=== PATIENT | female | born 1960 | race Caucasian/White ===

== ENCOUNTER → 2020-08-05 15:20 | Outpatient (BNVA) | payer OTHER, SELFPAY | PROVIDERS: PCP Physician Assistant Medical; Visit Provider Anesthesiology | DX: M79.18 Myalgia, other site (principal); M54.2 Cervicalgia; M47.812 Spondylosis without myelopathy or radiculopathy, cervical region | CPT/HCPCS: 20552; 99212; J3300 ==

== ENCOUNTER → 2020-09-09 16:03 | Outpatient (BNVA) | payer OTHER, SELFPAY | PROVIDERS: PCP Physician Assistant Medical; Visit Provider Anesthesiology | DX: Z76.89 Persons encountering health services in other specified circumstances (principal) ==

== ENCOUNTER 2020-09-29 05:24 | Outpatient (REF) | payer OTHER, SELFPAY ==
--- NOTE | 2020-09-29 13:51 | FL_ITS ---
EXAMINATION: XR FLUOROSCOPY WITH IMAGES CLINICAL INFORMATION: Left-sided neck pain. Spondylosis with myelopathy cortical atrophy. COMPARISON: None. TECHNIQUE: Fluoroscopy performed by Fara Gonzales NP. Fluoroscopy time: 0.6 minutes DAP: 1.90 Gycm2 Images: 6 FINDINGS: There are needle positioned lateral to right C3 through C7 facet joints for therapeutic MBB. The soft tissues are unremarkable. FL/FL guidance in treatment room IMPRESSION: Fluoroscopy was provided to referring position for right neck MBB.
== END 2020-09-29 05:25 | disposition home or self-care (01) ==
LOC: HO.RADIR 05:24
PROVIDERS: Visit Provider Anesthesiology
DX: M47.812 Spondylosis without myelopathy or radiculopathy, cervical region (principal); M54.2 Cervicalgia
CPT/HCPCS: 64490; 64491; 64492; J3300; Q9967

== ENCOUNTER → 2020-11-02 11:18 | Outpatient (BNVA) | payer OTHER, SELFPAY | PROVIDERS: PCP Internal Medicine; Visit Provider Anesthesiology ==

== ENCOUNTER 2021-01-26 06:11 | Outpatient (REF) | payer OTHER, SELFPAY ==
--- NOTE | ~2021-01-26 | FL_ITS ---
EXAMINATION: XR FLUOROSCOPY WITH IMAGES CLINICAL INFORMATION: M54.2 - Cervicalgia COMPARISON: Fluoroscopic spot views cervical spine 09/29/2020 TECHNIQUE: Fluoroscopy performed by Fara Gonzales NP. Fluoroscopy time: 0.6 minutes DAP: 3.04 Gycm2 Images: 5 FINDINGS: There are 5 spinal needles overlying lateral masses left side cervical spine approximately levels C3, C4, C5, C6, and C7. There is contrast noted in the nerve sheaths. No visible vascular communication. FL/FL guidance in treatment room IMPRESSION: Fluoroscopy for pain management procedures.
== END 2021-01-26 06:12 | disposition home or self-care (01) ==
LOC: HO.RADIR 06:11
PROVIDERS: Visit Provider Anesthesiology
DX: M47.812 Spondylosis without myelopathy or radiculopathy, cervical region (principal); M54.2 Cervicalgia; M79.18 Myalgia, other site
CPT/HCPCS: 64490; 64491; 64492; J1100; J3300; Q9967

== ENCOUNTER → 2021-03-01 08:18 | Outpatient (BNVA) | payer OTHER, SELFPAY | PROVIDERS: PCP Internal Medicine; Visit Provider Anesthesiology ==

== ENCOUNTER → 2021-04-26 10:04 | Outpatient (BNVA) | payer OTHER, SELFPAY | PROVIDERS: PCP Internal Medicine; Visit Provider Anesthesiology ==

== ENCOUNTER 2021-06-11 09:44 | Day surgery (SDC) | payer OTHER, SELFPAY ==
[2021-06-08 10:13] VITALS: BMI 26.9
--- NOTE | 2021-06-10 14:11 | HO.ANESPROP2 ---
HPI - Anesthesia Eval Consult details Narrative: 60yo F for Left Therapeutic C3-C7 Medial Branch Blocks PMFSH Active Problems Active Problems: All Active Problems (Updated 06/08/21 @ 10:06 by Roopa Spaulding RN) Myofascial pain syndrome (Acute) Spondylosis of cervical region without myelopathy or radiculopathy (Acute) Cervicalgia (Acute) Past Medical History Medical History Anxiety and depression Asthma Back pain Cervicalgia Hx of heartburn Hx of renal calculi Myofascial pain syndrome Shoulder pain, left Spondylosis of cervical region without myelopathy or radiculopathy Surgical History Surgical History Hx laparoscopic cholecystectomy Hx of colonoscopy Social History Social History (Updated 06/08/21 @ 10:08 by Roopa Spaulding RN) Patient Tobacco Use Status: Former Tobacco user Quit Date: 2001 Meds Allergies Allergy/AdvReac Type Severity Reaction Status Date / Time No Known Allergies Allergy Verified 06/11/21 11:04 Home Medications Medication Instructions Recorded Confirmed Last Taken Type atorvastatin 20 mg tablet 20 mg PO BEDTIME 08/05/20 06/08/21 Unknown History cholecalciferol (vitamin D3) 50 50 mcg PO DAILY 08/05/20 06/08/21 Unknown History mcg (2,000 unit) capsule methocarbamol 500 mg tablet 500 mg PO BID PRN 08/05/20 06/08/21 Unknown History clonidine HCl 0.1 mg tablet 0.1 mg PO BID 03/01/21 06/08/21 Unknown History albuterol sulfate 90 mcg/actuation 2 puff INHALATION QID PRN 06/08/21 06/08/21 Unknown History aerosol inhaler (ProAir HFA) bupropion HCl 150 mg 24 hr tablet, 150 mg PO QAM 06/08/21 06/08/21 06/11/21 08:20 History extended release fluticasone propionate 50 1 spray INTRANASAL DAILY 06/08/21 06/08/21 Unknown History mcg/actuation nasal spray,suspension sertraline 100 mg tablet (Zoloft) 100 mg PO BID 06/08/21 06/08/21 06/11/21 08:20 History trazodone 100 mg tablet 2 tab PO BEDTIME 06/08/21 06/08/21 Unknown History Exam Exam Date and Time: June 10, 2021 1412 Height,Weight and Vital Signs: Height 5 ft 7 in Weight 78.018 kg Assessment and Plan Assessment Anesthesia Assessment: Chart Reviewed
--- NOTE | ~2021-06-11 | FL_ITS ---
EXAMINATION: XR FLUOROSCOPY WITH IMAGES CLINICAL INFORMATION: Cervical pain. COMPARISON: None. TECHNIQUE: Fluoroscopy performed by Dr. Tanner Jones. Fluoroscopy time: 0.9 minutes DAP: 3.58 mGycm2 Images: 5 FINDINGS: There are 5 images of the AP cervical spine revealing needle positioned adjacent to left C6, C5, C4, C3 and C2 pedicles with contrast opacifying the C6 soft tissues. Visualized bones and the disc levels are maintained normal. FL/FL guidance in OR IMPRESSION: Fluoroscopy was provided to referring doctor for pain management.
[2021-06-11 11:15] VITALS: BP 149/73; PULSE 57; RESP 18; TEMP 36.8; O2SAT 98
[2021-06-11] MEDS: Lactated Ringers 1,000 ML 100 ML IVCONT (11:26)
--- NOTE | 2021-06-11 11:45 | MHC.SHP ---
Pre-Procedural Eval Section A Date of Service: 06/11/21 Section B Chief Complaint: spondylosis cervical Details of Present Illness: Spondylosis cervical without myelopathy or radiculopathy mostly on the left side. Relevant Family History (Specify if Yes): No Relevant Social History: None Present Medications: see Short Stay Collaborative assessment Medical History: No relevant PMH History of Previous Operations: No relevant previous surgery Allergies: Allergies Allergy/AdvReac Type Severity Reaction Status Date / Time No Known Allergies Allergy Verified 06/11/21 11:04 Review of Systems Sugical H&P ROS: Negative: Constitution, Cardiovascular, Respiratory, Neurological, Psychiatric, Hem-Onc, Allergic/Immunologic, Gastrointestinal, Genitourinary, Musculoskeletal, Integumentary, Endocrine and Eyes/Ears/Nose/Throat Exam Surgical H&P Exam: Normal: HEENT, Normal: Heart, Normal: Lungs, Normal: Extremities, Normal: Abdomen, Normal: Skin and Normal: Neurological Plan Diagnosis/Plan: Unchanged I have reviewed the history and physical and performed a pertinent physical examination on my patient. No changes have occurred unless specified.
--- NOTE | 2021-06-11 11:46 | P.BOP_ITS ---
Brief Operative Note Date of Service: 06/11/21 Pre-op diagnosis: Spondylosis cervical without myelopathy or radiculopathy Procedure: Left-sided C3-C4-C5-C6 and C7 medial branch blocks. Implants: None Surgeon: Tanner Jones MD Anesthesia: MAC Was an Lay Out Drafter used for this Procedure?: No Estimated blood loss (mL): 3 Pathology: none sent Condition: stable Disposition: PACU
--- NOTE | 2021-06-11 11:47 | W.PM.OPN ---
Operative Note Operative Note Date of Service: 06/11/21 Narrative: Informed consent was explained to the patient. All questions were explained and? answered.? The patient was taken inside the operating room where she was positioned prone on the operating table.? Citizen Of [place] Society of Anesthes[employer] monitors were applied.? Patient was minimally to moderately sedated. ? Time-out was performed delineating correct site, side, the nature of the procedure, patient's allergy, preoperative antibiotic if needed.? All operating room staff was participating in OR time-out procedure. ? ? The the back of the neck and upper back and shoulders were prepped with ChloraPrep and draped with sterile towels.? Sterilely draped C-arm was brought over the operating field and sq picture of C3 through C7 vertebrae were delineated on the screen.? Point of interest were delineated as left lateral masses of the vertebra as above. The waistline of each lateral mass of those vertebrae was chosen as the site of the injection. The projection of the point of interest to the skin were injected with the small amount of local anesthetic lidocaine 2% 1-1.5 cc.? After that 22 gauge 3-1/2 inch spinal needle was driven sequentially to the points of interest in tunnel vision fashion. After needles gently contacted the bone at the point of interests the needle was injected with small amount of the contrast.? The injection of the contrast did not demonstrate any intravascular or intrathecal spread of the contrast.? After that injection of the? bupivacaine 0.5%-1cc was performed at each needle location.? ? Upon completion of the injections? needle was? removed and sterile Band-Aids were applied.? The? patient was awaken and taken outside of the operating room to recovery room where she recovered uneventfully.
[2021-06-11 14:00] VITALS: BP 151/68; PULSE 61; RESP 16; TEMP 36.1; O2SAT 98
[2021-06-11 14:15] VITALS: BP 141/63; PULSE 57; RESP 18; TEMP 36.1; O2SAT 97
== END 2021-06-11 14:46 | disposition home or self-care (01) ==
PROVIDERS: Visit Provider Anesthesiology
PROC: (CPT 64490; principal; 2021-06-11 11:40)
DX: M47.812 Spondylosis without myelopathy or radiculopathy, cervical region (principal); M54.2 Cervicalgia; M79.18 Myalgia, other site
CPT/HCPCS: 64490; 64491; 64492; J2250; J3010; Q9967

== ENCOUNTER → 2021-07-19 11:43 | Outpatient (BNVA) | payer OTHER, SELFPAY | PROVIDERS: Visit Provider Anesthesiology ==

== ENCOUNTER 2021-08-24 05:49 | Outpatient (REF) | payer OTHER, SELFPAY ==
--- NOTE | ~2021-08-24 | FL_ITS ---
EXAMINATION: XR FLUOROSCOPY WITH IMAGES CLINICAL INFORMATION: M54.2 - Cervicalgia COMPARISON: Fluoroscopic spot views 06/11/2021 TECHNIQUE: Fluoroscopy performed by Dr. Tanner Jones. Fluoroscopy time: 0.8 minutes DAP: 2.64 Gycm2 Images: 5 FINDINGS: There are spinal needles overlying the left lateral masses approximately levels of C3-C7. There is contrast in the paraspinal soft tissues and nerve sheaths. No visible vascular communication. FL/FL guidance in treatment room IMPRESSION: Fluoroscopy for pain management procedures.
== END 2021-08-24 05:50 | disposition home or self-care (01) ==
LOC: HO.RADIR 05:49
PROVIDERS: Visit Provider Anesthesiology
DX: M54.2 Cervicalgia (principal); M47.812 Spondylosis without myelopathy or radiculopathy, cervical region; M79.18 Myalgia, other site
CPT/HCPCS: 64490; 64491; 64492; J3300; Q9967

== ENCOUNTER → 2021-10-11 11:41 | Outpatient (BNVA) | payer OTHER, SELFPAY | PROVIDERS: Visit Provider Anesthesiology | DX: M54.2 Cervicalgia (principal); M47.812 Spondylosis without myelopathy or radiculopathy, cervical region; M79.18 Myalgia, other site | CPT/HCPCS: 99212 ==

== ENCOUNTER → 2021-11-01 11:07 | Outpatient (BNVA) | payer OTHER, SELFPAY | PROVIDERS: Visit Provider Anesthesiology | DX: M54.2 Cervicalgia (principal); M47.812 Spondylosis without myelopathy or radiculopathy, cervical region; M79.18 Myalgia, other site | CPT/HCPCS: 99212 ==

== ENCOUNTER → 2021-11-22 11:10 | Outpatient (BNVA) | payer OTHER, SELFPAY | PROVIDERS: Visit Provider Anesthesiology | DX: M54.2 Cervicalgia (principal); M47.812 Spondylosis without myelopathy or radiculopathy, cervical region; M79.18 Myalgia, other site | CPT/HCPCS: 99212 ==

== ENCOUNTER 2022-04-12 06:14 | Outpatient (REF) | payer OTHER, SELFPAY ==
--- NOTE | ~2022-04-12 | FL_ITS ---
EXAMINATION: XR FLUOROSCOPY WITH IMAGES CLINICAL INFORMATION: M47.812 - Spondylosis without myelopathy or radiculopathy, cervical region COMPARISON: None. TECHNIQUE: Fluoroscopy performed by Dr. Tanner Jones. Fluoroscopy time: 0.9 minutes. Cumulative Dose: 3.47 mGy. DAP: 0.947 Gy-cm2. Images: 6. FINDINGS: There are spinal needles overlying the left lateral masses cervical spine approximately levels of C3 through C7. There is contrast in the paraspinal soft tissues and some nerve sheaths. No visible vascular communication. FL/FL guidance in treatment room IMPRESSION: Fluoroscopy for pain management procedure.
== END 2022-04-12 06:15 | disposition home or self-care (01) ==
LOC: HO.RADIR 06:14
PROVIDERS: Visit Provider Anesthesiology
DX: M47.812 Spondylosis without myelopathy or radiculopathy, cervical region (principal); M54.2 Cervicalgia
CPT/HCPCS: 64490; 64491; 64492; J1100; J3300; J3301

== ENCOUNTER → 2022-06-20 14:57 | Outpatient (BNVA) | payer OTHER, SELFPAY | PROVIDERS: Visit Provider Anesthesiology | DX: M54.2 Cervicalgia (principal); M47.812 Spondylosis without myelopathy or radiculopathy, cervical region; M79.18 Myalgia, other site; M46.1 Sacroiliitis, not elsewhere classified; M53.3 Sacrococcygeal disorders, not elsewhere classified | CPT/HCPCS: 20552; 99212; J2795; J3300; J3301 ==

== ENCOUNTER 2022-07-12 06:12 | Outpatient (REF) | payer OTHER, SELFPAY ==
--- NOTE | ~2022-07-12 | FL_ITS ---
EXAMINATION: XR FLUOROSCOPY WITH IMAGES CLINICAL INFORMATION: M53.3 - Sacrococcygeal disorders, not elsewhere classified COMPARISON: None. TECHNIQUE: Fluoroscopy performed by Dr. Tanner Jones. Fluoroscopy time: 0.1 minutes. Cumulative Dose: 2.34 mGy. DAP: 0.638 Gy-cm2. Images: 2. FINDINGS: Spinal needle overlies the mid left SI joint. There is contrast in the periarticular soft tissues with probable early intra-articular contrast. No vasculature communication appreciated. FL/FL guidance in treatment room IMPRESSION: Fluoroscopy for pain management procedure.
== END 2022-07-12 06:13 | disposition home or self-care (01) ==
LOC: CF 06:12
PROVIDERS: Visit Provider Anesthesiology
DX: M46.1 Sacroiliitis, not elsewhere classified (principal); M53.3 Sacrococcygeal disorders, not elsewhere classified; M47.812 Spondylosis without myelopathy or radiculopathy, cervical region; M79.18 Myalgia, other site; M54.2 Cervicalgia
CPT/HCPCS: 27096; J2795; J3300; J3301

== ENCOUNTER → 2022-08-29 08:17 | Outpatient (BNVA) | payer OTHER, SELFPAY | PROVIDERS: Visit Provider Anesthesiology | DX: M47.812 Spondylosis without myelopathy or radiculopathy, cervical region (principal); M54.2 Cervicalgia; M79.18 Myalgia, other site; M46.1 Sacroiliitis, not elsewhere classified; M53.3 Sacrococcygeal disorders, not elsewhere classified | CPT/HCPCS: 99212 ==

== ENCOUNTER → 2022-10-05 15:46 | Outpatient (BNVA) | payer OTHER, SELFPAY | PROVIDERS: Visit Provider Anesthesiology | DX: M54.2 Cervicalgia (principal); M47.812 Spondylosis without myelopathy or radiculopathy, cervical region; M79.18 Myalgia, other site; M46.1 Sacroiliitis, not elsewhere classified; M53.3 Sacrococcygeal disorders, not elsewhere classified | CPT/HCPCS: 20552; J2795; J3301 ==

== ENCOUNTER → 2022-12-05 08:50 | Outpatient (BNVA) | payer OTHER, SELFPAY | PROVIDERS: Visit Provider Anesthesiology | DX: M54.2 Cervicalgia (principal); M47.812 Spondylosis without myelopathy or radiculopathy, cervical region; M79.18 Myalgia, other site; M46.1 Sacroiliitis, not elsewhere classified; M53.3 Sacrococcygeal disorders, not elsewhere classified | CPT/HCPCS: 99212 ==

== ENCOUNTER → 2023-04-26 13:32 | Outpatient (BNVA) | payer OTHER, SELFPAY | PROVIDERS: Visit Provider Physician Assistant Medical | DX: S90.31XD Contusion of right foot, subsequent encounter (principal); W22.8XXA Striking against or struck by other objects, initial encounter | CPT/HCPCS: 99203 ==

== ENCOUNTER 2023-05-17 11:42 | Outpatient (AMB) | payer OTHER, SELFPAY ==
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
[2023-05-17 11:50] VITALS: BP 126/68; PULSE 71; RESP 17; O2SAT 97; BMI 27.7
== END 2023-05-17 12:04 | disposition home or self-care (01) ==
PROVIDERS: Visit Provider Anesthesiology
DX: M54.2 Cervicalgia (principal); M47.812 Spondylosis without myelopathy or radiculopathy, cervical region; M79.18 Myalgia, other site; M46.1 Sacroiliitis, not elsewhere classified; M53.3 Sacrococcygeal disorders, not elsewhere classified
CPT/HCPCS: 99214

== ENCOUNTER → 2023-05-17 11:42 | Outpatient (BNVA) | payer OTHER, SELFPAY | PROVIDERS: Visit Provider Anesthesiology | DX: M47.812 Spondylosis without myelopathy or radiculopathy, cervical region (principal); M54.2 Cervicalgia; M79.18 Myalgia, other site; M46.1 Sacroiliitis, not elsewhere classified; M53.3 Sacrococcygeal disorders, not elsewhere classified | CPT/HCPCS: 99212 ==

== ENCOUNTER 2023-06-06 06:03 | Outpatient (REF) | payer OTHER, SELFPAY ==
--- NOTE | ~2023-06-06 | FL_ITS ---
EXAMINATION: XR FLUOROSCOPY WITH IMAGES CLINICAL INFORMATION: Spondylosis without myelopathy or radiculopathy, cervical region. COMPARISON: None available. TECHNIQUE: Fluoroscopy Supervised By: Dr. Tanner Jones. Fluoroscopy Time: 0.5 minutes. Cumulative Dose: 3.34 mGy. DAP: 0.891 Gycm2. Images: 5. FINDINGS: Images demonstrate needle placement and contrast injection adjacent to the posterior lateral left C3-C6 vertebrae. FL/FL guidance in treatment room IMPRESSION: Fluoroscopic guidance for pain management procedure.
== END 2023-06-06 06:04 | disposition home or self-care (01) ==
LOC: CF 06:03
PROVIDERS: Visit Provider Anesthesiology
DX: M47.812 Spondylosis without myelopathy or radiculopathy, cervical region (principal); M54.2 Cervicalgia
CPT/HCPCS: 64490; 64491; 64492; J3301

== ENCOUNTER 2023-06-06 09:22 | Outpatient (AMB) | payer OTHER, SELFPAY ==
--- NOTE | 2023-06-06 09:51 | MHC.OFFVIS ---
Intake Vital Signs 06/06/23 10:42 06/06/23 10:43 Height 5 ft 7 in 5 ft 7 in Weight 177 lb 177 lb BMI 27.7 27.7 BP 114/70 120/80 Blood Pressure Location Lt brachial Lt brachial Position Sitting Sitting Respiration 16 16 Pulse 62 64 Pulse Source Pulse Oximeter Pulse Oximeter Pulse Oximetry (%) 96 97 Oxygen Delivery Method Room Air Room Air Comment pre-op post-op Intake Visit Reasons: L C3-C4-C5-C6 THERAPEUTIC MBB/LOCAL *ATIVAN Allergies No Known Allergies Allergy (Verified 06/06/23 10:44) PFSH Medical History (Updated 06/20/22 @ 15:47 by Tanner Jones MD) Hx of heartburn Hx of renal calculi Anxiety and depression Asthma Shoulder pain, left Back pain Myofascial pain syndrome Spondylosis of cervical region without myelopathy or radiculopathy Cervicalgia Surgical History Hx of colonoscopy Hx laparoscopic cholecystectomy Social History (Updated 06/08/21 @ 10:08 by Roopa Spaulding RN) Patient Tobacco Use Status: Former Tobacco user Quit Date: 2001 Physical Exam Vital Signs: Last Vital Signs Pulse 64 06/06/23 10:43 Resp 16 06/06/23 10:43 BP 120/80 06/06/23 10:43 Pulse Ox 97 06/06/23 10:43 Oxygen Delivery Method Room Air 06/06/23 10:43 BMI result Body Mass Index 27.7 Assessment & Plan Assessment & Plan (1) Spondylosis of cervical region without myelopathy or radiculopathy: Code(s): M47.812 - Spondylosis without myelopathy or radiculopathy, cervical region (2) Cervicalgia: Code(s): M54.2 - Cervicalgia Plan Therapeutic Cervical MBBs Informed consent was explained to the patient. All questions were explained and? answered.? The patient was taken inside the operating room where the patient was positioned prone on the operating table.. Time-out was performed delineating correct site, side, the nature of the procedure, patient's allergy, preoperative antibiotic if needed.? All operating room staff was participating in OR time-out procedure. The posterior neck was prepped with ChloraPrep and draped with sterile towels.? Sterilely draped C-arm was brought over the operating field and square picture of C3, C4,C5, C6? vertebrae? were delineated on the screen.? Point of interest were delineated as left lateral? masses of the above mentioned vertebrae. The waste line of the lateral masses on the left was chosen as the final needle target.The projection of the point of interest to the skin were injected with the small amount of local anesthetic lidocaine 2% 1-1.5 cc.? After that 22 gauge QP spinal needles were driven to the point of interest in tunnel vision fashion. After needles gently contacted the bone at the point of interests the lateral view was obtained for each needle and needle? was adjusted to be in the centroid of the lateral mass paralelloid projection. the needles was injected with small amount of bupivacaine 0.5%-1cc mixad with kenalog. Total dose of kenalog was 40 mg..? Upon completion of the injections? needles were removed and sterile dressings were applied patient was awaken and taken outside of the operating room to recovery room where she recovered uneventfully.? Orders: Orders FL guidance in treatment room Today M47.812 - Spondylosis without myelopathy or radiculopathy, cervical region Coding Level of Care Code Procedure Only Diagnoses Spondylosis of cervical region without myelopathy or radiculopathy M47.812 Cervicalgia M54.2
[2023-06-06 10:42] VITALS: BP 114/70; PULSE 62; RESP 16; O2SAT 96; BMI 27.7
[2023-06-06 10:43] VITALS: BP 120/80; PULSE 64; RESP 16; O2SAT 97; BMI 27.7
== END 2023-06-06 09:53 | disposition home or self-care (01) ==
LOC: HO.PMCPRC 09:22
PROVIDERS: Visit Provider Anesthesiology
DX: M47.812 Spondylosis without myelopathy or radiculopathy, cervical region (principal); M54.2 Cervicalgia
CPT/HCPCS: 64490; 64491; 64492

== ENCOUNTER 2023-07-10 10:25 | Outpatient (AMB) | payer OTHER, SELFPAY ==
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
[2023-07-10 10:54] VITALS: BP 146/65; PULSE 95; RESP 14; O2SAT 96; BMI 27.2
== END 2023-07-10 10:54 | disposition home or self-care (01) ==
PROVIDERS: Visit Provider Anesthesiology
DX: M54.2 Cervicalgia (principal); M47.812 Spondylosis without myelopathy or radiculopathy, cervical region; M79.18 Myalgia, other site; M46.1 Sacroiliitis, not elsewhere classified; M53.3 Sacrococcygeal disorders, not elsewhere classified
CPT/HCPCS: 20552; 99214

== ENCOUNTER → 2023-07-10 10:25 | Outpatient (BNVA) | payer OTHER, SELFPAY | PROVIDERS: Visit Provider Anesthesiology | DX: M54.2 Cervicalgia (principal); M47.812 Spondylosis without myelopathy or radiculopathy, cervical region; M79.18 Myalgia, other site; M46.1 Sacroiliitis, not elsewhere classified; M53.3 Sacrococcygeal disorders, not elsewhere classified | CPT/HCPCS: 20552; 99212 ==

== ENCOUNTER 2024-01-23 06:09 | Outpatient (REF) | payer BC, SELFPAY ==
--- NOTE | ~2024-01-23 | FL_ITS ---
EXAMINATION: XR FLUOROSCOPY WITH IMAGES CLINICAL INFORMATION: Left cervical pain injections. COMPARISON: Fluoroscopy dated 11/06/2022. TECHNIQUE: Fluoroscopy Supervised By: Dr. Tanner Jones. Fluoroscopy Time: 0.4 mm. Cumulative Dose: 1.40 mGy. DAP: 0.0244 Gycm2. Images: 4. FINDINGS: The submitted images show an injection needles with injected contrast in the vicinity of several upper and mid left cervical neural foramina. FL/FL guidance in treatment room IMPRESSION: Intraoperative fluoroscopic guidance is provided during left cervical spine pain management procedure. Please see the patient's Operative Report for full procedural details.
== END 2024-01-23 06:10 | disposition home or self-care (01) ==
LOC: CF 06:09
PROVIDERS: Visit Provider Anesthesiology
DX: M47.812 Spondylosis without myelopathy or radiculopathy, cervical region (principal); M54.2 Cervicalgia
CPT/HCPCS: 64490; 64492; J2795; J3301; Q9967

== ENCOUNTER 2024-01-23 07:14 | Outpatient (AMB) | payer BC, SELFPAY ==
[2024-01-23 07:21] VITALS: BP 112/68; PULSE 78; RESP 18; O2SAT 97; BMI 27.2
--- NOTE | 2024-01-23 07:21 | MHC.OFFVIS ---
Vital Signs 01/23/24 07:21 01/23/24 08:14 Height 5 ft 7 in Weight 174 lb BMI 27.2 BP 112/68 118/74 Blood Pressure Location Lt brachial Lt brachial Position Sitting Sitting Respiration 18 18 Pulse 78 80 Pulse Source Pulse Oximeter Pulse Oximeter Pulse Oximetry (%) 97 98 Oxygen Delivery Method Room Air Room Air Comment Pre-Op Post-Op Intake Visit Reasons: LEFT THERAPEUTIC C3,C4,C5,C6 MBB Allergies No Known Allergies Allergy (Verified 07/10/23 10:55) PFSH Medical History (Updated 06/20/22 @ 15:47 by Tanner Jones MD) Hx of heartburn Hx of renal calculi Anxiety and depression Asthma Shoulder pain, left Back pain Myofascial pain syndrome Spondylosis of cervical region without myelopathy or radiculopathy Cervicalgia Surgical History Hx of colonoscopy Hx laparoscopic cholecystectomy Social History (Updated 06/08/21 @ 10:08 by Roopa Spaulding RN) Patient Tobacco Use Status: Former Tobacco user Quit Date: 2001 Physical Exam Vital Signs: Last Vital Signs Pulse 80 01/23/24 08:14 Resp 18 01/23/24 08:14 BP 118/74 01/23/24 08:14 Pulse Ox 98 01/23/24 08:14 Oxygen Delivery Method Room Air 01/23/24 08:14 BMI result Body Mass Index 27.2 Assessment & Plan Assessment & Plan (1) Spondylosis of cervical region without myelopathy or radiculopathy: Code(s): M47.812 - Spondylosis without myelopathy or radiculopathy, cervical region Category: Medical (2) Cervicalgia: Code(s): M54.2 - Cervicalgia Category: Medical Plan Therapeutic Cervical MBBs Informed consent was explained to the patient. All questions were explained and? answered.? The patient was taken inside the operating room where the patient was positioned prone on the operating table.. Time-out was performed delineating correct site, side, the nature of the procedure, patient's allergy, preoperative antibiotic if needed.? All operating room staff was participating in OR time-out procedure. The posterior neck was prepped with ChloraPrep and draped with sterile towels.? Sterilely draped C-arm was brought over the operating field and square picture of C3, C4,C5, C6? vertebrae? were delineated on the screen.? Point of interest were delineated as left lateral? masses of the above mentioned vertebrae. The waste line of the lateral masses on the left was chosen as the final needle target.The projection of the point of interest to the skin were injected with the small amount of local anesthetic lidocaine 2% 1-1.5 cc.? After that 22 gauge QP spinal needles were driven to the point of interest in tunnel vision fashion. After needles gently contacted the bone at the point of interests the lateral view was obtained for each needle and needle? was adjusted to be in the centroid of the lateral mass paralelloid projection. the needles was injected with small amount of bupivacaine 0.5%-1cc mixad with kenalog. Total dose of kenalog was 40 mg..? Upon completion of the injections? needles were removed and sterile dressings were applied patient was awaken and taken outside of the operating room to recovery room where she recovered uneventfully.? Orders: Orders FL guidance in treatment room Today M47.812 - Spondylosis without myelopathy or radiculopathy, cervical region Coding Level of Care Code Procedure Only Diagnoses Spondylosis of cervical region without myelopathy or radiculopathy M47.812 Cervicalgia M54.2
[2024-01-23 08:14] VITALS: BP 118/74; PULSE 80; RESP 18; O2SAT 98
== END 2024-01-23 08:08 | disposition home or self-care (01) ==
LOC: HO.PMCPRC 07:14
PROVIDERS: Visit Provider Anesthesiology
DX: M47.812 Spondylosis without myelopathy or radiculopathy, cervical region (principal); M54.2 Cervicalgia
CPT/HCPCS: 64490; 64492

== ENCOUNTER 2025-08-06 07:33 | Outpatient (AMB) | payer MEDICARE, SELFPAY ==
--- NOTE | 2025-08-06 07:30 | A.PHYSOV_ITS ---
Vital Signs 08/06/25 07:34 Height 5 ft 6 in Weight 168 lb BMI 27.1 Intake Visit Reasons: R hip INJ & F/U after 05/31/25 INJ Intake Note: 64 year old female in office today for follow up after Left Sacroiliac Injection 05/31/25 and Right hip injection on 05/29/25. 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 She has been receiving left sacroiliac joint injections with excellent benefit, with the most recent injection on May 31, 2025. The priyanka ent experienced a fall on July 19, 2025, which aggravated her back pain. The patient also reports neck pain and cervicogenic headaches. She has responded well to trigger point injections in the left trapezius muscle and left greater occipital nerve blocks, with the most recent treatments on May 29, 2025. A cervical spine MRI from February 20, 2024, showed mild degenerative changes most prominent at the C5-C6 level. The patient reports knee pain following a fall, with tenderness on the medial joint line. She had a meniscus tear surgery on the same knee in 2004. X-rays taken at urgent care did not reveal any new issues, but the knee remains painful and swollen. Patient has been using tramadol as needed for pain. She has been rationale with her medication use. Her prescription monitoring report has been reviewed. Pain Description - Onset: Chronic lower back pain and left hip pain, aggravated by a fall on July 19, 2025 - Quality: Burning sensation in the hip, aching in the back - Location: Left side of the lower back and left hip - Exacerbating factors: Fall, weight-bearing activities - Relieving factors: Sacroiliac joint injections, trigger point injections Results - Imaging: Cervical spine MRI on February 20, 2024, showed mild degenerative changes at C5-C6 - X-rays: Knee x-rays at urgent care showed no new issues [facility] Medical History (Updated 08/06/25 @ 08:10 by Christian Castellanos DO) Hx of heartburn Hx of renal calculi Anxiety and depression Asthma Shoulder pain, left Back pain Myofascial pain syndrome Spondylosis of cervical region without myelopathy or radiculopathy Cervicalgia Surgical History History of shoulder surgery History of knee surgery Hx of colonoscopy Hx laparoscopic cholecystectomy Social History Patient Tobacco Use Status: Former Tobacco user Review of Systems Narrative Review of Systems - Musculoskeletal: Reports chronic lower back pain, left hip pain, and knee pain - Neurological: Reports cervicogenic headaches and neck pain Denies change in bowel bladder habits, denies fever or chills, denies uncontrolled depression or suicidal ideation Physical Exam Exam Exam: Physical Exam - Musculoskeletal: Tenderness on the medial joint line of the knee Gait was antalgic on the left side. No effusion or crepitance with the examination of the left knee. Dural tension signs were negative. Left SI tenderness with palpation. Provocative maneuvers positive for left SI joint pain including SI compression test, [place] test and LAWRENCE sign. Neurological examination follow up her lower extremities was nonfocal. Left cervical paraspinal tenderness with palpation. Left trapezius tenderness with palpation with defined tender points. Left shoulder range of motion was normal. Cervical range of motion was restricted and side bending to the left. Spurling maneuver was negative. Lhermitte's sign was negative. Patient demonstrated no upper motor neuron signs. Vital Signs: BMI result Body Mass Index 27.1 Office Procedures AMB Hip Injection AMB Hip Injection Procedure Details: Patient was placed in a lateral recumbent position with the right side up. Point of maximum tenderness over greater trochanter was located and marked. Skin was cleansed with alcohol. 1.5 in 22 gauge hypodermic needle was introduced percutaneously and advanced toward the greater trochanter. Once in place total volume of 5 cc containing 40 mg of triamcinolone and 2% lidocaine was injected after negative aspiration for blood and without resistance. Patient tolerated procedure very well without complications. Hip (Bursa) Injection - : Right All charges added?: Procedure code (CPT) selection complete AMB Trigger Point Inject - Phy Therapeutic Injection Details: With patient sitting position 6 tender points were palpated and marked in left cervical paraspinal muscles and left upper trapezius muscle. Six trigger point injections were delivered in a fan-like fashion utilizing total of 2 cc of diluted 2% lidocaine with total volume of 6 cc. Trigger point injections were delivered in a fan-like fashion. Patient tolerated procedure well without complications. [id number]-[id number] Point Injection 1 or 2 sites All charges added?: Procedure code (CPT) selection complete Office Meds Kenalog 40 mg/mL suspension for injection Performing Provider: Christian Castellanos DO Performing [facility] Administered by: Christian Castellanos DO on 08/06/25 08:11 Dose Route Admin Location Dispensed Lot Number Expiration Date [facility] Manager [employer] 40 mg intrabursal 1 mL [id number] [employer] Total Dispensed Waste 1 mL 0 % lidocaine (PF) 20 mg/mL (2 %) injection solution Performing Provider: Christian Castellanos DO Performing [facility] Administered by: Christian Castellanos DO on 08/06/25 08:11 Dose Route Admin Location Dispensed Lot Number Expiration Date [facility] Manager [employer] 40 mg intrabursal 2 mL [id number] Total Dispensed Waste 2 mL 0 % lidocaine (PF) 20 mg/mL (2 %) injection solution Performing Provider: Christian Castellanos DO Performing Location: [facility] Administered by: Christian Castellanos DO on 08/06/25 08:13 Dose Route Admin Location Dispensed Lot Number Expiration Date [facility] Manager [employer] 40 mg IM 2 mL [id number] Total Dispensed Waste 2 mL 0 % Assessment & Plan Assessment & Plan (1) Cervicalgia: Code(s): M54.2 - Cervicalgia Category: Medical (2) Spondylosis of cervical region without myelopathy or radiculopathy: Code(s): M47.812 - Spondylosis without myelopathy or radiculopathy, cervical region Category: Medical (3) Myofascial pain syndrome: Code(s): M79.18 - Myalgia, other site Category: Medical (4) Sacroiliitis: Code(s): M46.1 - Sacroiliitis, not elsewhere classified Category: Medical (5) Sacroiliac joint pain: Code(s): M53.3 - Sacrococcygeal disorders, not elsewhere classified Category: Medical (6) Trochanteric bursitis of right hip: Code(s): M70.61 - Trochanteric bursitis, right hip Category: Medical (7) Sacroiliac dysfunction: Code(s): M53.3 - Sacrococcygeal disorders, not elsewhere classified Category: Medical Plan Pain Management - Affect: Pain impacts daily activities and mood - Analgesia: Sacroiliac joint injections, trigger point injections, and nerve blocks provide relief - Adverse Effects: None reported - Activities of Daily Living: Pain affects mobility and daily functioning - Aberrant Drug Related Behaviors: None reported Plan Patient was informed and verbally consented to the use of an ambient scribe for clinic note documentation during this visit. 1. Chronic Lower Back Pain The patient will continue with sacroiliac joint injections, with the next one planned for August, pending insurance approval. The fall on July 19, 2025, aggravated the pain, and the patient is advised to monitor symptoms and follow up in a month. 2. Left Hip Pain The patient has previously received bursa injections for hip pain and will continue with this management approach. 3. Cervicogenic Headaches The patient has responded well to trigger point injections and occipital nerve blocks, which can be repeated as needed. 4. Neck Pain The patient will continue with trigger point injections to manage neck pain, with the option to repeat in one month if necessary. 5. Knee Pain The patient experienced knee pain following a fall, with x-rays showing no new issues. A follow-up in one month is planned, and an MRI may be considered if symptoms persist. Discussion Notes During the visit, we discussed the continuation of sacroiliac joint injections for chronic lower back pain, with the next injection planned for August, pending insurance approval. We also reviewed the management of cervicogenic headaches and neck pain with trigger point injections and occipital nerve blocks, which can be repeated as needed. For the knee pain, we considered the possibility of an MRI if symptoms persist, following a one-month observation and home exercise period. Patient Instructions - Continue with current pain management regimen, including injections as scheduled. - Monitor knee symptoms and follow up in one month. - Report any worsening of symptoms or new issues immediately. Continue with use of tramadol as needed for pain. No change in medication management. Orders: Orders AMB Trigger Point Injection - Physiatry Today M79.18 - Myalgia, other site AMB Hip/Bursa Injection Today M46.1 - Sacroiliitis, not elsewhere classified, M53.3 - Sacrococcygeal disorders, not elsewhere classified, M54.2 - Cervicalgia, M70.61 - Trochanteric bursitis, right hip, M79.18 - Myalgia, other site Coding Level of Care Code Est Pt Level 4 (20995) Complex EM visit Add On G2211 Diagnoses Cervicalgia M54.2 Spondylosis of cervical region without myelopathy or radiculopathy M47.812 Myofascial pain syndrome M79.18 Sacroiliitis M46.1 Sacroiliac joint pain M53.3 Trochanteric bursitis of right hip M70.61 Sacroiliac dysfunction M53.3 CPT Codes AMB Hip Injection - Hip/Bursa Injection - : Right ([id number]) Therapeutic Injection - Ther Injection 1: [id number] Point Injection 1 or 2 sites ([id number])
[2025-08-06 07:34] VITALS: BMI 27.1
--- OUTSIDE RECORDS SUMMARY | 2025-08-06 07:36 | XMS_ITS | Data Portability ---
Author Organization [facility], [address] Address [address] [place] [address] Assessment No assessment recorded. Plan of Treatment Reminders Order Date Submit Date Provider Last Modified By Organization Details Last Modified Time Details Appointments None recorded. Lab rapid flu (A+B) 2024 025 [email or web address] 247 _[facility], [address] [place] [address], [phone], 5 11:00:23 SARS CoV 2 (COVID-19) Ag, QL, [place], upper respiratory specimen 2024 025 [email or web address] 247 _[facility], [address] [place] [address], [phone], 5 11:00:24 SARS CoV 2 (COVID-19) Ag, QL, IA, upper respiratory specimen 2023 024 [email or web address] 247 _[facility], [address] [place] [address], [phone], 4 17:28:53 rapid flu (A+B) 2021 022 [email or web address] _[facility], [address] [place] [address], [phone], 19:17:32 Referral None recorded. Procedures None recorded. Surgeries None recorded. Imaging None recorded. Medication Orders albuterol sulfate HFA 90 mcg/actuati on aerosol inhaler 2024 025 [facility] [address] [place], [address], 5 11:00:26 doxycycline hyclate 100 mg capsule 2024 025 [facility] [address] [place], [address], 5 11:00:26 cephalexin 500 mg capsule [address]24 [address] [place], [address], 5 09:42:01 benzonatate 200 mg capsule 2023 024 [address], [address] [place], [address], 5 11:57:06 amoxicillin 500 mg capsule [address]/[facility]armacy #2476, [address] [place], [address], 5 11:56:55 prednisone 20 mg tablet 2023 024 [facility] [address] [place], [address], 4 16:50:29 triamcinolo ne acetonide 0.1 % topical cream 2023 024 [facility]/Pharmacy #2476, [address] [place], [address], 4 16:51:30 Medrol (Mark) 4 mg tablets in a dose pack 2021 022 [email or web address] 2 [facility]/Pharmacy #0838, [address] [place] [address], [address], 16:07:12 doxycycline hyclate 100 mg capsule 2021 Verna heller 2 [facility]/Pharmacy #6678, [address] [facility], [place], [address], 16:04:20 Patient TargetsNo targets recorded. Patient Instructions Encounter Date Encounter Id Patient Instructions Last Modified By Organization Details Last Modified Time 09/06/2022 [id number] cough: care instructions Not available 09/06/2022 19:17:[address] l Bronchitis but due to length of symptoms will cover with a steroid and antibiotic. Rest, fluids, humidifier, and sometimes cough suppressants and/or nasal decongestants to help reduce symptoms until your body's immune system kills the virus and the both self-recovers. If symptoms worsen, return to clinic. Fluids You should follow-up with [facility] or your PCP in 2-3 days, or at any time if your condition does not improve or worsens. Any acute change should prompt a visit to the nearest Emergency Department. Not available 09/06/2022 19:21:27 04/28/2024 [id number] Eczema: Care Instructions [email or web address] Not available 04/28/2024 16:52:03 06/15/2024 [id number] coronavirus (covid-19): care instructions [email or web address] Not available 06/15/2024 17:28:51 If you test positive for COVID-19, stay home for at least 5 days and isolate from others in your home. You are likely most infectious during these first 5 days. Wear a high-quality mask if you must be around others at home and in public. Do not go places where you are unable to wear a mask. For travel guidance, see CDC s Travel webpage. Do not travel. Stay home and separate from others as much as possible. Use a separate bathroom, if possible. Take steps to improve ventilation at home, if possible. Don t share personal household items, like cups, towels, and utensils. Monitor your symptoms. If you have an emergency warning sign (like trouble breathing), seek emergency medical care immediately. If you had symptoms and: Your symptoms are improving You may end isolation after day 5 if: You are fever-free for 24 hours (without the use of fever-reducing medication). Your symptoms are not improving Continue to isolate until: You are fever-free for 24 hours (without the use of fever-reducing medication). Your symptoms are improving. Regardless of when you end isolation Until at least day 11: Avoid being around people who are more likely to get very sick from COVID-19. Remember to wear a high-quality mask when indoors around others at home and in public. Do not go places where you are unable to wear a mask until you are able to discontinue masking (see below). For travel guidance, see [facility] s Travel webpage. [email or web address] Not available 06/15/2024 17:26:53 10/05/2024 [id number] ingrown toenail: care instructions [email or web address] Not available 10/05/2024 12:28:18 10/20/2024 [id number] You can take ove r the counter tylenol or ibuprofen per package instructions for the pain. See printed instructions. Follow-up with your doctor if no improvement in 1 week. Seek Emergency Medical evaluation for any worsening symptoms. [email or web address] Not available 10/20/2024 11:00:30 Reason for Referral None Reported. Results Created Date Observation Date Name Description Value Unit Range Abnormal Flag Note LastModifiedBy Organization Detail LastModifiedTime 09/06/20 22 09/06/2022 rapid flu (A+B) Unknown Analyte Normal = Negati ve Not Available [facility] [address] [place] [address], [phone], 09/06/2022 18:41:37 09/06/20 22 09/06/2022 rapid flu (A+B) Unknown Analyte Normal = Negati ve Not Available [facility], [address], 09/06/2022 18:41:37 09/06/20 22 09/06/2022 rapid flu (A+B) Unknown Analyte negati ve Not Available [facility] ie [address], [address], 09/06/2022 18:41:37 09/06/20 22 09/06/2022 rapid flu (A+B) Unknown Analyte negati ve Not Available [facility], [address], 09/06/2022 18:41:37 06/15/20 24 06/15/2024 SARS CoV 2 (COVI D-19) Ag, QL, IA, upper respi rator y speci men Unknown Analyte positi ve Not Available [facility], [address], 06/15/2024 17:01:21 06/15/20 24 06/15/2024 SARS CoV 2 (COVI D-19) Ag, QL, IA, upper respi rator y speci men Unknown Analyte yes Not Available [address], [address], 06/15/2024 17:01:21 10/20/19 25 10/20/2024 SARS CoV 2 (COVI D-19) Ag, QL, IA, upper respi rator y speci men Unknown Analyte negati ve Not Available [facility], [address], 10/20/2024 09:44:11 10/20/19 25 10/20/2024 SARS CoV 2 (COVI D-19) Ag, QL, IA, upper respi rator y speci men Unknown Analyte yes Not Available [address], [address], 10/20/2024 09:44:11 10/20/19 25 10/20/2024 rapid flu (A+B) Unknown Analyte negati ve Not Available [address], [address], 10/20/2024 09:43:55 10/20/1910/20/2024 rapid flu (A+B) Unknown Analyte negati ve Not Available [address] [address] [place], [address], 10/20/2024 09:43:55 10/20/1910/20/2024 rapid flu (A+B) Unknown Analyte yes Not Available [address] [address] [place], [address], 10/20/2024 09:43:55 Result Notes None recorded. Problems Name Problem SNOMED Code Status Onset Date Resolution Date Notes Provider Name and Address Organization Details Recorded Time Cholesterol measurement Active Stephanie Dow null, [place] - [facility] 5 12:00:04 Anxiety 00770171 Active 2021 Dasia Thurman null, PA - [facility] 2 18:39:05 Depressive disorder 44532816 Active 2021 Dasia Thurman null, PA - [facility] 2 18:39:11 Hyperlipidemia 92158919 Active 2021 Dasia Thurman null, PA - [facility] 2 18:39:29 Acne 60002160 Active 2023 Gretchen Gasca null, PA - [facility] 4 16:08:06 Atopic dermatitis 19726790 Active 2023 Santiago Cooper, TIM [address] [place], [address] [facility] [place] - [facility] 4 16:50:45 Problem Notes None recorded. Medical Equipment None Reported. Allergies No known drug allergies Medications Name Sig Start Date Stop Date Status Note LastModified by Organization Details LastModified Time tretinoin 0.1 % topical cream PLEASE SEE ATTACHED FOR DETAILED DIRECTION S 06/15 completed Not Available Not Available Not Available amoxicillin 500 mg capsule TAKE 1 CAPSULE BY MOUTH THREE TIMES A DAY FOR 10 DAYS 10/05 completed Not Available Not Available Not Available clonidine HCl 0.1 mg tablet TAKE 1 TABLET BY MOUTH TWICE A DAY active Not Available Not Available No t Available doxycycline hyclate 100 mg capsule Take 1 capsule twice a day by oral route as directed for 10 days, for bronchiti s. 2024 active Not Available Not Available Not Avai lable atorvastati n 20 mg tablet TAKE 1 TABLET BY MOUTH EVERY DAY active Not Available Not Available No t Available nabumetone 750 mg tablet TAKE 1 TABLET BY MOUTH TWICE A DAY NEEDED active Not Available Not Available No t Available benzonatate 200 mg capsule Take 1 capsule 3 times a day by oral route as needed for 7 days, for cough. 10/05 completed Not Available Not Available Not Available Medrol (Mark) 4 mg tablets in a dose pack Take 1 dose pk by oral route as directed. 04/28 completed Not Available Not Available Not Available prednisone 20 mg tablet TAKE 2 TABLETS EVERY DAY BY ORAL ROUTE IN THE MORNING FOR 4 DAYS, FOR INFLAMMAT ION. 06/15 completed Not Available Not Available Not Available sertraline 100 mg tablet TAKE 2 TABLETS BY MOUTH EVERY DAY active Not Available Not Available No t Available acyclovir 400 mg tablet TAKE 1 TABLET BY MOUTH EVERY DAY 06/15 completed Not Available Not Available Not Available doxycycline monohydrate 100 mg tablet TAKE 1 TABLET BY MOUTH TWICE A DAY FOR 10 DAYS 06/15 completed Not Available Not Available Not Available tramadol 50 mg tablet TAKE 1 TABLET BY MOUTH EVERY 4 HOURS NEEDED FOR 7 DAYS active Not Available Not Available No t Available triamcinolo ne acetonide 0.1 % topical cream APPLY A THIN LAYER TO THE AFFECTED AREA(S) BY TOPICAL ROUTE 2 TIMES PER DAY X 14 DAY. 06/15 completed Not Available Not Available Not Available famotidine 20 mg tablet TAKE 1 TABLET BY MOUTH 2 TIMES DAILY NEEDED FOR HEARTBURN . active Not Available Not Available No t Available calcium 500 mg (as calcium carbonate 1,250 mg) tablet TAKE 1 TABLET BY MOUTH EVERY DAY active Not Available Not Available No t Available trazodone 100 mg tablet TAKE 2 TABLETS BY MOUTH AT BEDTIME active Not Available Not Available No t Available baclofen 10 mg tablet TAKE 1 TABLET BY MOUTH 3 TIMES A DAY 09/21 /2024 completed Not Available Not Available Not Available doxycycline monohydrate 100 mg capsule TAKE ONE CAP BY MOUTH TWICE A DAY TAKE WITH FOOD. DO NOT LAY DOWN ONE HOUR AFTER TAKING. 06/15 completed Not Available Not Available Not Available cephalexin 500 mg capsule TAKE 1 CAPSULE BY MOUTH EVERY 12 HOURS FOR 7 DAYS 10/20 completed Not Available Not Available Not Available pantoprazol e 40 mg tablet,nhi yed release TAKE 1 TABLET BY MOUTH DAILY IN AM ON EMPTY STOMACH, WAIT 30 MINS, THEN EAT TO ACTIVATE MEDICATIO N 10/05 completed Not Available Not Available Not Available prednisone 50 mg tablet TAKE 1 ORAL EVERY DAY FOR 5 DAYS 06/15 completed Not Available Not Available Not Available hydroxyzine HCl 25 mg tablet TAKE 1 TABLET BY MOUTH 3 TIMES DAILY NEEDED FOR ITCHING. 10/05 completed Not Available Not Available Not Available azelastine 137 mcg (0.1 %) nasal spray USE 1 SPRAY 2 TIMES A DAY NEEDED SNEEZING/ ITCHING 06/15 completed Not Available Not Available Not Available epinephrine 0.3 mg/0.3 mL injection, auto-inject or INJECT 1 PEN INTRAMUSC ULARLY NEEDED FOR ANAPHYLAX IS active Not Available Not Available No t Available estradiol 0.01% (0.1 mg/gram) vaginal cream PLEASE SEE ATTACHED FOR DETAILED DIRECTION S active Not Available Not Available No t Available albuterol sulfate HFA 90 mcg/actuati on aerosol inhaler Inhale 2 puffs 3 times a day by inhalatio n route as directed for 7 days, for wheezing. 2024 active Not Available Not Available Not Avai lable fluticasone propionate 50 mcg/actuati on nasal spray,suspe nsion USE 1 SPRAY IN EACH NOSTRIL DAILY NEEDED active Not Available Not Available No t Available spironolact one 50 mg tablet TAKE 2 TABLETS IN THE MORNING AND ONE TABLET AT NIGHT TIME. 06/15 completed Not Available Not Available Not Available amoxicillin 875 mg-potassiu m clavulanate 125 mg tablet TAKE 1 TABLET BY MOUTH TWICE A DAY FOR 7 DAYS 06/15 completed Not Available Not Available Not Available Premarin 0.625 mg/gram vaginal cream PLACE 2 G VAGINALLY TWICE A WEEK DIRECTED active Not Available Not Available No t Available bupropion HCl XL 150 mg 24 hr tablet, extended release TAKE 1 TABLET BY MOUTH EVERY DAY IN THE MORNING active Not Available Not Available No t Available atorvastati n 10/20 completed Not Available Not Available Not Available clonidine active Not Available Not Aure ilable Not Available fluconazole 04/28 completed Not Available Not Available Not Available spironolact one 06/15 completed Not Available Not Available Not Available Wellbutrin SR active Not Available Not Available Not Available sodium fluoride 1.1 % dental paste BRUSH YOUR TEETH 2 TIMES A DAY USING TOOTHPAST E active Not Available Not Available No t Available sodium,pota ssium,mag sulfates 17.5 gram-3.13 gram-1.6 gram oral soln TAKE DIRECTED 06/15 completed Not Available Not Available Not Available Vitamin D3 50 mcg (2,000 unit) capsule TAKE 1 CAPSULE BY MOUTH EVERY DAY active Not Available Not Available No t Available Myrbetriq 25 mg tablet,exte nded release TAKE ONE TABLET BY MOUTH EVERY DAY 10/20 completed Not Available Not Available Not Available Winlevi 1 % topical cream APPLY TO THE FACE TWICE A DAY. FOLLOW UP WITH [facility] NEEDED. 06/15 completed Not Available Not Available Not Available Vitals Date Recorded Body height Body mass index (BMI) Body weight Oxygen saturation Oxygen saturation in Arterial blood by Pulse oximetry Heart rate Body temperature Systolic And Diastolic Provider Name and Address Organization Details Last Updated DateTime 5 167.64 cm 27.8 kg/m2 31153.8 9 g 97 % 97 % 65 /min 98.5 [degF] 133/80 mm[Hg] Stephanie Dow [facility] - [facility] 5 11:56:05 Date Recorded Body height Body mass index (BMI) Body weight Oxygen saturation Oxygen saturation in Arterial blood by Pulse oximetry Heart rate Body temperature Systolic And Diastolic Provider Name and Address Organization Details Last Updated DateTime 5 167.64 cm 27.9 kg/m2 05929.4 8 g 98 % 98 % 64 /min 98.5 [degF] 135/86 mm[Hg] Stephanie Dow PA - [facility] 5 09:41:17 Date Recorded Body height Body mass index (BMI) Body weight Pain severity - 0-10 verbal numeric rating [Score] - Reported Respiratory rate Body temperature Heart rate Oxygen saturation Oxygen saturation in Arterial blood by Pulse oximetry Systolic And Diastolic Provider Name and Address Organization Details Last Updated DateTime 4 167.64 cm 27.8 kg/m2 35928.8 9 g 9 18 /min 96.8 [degF] 75 /min 98 % 98 % 142/90 mm[Hg] Gretchen Gasca [facility] 4 16:11:40 Date Recorded Body height Body mass index (BMI) Body weight Body temperature Heart rate Oxygen saturation Oxygen saturation in Arterial blood by Pulse oximetry Systolic And Diastolic Provider Name and Address Organization Details Last Updated DateTime 4 167.64 cm 27.8 kg/m2 03338.8 9 g 98.6 [degF] 63 /min 98 % 98 % 135/87 mm[Hg] Stephanie Dow [facility] 4 16:47:47 Date Recorded Body height Body mass index (BMI) Body weight Oxygen saturation Oxygen saturation in Arterial blood by Pulse oximetry Heart rate Respiratory rate Body temperature Systolic And Diastolic Provider Name and Address Organization Details Last Updated DateTime 2 168.91 cm 27.8 kg/m2 81531.6 6 g 99 % 99 % 69 /min 20 /min 98.3 [degF] 150/87 mm[Hg] Dasia Thurman [facility] 2 18:41:13 Social History Question Answer Notes LastModified by En Noir Details LastModified Time Tobacco Smoking Status Never Smoker Gretchen tadeo [facility] 04/28/2024 16:08:37 Have You Had A Flu Shot This Season? Yes Information not available 04/28/2024 If No, Would You Like A Flu Shot Today? No Information not available 04/28/2024 What Is Your Relationship Status? Information not available 06/15/2024 Have You Recently Traveled Abroad? No Information not available 06/15/2024 Sex: Unknown Functional Status Question Answer Note LastModified by [employer] ion Details LastModified Time Do you use any illicit or recreational drugs? No Information not available 06/15/2024 Do you or have you ever used any other forms of tobacco or nicotine? No Information not available 10/20/2024 What is your level of alcohol consumption? None Information not available 04/28/2024 Are you currently employed? Yes Information not available 04/28/2024 Mental Status None recorded. Family History Relationship Description Onset Age of this Age Resolved Age Notes LastModified by Organization Details LastModified Time Father No current problems or disability [email or web address] Not available 08/25 18:39:34 Father Hyperlipidem ia [email or web address] Not available 09/06 18:39:54 Mother No current problems or disability [email or web address] Not available 08/25 18:39:34 Mother Hyperlipidem ia Not available 09/06 18:40:00 Medical History No medical history recorded. Gynecological History Statement/Question Response Is there any chance of ? No LMP N/A Obstetrics History GPAL:G 0 P 0 0 0 0 Past Encounters Encounter ID Performer Location Encounter Start Date Encounter Closed Date Diagnosis/Indication Diagnosis SNOMED-CT Code Diagnosis ICD10 Code Diagnosis IMO Codes Diagnosis Note [id number] [facility] [address] [address] 01/04/2022 13:22:54 01/04/2022 18:33:[id number] [place] [address] [address] [address] 05/12/2018 12:42:08 05/12/2018 13:09:16 [id number] [facility] [address] [facility] [address] [place] [address] 10/04/2021 08:19:35 10/04/2021 09:58:08 [id number] [facility] [address] [address] 12/02/2018 16:06:13 12/02/2018 16:20:23 [id number] [place] [address] [address] 09/06/2022 18:27:21 09/06/2022 19:17:59 Cough 29196924 R05.9 [id number] [place] Cooper [place] [address] [address] 04/28/2024 15:33:41 04/28/2024 16:55:03 Atopic dermatitis 70181232 L20.9 Based on your exam and presentati on, you are being diagnosed with allergic dermatitis . You were prescribed Prednisone - Here is some general Informatio n regarding this medication .1. Make sure you take with Food2. Do not take right before bedtime -this should be taken during the day because it may make you a little more wired. May keep you from sleeping.3 . Prednisone will increase glucose -so if you are a diabetic then you will need to monitor your glucose closely. Please d/c if glucose goes above 300.4. Do not take this medication with Ibuprofen The following is my recommenda tions to help you with your condition: 1. Take Antihistam ine - like Claritin, Bhavya, or benadryl2. Hot showers will make you more itchy.3. No creams or lotions4. Cool Compresses 5. Try not to scratch or itch since this can lead to infection. I would call and schedule an appointmen t with a dermatolog ist if the medication s I wrote you do not help with your condition. You should be seen more urgently if you develop any of the followin. Worsening Redness2. Purulent Discharge from the skin3. Fever > 101.04. Joint Pain5. Swelling [id number] JEFFREY SOLORZANO [place] [address] [address] 06/15/2024 15:28:11 06/15/2024 17:51:57 COVID-19 866183646 U07.1 Black Elderberry Syrup:1-2 tsp 2-3 times a day for 5 days as needed for coughing.S ambucol Black Elderberry Original Syrup (available at [facility] )Gladis Herbs Black Elderberry Syrup, 5.4-Ounce Bottle (available at [employer] or [employer]) Use a cool mist humidifier in the room that you sleep to add moisture to the air, which should soothe the airways and help loosen any mucus that may be present. Clear liquids for comfortFre sh Jaime Root Tea-Cut up fresh jaime root and boil it till fragrant. drink the liquid as a tea. Can add Honey to taste. Also For Sore Throat:Thr oat Comfort Tea (by [employer])Thro at Coat Tea ( by [employer] ) Clear broth soup: Vegetable, Chicken or Beef as tolerated. Salt Water GarglesMix 1 teaspoonfu l of salt in a glass of warm water. Gargle and spit out the salt water mixture one mouthful at a time until the glass is empty. Repeat 4 times daily. GI Clear LiquidsCle ar Liquids:Fr esh Jaime Root Tea-Cut up fresh jaime root and boil it till fragrant. drink the liquid as a tea. Can add Honey to taste.Theo omille teaPepperm int tea (not with GERD-Reflu x)Clear broth soup: Vegetable, Chicken or Beef as tolerated. Acute lymphangitis 07352 05 L03.91 Cough 19729546 R05.9 [id number] [place] [address] [address] 10/05/2024 11:25:06 10/05/2024 12:30:37 Ingrowing nail of toe of right foot [id number] 6902065 L60.0 infected toe nailRx abxTake your antibiotic with food. Eat a yogurt daily or take a probiotic while you are taking the antibiotic .Reviewed with patient potential adverse side effects of the medication .warm water soaks with epsom saltkeep clean and dry after and in between soaks Use OTC ibuprofen as directed on the bottle prn pain. Take with food and do not mix with other NSAIDsUse OTC tylenol as directed on the bottle prn pain or fever Patient advised to follow up as needed for worsening symptoms or no improvemen julius [id number] JEFFREY SOLORZANO MD [address] [address] 10/20/2024 09:27:28 10/20/2024 11:01:55 Cough 56838648 R05.9 CoughBlack Elderberry Syrup:1-2 tsp 2-3 times a day for 5 days as needed for coughing.S ambucol Black Elderberry Original Syrup (available at [facility] )[employer] Black Elderberry Syrup, 5.4-Ounce Bottle (available at [employer] or [employer]) Use a cool mist humidifier in the room that you sleep to add moisture to the air, which should soothe the airways and help loosen any mucus that may be present. Acute bron chitis with bronchospasm 11600321 J20.9 Health Concerns Section Related Observation LastModified by Organization Detai ls LastModified Time None Recorded Concern Status LastModified by Organization Details LastModified Time None Recorded Advance Directives Directive None Recorded Payers Insurance Date Sequence Insurance Name Policy Number Policy Gallagher Covered Member ID Gallagher Member ID Guarantor Name 10/05/2024 1 [facility] Tamera Madeleine [id number] Tamera Madeleine 10/05/2024 1 [facility] Tamera Madeleine [id number] Tamera Madeleine 10/20/2024 1 [place] [employer] Tamera B Madeleine [id number] Tamera Madeleine 10/05/2024 1 [facility] PENDING SALE TO [employer] (MEDICAID HMO) [place] Tamera Madeleine [id number] Tamera Madeleine 12/17/2024 2 [place] [facility] Tamera Madeleine [id number] Tamera Madeleine Notes Date Note Type Note Provider Name and Address Organization Details Recorded Time 2 text/html CoughReported by PatientHPIFor quality, patient reportsproductive cough. For timing, patient reportsworseningbut reportsconstant. For severity, patient reportsmild. For associated symptoms, patient reportsno fever,no chills,no chest pain,no heartburn,no nausea,no vomiting,no edema,no agitation, andno wheezing. Pt c/o cough and congestion and chills x 10 days. Shilpi Funez MD [facility] [place], [address], PA - [facility] 09/06/2022 19:27:21 4 text/html UC Rash/Skin LesionReported by PatientHPIFor quality, patient reportsred,swollen, andnon-healing. For context, patient reportsother exposurebut reportsno new detergent or skin product,no recent change in medication,no exposure to hair dye,no expsoure to new clothes/jewelry,no recent travel,no recent illness,no pets/animals in home, andnot affiliated with chemicals/pesticides. For source of patient information, patient reportsinformation obtained from patientandpatient arrived at urgent care ambulatory(chronic papular rash , itchy involving upper and lower limbs . patient stating she will be following up with her pcp . comes here for time being treatment.). For location, patient reportschest,arms,back,b uttocks,legs, andthighs. For severity, patient reportsmoderate. For duration, patient [id number] months. For alleviating factors, patient reportsnothing gives relief. For associated symptoms, patient reportsno feverandno fatigue. For treatment history, patient reportsprescription topical treatment ___ with improvement. Santiago Cooper NP [address] [place], [address], [place] - [facility] 04/28/2024 16:56:26 4 text/html 63 yo F c/o fever, diarrea, headaches, and sore throat x 4 days. No sick contacts. JEFFREY SOLORZANO MD [address] [place], [id number], [place] - [facility] 06/15/2024 19:23:43 5 text/html ToesReported by [email or web address] yo femalec/o R toenail pain x 2 weeksR foot 2nd toe self clipped her toenails 2 weeks ago No feverNo chillsNo nauseaNo vomitingNo bleedingNo dischargeNo rash tried warm soaks ROS as noted in the HPI Reginald Yap DO [address] [place], [id number], [place] - [facility] 10/05/2024 12:29:08 5 text/html 63 y F c/o cough,congested,some headaches,sore throat earache (right) and fever for 3 days now. Hx of asthma. She needs her Albuterol refilled. JEFFREY SOLORZANO MD [address] [place] [address] [place], [id number], [place] - [facility] 10/20/2024 11:00:56 OBGyn Episode No OBEpisode recorded.
--- OUTSIDE RECORDS SUMMARY | 2025-08-06 07:36 | XMS_ITS | Clinical Summary ---
Author Organization [facility] Address [address] [place] [id number] Care Team Providers Care Media Marketing Director Name Role Phone Kyle-Deana Miller MD Primary Care Provider Allergies Active Allergy Reactions Criticality Noted Date Comments Penicillins 03/22/2016 Yeast infection Medications Medication Sig Dispensed Refills Start Date End Date Status traZODone (DESYREL) 100 MG tablet trazodone 100 mg tablet 0 07/26/2019 Active sertraline (ZOLOFT) 100 MG tablet sertraline 100 mg tablet 0 03/25/2019 Active Psyllium 55.46 % POWD Take 1 applicator by mouth. 0 09/06/2018 Active oyster shell calcium (OYSCO 500) 500 MG tablet Oysco-500 500 mg calcium (1,250 mg) tablet 0 Active naproxen sodium (ANAPROX) 550 MG tablet 0 06/08/2019 Active Misc Natural Products (GLUCOSAMINE CHOND COMPLEX/MSM) TABS Take 1 tablet by mouth. 0 09/06/2018 Active methocarbamol (ROBAXIN) 750 MG tablet methocarbamol 750 mg tablet 0 Active gabapentin (NEURONTIN) 300 MG capsule gabapentin 300 mg capsule 0 Active PREMARIN vaginal cream 1 08/26/2019 Active EPINEPHrine 0.3 MG/0.3ML SOAJ epinephrine 0.3 mg/0.3 mL injection, auto-injector 0 Active cloNIDine (CATAPRES) tablet 0.1 mg Take 0.1 mg by mouth 2 (two) times a day. 0 08/25/2019 Active clindamycin (CLINDAGEL) 1 % gel clindamycin 1 % topical gel 0 Active KP VITAMIN D3 50 MCG (1999) CAPS Take 1 capsule by mouth daily. 0 08/19/2019 Active CALCIUM PO Take 500 mg by mouth. 0 08/19/2019 Act nhan buPROPion (WELLBUTRIN XL) 300 MG 24 hr tablet Take 300 mg by mouth every morning. 0 08/15/2019 Active baclofen (LIORESAL) 10 MG tablet 0 08/28/2019 Active B Complex Vitamins (VITAMIN B COMPLEX) TABS 0 06/04/2019 Active atorvastatin (LIPITOR) tablet 20 mg 0 08/27/2019 Active albuterol (PROVENTIL HFA;VENTOLIN HFA) 108 (90 Base) MCG/ACT inhaler Inhale 2 puffs into the lungs. 0 10/30/2017 Active acyclovir (ZOVIRAX) 400 MG tablet 0 08/01/2019 Active Active Problems No known active problems Family History Medical History Relation Name Comments Arthritis Father Diabetes Father Hypertension Father Scoliosis Father Arthritis Mother Clotting disorder Mother Relation Name Status Comments Father high cholestero l Mother high cholestero l Sister high cholestero l Social History Tobacco Use Types Packs/Day Years Used Date Smoking Tobacco: Never Smokeless Tobacco: Never Alcohol Use Standard Drinks/Week Comments No 0 (1 standard drink = 0.6 oz pur e alcohol) Sex and Gender Information Value Date Recorded Sex Assigned at Not on file Gender Identity Not on file Sexual Orientation Not on file Job Start Date Occupation Industry Not on file Not on file Not on file Last Filed Vital Signs Vital Sign Reading Time Taken Comments Blood Pressure - - Pulse - - Temperature - - Respiratory Rate - - Oxygen Saturation - - Inhaled Oxygen Concentration - - Weight 77.1 kg (170 lb) 09/02/2019 2:40 PM EST Height 170.2 cm (5' 7 ) 09/02/2019 2:40 PM EST Body Mass Index 26.63 09/02/2019 2:40 PM EST Plan of Treatment Health Maintenance Due Date Last Done Comments Hepatitis C Screening 1959 COVID-19 Vaccine (#1) 04/24/1960 Depression Screening 1971 BMI Counseling 1977 Preventative Health Evaluation 1977 Cervical Cancer Screening (P ap Smear) 1980 Colon Cancer Screening (Colonoscopy) 2004 Breast Cancer Screening (Mammogram) 2009 Shingrix-Zoster Vaccine (1 of 2) 2009 DTap / Tdap / Td (2 - Td or Tdap) 06/04/2023 013 Fall Risk Assessment 2024 Osteoporosis Screening (DEXA Scan) 2024 Pneumococcal Vaccine (2 of 2 - PCV) 2024 06/04/2013 Influenza Vaccine (#1) 2025 05/22/2016 RSV Adult > 60+ Yrs or Pregn ant (1 - 1-dose 75+ series) 2034 Pneumococcal Vaccine Aged Out 06/04/2013 No long er eligible based on patient's age to complete this topic Hepatitis B Vaccines Aged Out No long er eligible based on patient's age to complete this topic RSV Ped < 20 months Aged Out No longe r eligible based on patient's age to complete this topic Care Teams Media Marketing Director Relationship Specialty Start Date End Date [place]-Deana Miller MD PCP - General Internal Medicine 04/11/19
--- OUTSIDE RECORDS SUMMARY | 2025-08-06 07:36 | XMS_ITS | Continuity of Care Document ---
Author Organization [place] - [facility], [facility] Address [address] [place] [address] Care Team Providers Care Dredge Captain Name Role Phone LORENZO BRUNO Primary Care Provider [phone] Assessment Encounter Date Assessment Date Assessment LastModified by Organization Details LastModified Time 07/11/2025 07/11/2025 Tamera Salvador is a 64-year-old female with a history of allergies and sinus infections. She has been receiving monthly allergy injections for the past two years and reports significant improvement in her symptoms. She denies recent sinus pain, pressure, or drainage and has been using Bhavya D and Flonase as needed. Based on the physical examination findings, there are no signs of sinus drainage, polyps, or frontal infection. Given her improvement and the absence of persistent symptoms, it is reasonable to discontinue the allergy injections and manage her symptoms with Flonase and Bhavya as needed. If she experiences persistent forehead pain or other concerning symptoms, imaging may be reconsidered. FOLLOW-UP: Tamera will leave follow-up open and contact the clinic if her symptoms worsen or persist. [email or web address] Not available 07/11/2025 09:08:51 Plan of Treatment Reminders Order Date Submit Date Provider Last Modified By Organization Details Last Modified Time Details Appointments None record ed. Lab None record ed. Referral None record ed. Procedures None record ed. Surgeries None record ed. Imaging None record ed. Medication Orders None record ed. Patient TargetsNo targets recorded. Patient Instructions Encounter Date Encounter Id Patient Instructions Last Modified By Organization Details Last Modified Time 07/11/2025 [id number] - Discontinue allergy injections - Use Flonase and Bhavya as needed - Contact the clinic if symptoms worsen or persist pieter Not available 07/11/2025 09:08:51 Please note: Parts of this encounter note have been generated by AI based on audio conversation. Patient consent was required prior to utilizing this technology. Content review was required prior to finalizing the note. pieter Not available 07/11/2025 09:08:51 Reason for Referral None Reported. Problems Name Problem SNOMED Code Status Onset Date Resolution Date Notes Provider Name and Address Organization Details Recorded Time Chronic rhinitis 05657698 Active 2017 Chronic rhinitis; Note: Date Diagnosed : 07/30/2018 12:02 PM (J31.0) Not Available [facility] 4 02:39:11 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 94890490 Active 2018 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, unspecifi ed lacrimal gland; Note: Date Diagnosed : 10/08/2018 12:03 PM (H04.229) Not Available [facility] 4 02:39:14 Bilateral earache 738481333 Active 2021 Otalgia, bilateral ; Note: Date Diagnosed : 08/31/2022 2:27 PM (H92.03) Otalgia , bilateral ; Note: Date Diagnosed : 07/30/2018 12:03 PM (H92.03) ; Start Date : 8 Not Available [facility] 4 02:39:28 Acute maxillary sinusitis 64506129 Active 2021 Acute maxillary sinusitis , unspecifi ed; Note: Date Diagnosed : 08/31/2022 2:33 PM (J01.00) Not Available [facility] 4 02:39:22 Bilateral temporoma ndibular joint pain [id number] 067109 Active 2021 Arthralgi a of bilateral temporoma ndibular joint; Note: Date Diagnosed : 08/31/2022 2:27 PM (M26.623) Not Available [facility] 4 02:39:12 Allergic rhinitis 98556870 Active 2022 Allergic rhinitis: Due to other allergen; Note: Date Diagnosed : 3 1:59 PM (477.8) Note: Date Diagnosed : 3 1:59 PM (477.8) Allergi c rhinitis: Due to other allergen; Note: Date Diagnosed : 3 1:08 PM (477.8) Note: Date Diagnosed : 3 1:08 PM (477.8) ; Start Date : 3 Allergi c rhinitis: Due to other allergen; Note: Date Diagnosed : 06/08/2023 10:43 AM (477.8) Note: Date Diagnosed : 06/08/2023 10:43 AM (477.8) ; Start Date : 3 Allergi c rhinitis: Due to other allergen; Note: Date Diagnosed : 05/03/2023 12:09 PM (477.8) Note: Date Diagnosed : 05/03/2023 12:09 PM (477.8) ; Start Date : 3 Allergi c rhinitis: Due to other allergen; Note: Date Diagnosed : 04/26/2023 5:14 PM (477.8) Note: Date Diagnosed : 04/26/2023 5:14 PM (477.8) ; Start Date : 3 Allergi c rhinitis: Due to other allergen; Note: Date Diagnosed : 02/01/2023 11:49 AM (477.8) Note: Date Diagnosed : 02/01/2023 11:49 AM (477.8) ; Start Date : 3 Allergi c rhinitis: Due to other allergen; Note: Date Diagnosed : 12/13/2022 1:08 PM (477.8) Note: Date Diagnosed : 12/13/2022 1:08 PM (477.8) ; Start Date : 3 Allergi c rhinitis: Due to other allergen; Note: Date Diagnosed : 11/23/2022 2:19 PM (477.8) Note: Date Diagnosed : 11/23/2022 2:19 PM (477.8) ; Start Date : 3 Allergi c rhinitis: Due to other allergen; Note: Date Diagnosed : 10/05/2022 3:13 PM (477.8) Note: Date Diagnosed : 10/05/2022 3:13 PM (477.8) ; Start Date : 3 Allergi c rhinitis: Due to other allergen; Note: Date Diagnosed : 1:08 PM (477.8) Note: Date Diagnosed : 2 1:08 PM (477.8) ; Start Date : 2 Allergi c rhinitis: Due to other allergen; Note: Date Diagnosed : 07/27/2022 5:29 PM (477.8) Note: Date Diagnosed : 07/27/2022 5:29 PM (477.8) ; Start Date : 2 Allergi c rhinitis: Due to other allergen; Note: Date Diagnosed : 9:15 AM (477.8) Note: Date Diagnosed : 9:15 AM (477.8) ; Start Date : 2 Allergi c rhinitis: Due to other allergen; Note: Date Diagnosed : 3:06 PM (477.8) Note: Date Diagnosed : 3:06 PM (477.8) ; Start Date : 2 Allergi c rhinitis: Due to other allergen; Note: Date Diagnosed : 06/23/2022 9:10 AM (477.8) Note: Date Diagnosed : 06/23/2022 9:10 AM (477.8) ; Start Date : 2 Allergi c rhinitis: Due to other allergen; Note: Date Diagnosed : 04/13/2022 5:48 PM (477.8) Note: Date Diagnosed : 04/13/2022 5:48 PM (477.8) ; Start Date : 2 Allergi c rhinitis: Due to other allergen; Note: Date Diagnosed : 01/07/2022 12:12 PM (477.8) Note: Date Diagnosed : 01/07/2022 12:12 PM (477.8) ; Start Date : 2 Allergi c rhinitis: Due to other allergen; Note: Date Diagnosed : 12/17/2021 10:50 AM (477.8) Note: Date Diagnosed : 12/17/2021 10:50 AM (477.8) ; Start Date : 2 Allergi c rhinitis: Due to other allergen; Note: Date Diagnosed : 11/09/2021 2:21 PM (477.8) Note: Date Diagnosed : 11/09/2021 2:21 PM (477.8) ; Start Date : 2 Allergi c rhinitis: Due to other allergen; Note: Date Diagnosed : 10/29/2021 12:53 PM (477.8) Note: Date Diagnosed : 10/29/2021 12:53 PM (477.8) ; Start Date : 2 Allergi c rhinitis: Due to other allergen; Note: Date Diagnosed : 1 4:08 PM (477.8) Note: Date Diagnosed : 1 4:08 PM (477.8) ; Start Date : 1 Allergi c rhinitis: Due to other allergen; Note: Date Diagnosed : 1 1:56 PM (477.8) Note: Date Diagnosed : 1 1:56 PM (477.8) ; Start Date : 1 Allergi c rhinitis: Due to other allergen; Note: Date Diagnosed : 1 2:42 PM (477.8) Note: Date Diagnosed : 1 2:42 PM (477.8) ; Start Date : 1 Allergi c rhinitis: Due to other allergen; Note: Date Diagnosed : 1 2:26 PM (477.8) Note: Date Diagnosed : 1 2:26 PM (477.8) ; Start Date : 1 Allergi c rhinitis: Due to other allergen; Note: Date Diagnosed : 06/24/2021 3:07 PM (477. Not Available [facility] 4 01:02:06 Perennial allergic rhinitis 023231132 Active 2023 Eduardo Burks [address] [place] [address], [facility] [place], [address] , [facility] - [facility] 5 17:09:07 Chronic sinusitis 46431056 Active 2023 BRIAN JACKSON MD [address], [place], [address] , [facility] - [facility] [place] 09:10:30 Deviated nasal septum 291481397 Active 2024 BRIAN JACKSON MD [address], [place], [address] , [place] - [facility] 09:09:20 Problem Notes None recorded. Procedures Surgical History Date Name Laterality Status Provider Name and Address Organization Details Recorded Time 07/11/20 25 JMSNasal/Sinus Endoscopy-PRIOR surgical cavities completed BRIAN FERREIRA MD [address], [place], [address], [place] [facility] 07/11/2025 09:09:16 06/25/20 25 Allergy Immunotherapy Injections completed Eduardo Burks [address] [facility], [place], [address], [facility] - [facility] 06/25/2025 17:09:31 05/07/20 25 Allergy Immunotherapy Injections completed JOBY MERCADO RN [address] [facility], [place], [address], [place] [facility] 05/07/2025 17:07:34 04/16/20 25 Allergy Immunotherapy Injections completed GOMEZ DÍAZC, RMA [address] [place] [address], [address], [place] [facility] 04/16/2025 16:59:55 03/05/20 25 Allergy Immunotherapy Injections completed GOMEZ DÍAZC, RMA [address], [place], [address], [place] [facility] 03/05/2025 17:01:03 02/06/20 25 Allergy Immunotherapy Injections completed GOMEZ CANTORZEC, RMA [address], [place], [address], [place] [facility] 02/05/2025 16:58:15 01/02/20 25 Allergy Immunotherapy Injections completed GOMEZ DÍAZC, RMA [address], [place], [address], [place] [facility] 01/01/2025 17:46:59 12/05/19 25 Allergy Immunotherapy Injections completed GOMEZ GOODMAN A [address] [place] [address], [address], [facility] - [facility] 12/04/2024 17:13:39 11/13/19 25 Allergy Immunotherapy Injections completed JOBY MERCADO RN [address], [place], [address], [place] [facility] 11/13/2024 16:55:31 10/02/19 25 Allergy Immunotherapy Injections completed JOBY MERCADO RN [address] [place] [address], [address], [place] [facility] 10/02/2024 17:09:55 09/19/20 24 JMSNasal/Sinus Endoscopy-PRIOR surgical cavities completed BRIAN FERREIRA MD [address] [place] [address], [address], [place] [facility] 09/19/2024 12:20:47 08/14/20 24 Allergy Immunotherapy Injections completed GOMEZ GOODMAN [facility] [address], [address], [facility] - [facility] 08/14/2024 16:56:13 07/24/20 24 Allergy Immunotherapy Injections completed GOMEZ GOODMAN Alex [address] [place] [address], [address], [facility] - [facility] 07/24/2024 17:06:58 06/26/20 24 Allergy Immunotherapy Injections completed JOBY MERCADO RN [address] [place] [address], [address], [place] [facility] 06/26/2024 17:13:16 05/08/20 24 Allergy Immunotherapy Injections completed SILVIA HERNANDEZ [address], [place], [address], [place] [facility] 05/08/2024 17:00:48 06/19/20 24 Allergy Immunotherapy Injections completed SILVIA HERNANDEZ [address] [facility],[address], [address], [place] [facility] 03/13/2024 17:11:42 02/14/20 24 Allergy Immunotherapy Injections completed SILVIA HERNANDEZ [address],[facility] [address], [place], [address], [facility] - [facility] 02/14/2024 17:24:04 functional endoscopic sinus surgery completed BRIAN FERREIRA MD [address] [facility],[address], [address], [facility] - [facility] 09/19/2024 12:17:31 Imaging Results None recorded. Procedure Notes None recorded. Medical Equipment None Reported. Allergies Allergen ID Allergen Name Allergen Category Reaction Reaction Severity Criticality Documentation Date Start Date Code Code System Note Provider Name and Address Organization Details Recorded Time 859935 Product containin g penicilli n (product) medicatio n Not available Not available Not available 07/11/2025 24418 8001 SNOMED Winsome tadeo [facility] 5 08:52:16 081892 cat dander environme nt Not available Not available Not available 07/11/2025 Winsome tadeo [place] - [facility] 5 08:52:22 190162 Canis lupus familiari s extract environme nt Not available Not available Not available 07/11/2025 46279 4 RxNorm Winsome tadeo [facility] 5 08:52:27 518219 house dust allergeni c extract environme nt,medica tion Not available Not available Not available 07/11/2025 67378 9 RxNorm Winsome tadeo [place] - [facility] 5 08:52:33 988256 POLLEN EXTRACTS environme nt,medica tion Not available Not available Not available 07/11/2025 02597 6 RxNorm Winsome tadeo [facility] 5 08:52:39 93664 Penicilli n Not available Not available Not available Not available 02/06/2024 51214 RxNorm BRIAN DU MD [address] [place] [address], [address] [place] [address] - [facility] 12:09:28 Medications Name Sig Start Date Stop Date Status Note LastModified by Organization Details LastModified Time methocarb meera 500 mg tablet 03/14 completed Medicati on ID: [id number] D uration Value: 7 Brand Name: methocar bamol Se nd Method: E-Prescr ibed Sub s Allowed: subs OK Speci al Instruct ion: take 1 tablet by mouth three times a day Medi cationGe nericNam e: methocar bamol Not Available Not Available Not Available clonidine HCl 0.1 mg tablet 07/11 completed Medicati on ID: [id number] D uration Value: 30 Brand Name: clonidin e HCl Send Method: E-Prescr ibed Sub s Allowed: subs OK Medic ationGen ericName : clonidin e HCl Not Available Not Available Not Available gabapenti n 600 mg tablet 07/22 completed Medicati on ID: [id number] D uration Value: 30 Brand Name: gabapent in Send Method: E-Prescr ibed Sub s Allowed: subs OK Speci al Instruct ion: take 1 tablet by mouth three times a day Medi cationGe nericNam e: gabapent in Not Available Not Available Not Available atorvasta tin 20 mg tablet 07/11 completed Medicati on ID: [id number] D uration Value: 30 Brand Name: atorvast atin Sen d Method: E-Prescr ibed Sub s Allowed: subs OK Speci al Instruct ion: take 1 tablet by mouth once daily Me dication GenericN solo: atorvast atin Not Available Not Available Not Available sertralin e 100 mg tablet 2017 active Medicati on ID: [id number] D uration Value: 30 Brand Name: sertrali ne Send Method: E-Prescr ibed Sub s Allowed: subs OK Speci al Instruct ion: take 1 1/2 tablets by mouth once daily Me dication GenericN solo: sertrali ne Not Available Not Available Not Available sumatript an 50 mg tablet 03/14 completed Medicati on ID: [id number] D uration Value: 30 Brand Name: jacky to succinat e Send Method: E-Prescr ibed Sub s Allowed: subs OK Medic ationGen ericName : jacky to succinat e Not Available Not Available Not Available acyclovir 400 mg tablet 03/14 completed Medicati on ID: [id number] D uration Value: 30 Brand Name: acyclovi r Send Method: E-Prescr ibed Sub s Allowed: subs OK Speci al Instruct ion: take 1 tablet by mouth once daily Me dication GenericN solo: acyclovi r Not Available Not Available Not Available Vitamins B Complex capsule 11/02 completed Medicati on ID: [id number] D uration Value: 30 Brand Name: Vitamins B Complex Send Method: E-Prescr ibed Sub s Allowed: subs OK Medic ationGen ericName : Vitamins B Complex Not Available Not Available Not Available tramadol 50 mg tablet 11/02 completed Medicati on ID: [id number] D uration Value: 25 Brand Name: tramadol Send Method: E-Prescr ibed Sub s Allowed: subs OK Speci al Instruct ion: TK 1 TO 2 TS PO Q 6 H Medica tionGene ricName: tramadol Not Available Not Available Not Available clindamyc in 1 % topical gel 08/31 completed Medicati on ID: [id number] D uration Value: 20 Brand Name: clindamy michelle phosphat e Send Method: E-Prescr ibed Sub s Allowed: subs OK Medic ationGen ericName : clindamy michelle phosphat e Not Available Not Available Not Available trazodone 100 mg tablet 2017 active Medicati on ID: [id number] B rand Name: trazodon e Send Method: E-Prescr ibed Sub s Allowed: subs OK Medic ationGen ericName : trazodon e Not Available Not Available Not Available baclofen 10 mg tablet 08/31 completed Medicati on ID: [id number] D uration Value: 60 Brand Name: baclofen Send Method: E-Prescr ibed Sub s Allowed: subs OK Speci al Instruct ion: TK 2 TS PO HS AND 1 T EVERY MORNING Medicati onGeneri cName: baclofen Not Available Not Available Not Available triamcino lone acetonide 0.1 % topical ointment 03/14 completed Medicati on ID: [id number] D uration Value: 25 Brand Name: triamcin olone acetonid e Send Method: E-Prescr ibed Sub s Allowed: subs OK Medic ationGen ericName : triamcin olone acetonid e Not Available Not Available Not Available gabapenti n 300 mg capsule 11/19 completed Medicati on ID: [id number] D uration Value: 30 Reason: () Brand Name: gabapent in Send Method: E-Prescr ibed Sub s Allowed: subs OK Speci al Instruct ion: take 1 capsule by mouth three times a day Medi cationGe nericNam e: gabapent in Not Available Not Available Not Available monteluka st 10 mg tablet 11/05 completed Medicati on ID: [id number] D uration Value: 30 Reason: () Brand Name: monteluk ast Send Method: E-Prescr ibed Sub s Allowed: subs OK Speci al Instruct ion: TAKE 1 TABLET (ORAL) 1 TIME PER DAY FOR 30 DAYS Med icationG enericNa me: monteluk ast Not Available Not Available Not Available epinephri ne 0.3 mg/0.3 mL injection , auto-inje ctor INJECT 1 PEN INTRAMUS CULARLY NEEDED FOR ANAPHYLA XIS 2024 active Not Available Not Available Not Avai lable albuterol sulfate HFA 90 mcg/actua tion aerosol inhaler 07/11 completed Medicati on ID: [id number] D uration Value: 16 Brand Name: albutero l sulfate Send Method: E-Prescr ibed Sub s Allowed: subs OK Speci al Instruct ion: INL 2 PFS ITL Q 4 H PRF COUGH OR WHZ Medi cationGe nericNam e: albutero l sulfate Not Available Not Available Not Available spironola ctone 50 mg tablet 03/14 completed Medicati on ID: [id number] D uration Value: 30 Brand Name: spironol actone S end Method: E-Prescr ibed Sub s Allowed: subs OK Speci al Instruct ion: take 1 tablet by mouth twice a day with food Med icationG enericNa me: spironol actone Not Available Not Available Not Available amoxicill in 875 mg-potass ium clavulana te 125 mg tablet 03/14 completed Medicati on ID: [id number] B rand Name: amoxicil marlene-pot clavulan ate Send Method: E-Prescr ibed Sub s Allowed: subs OK Medic ationGen ericName : amoxicil marlene-pot clavulan ate Not Available Not Available Not Available Oyster Shell Calcium-5 00 500 mg (as carbonate 1,250 mg) tablet 2018 active Medicati on ID: [id number] D uration Value: 30 Brand Name: Oyster Shell Calcium 500 Send Method: E-Prescr ibed Sub s Allowed: subs OK Medic ationGen ericName : Oyster Shell Calcium 500 Not Available Not Available Not Available Premarin 0.625 mg/gram vaginal cream 2017 active Medicati on ID: [id number] D uration Value: 30 Brand Name: Premarin Send Method: E-Prescr ibed Sub s Allowed: subs OK Speci al Instruct ion: INSERT 2 GRAMS VAGINALL Y TWICE A WEEK [facility]: Premarin Not Available Not Available Not Available bupropion HCl XL 300 mg 24 hr tablet, extended release 2017 active Medicati on ID: [id number] D uration Value: 30 Brand Name: bupropio n HCl Send Method: E-Prescr ibed Sub s Allowed: subs OK Speci al Instruct ion: TAKE 1 TABLET BY MOUTH EVERY MORNING. Medicat ionGener icName: bupropio n HCl Not Available Not Available Not Available Fish Oil 340 mg-1,000 mg capsule 2018 active Medicati on ID: [id number] D uration Value: 30 Brand Name: Fish Oil Send Method: E-Prescr ibed Sub s Allowed: subs OK Medic ationGen ericName : Fish Oil Not Available Not Available Not Available Glucosami ne Chondroit Complx Advan 750 mg-100 mg-125 mg-1.65 mg tablet 11/02 completed Medicati on ID: [id number] D uration Value: 30 Brand Name: Glucos Chond Cplx Advanced Send Method: E-Prescr ibed Sub s Allowed: subs OK Speci al Instruct ion: TK 1 T PO D Medica tionGene ricName: Glucos Chond Cplx Advanced Not Available Not Available Not Available cholecalc iferol (vitamin D3) 50 mcg (2,000 unit) capsule 2018 active Medicati on ID: [id number] D uration Value: 30 Brand Name: cholecal ciferol (vitamin D3) Send Method: E-Prescr ibed Sub s Allowed: subs OK Medic ationGen ericName : cholecal ciferol (vitamin D3) Not Available Not Available Not Available dapsone 5 % topical gel 03/14 completed Medicati on ID: [id number] B rand Name: dapsone Send Method: E-Prescr ibed Sub s Allowed: subs OK Speci al Instruct ion: APPLY THIN LAYER EXTERNAL LY TO FACE EVERY DAY IN THE MORNING Medicati onGeneri cName: dapsone Not Available Not Available Not Available Myrbetriq 25 mg tablet,ex tended release 10/15 completed Medicati on ID: [id number] B rand Name: Myrbetri q Send Method: E-Prescr ibed Sub s Allowed: subs OK Medic ationGen ericName : Myrbetri q Not Available Not Available Not Available Konsyl Sugar-Sotero e 6 gram oral powder packet 12/13 completed Medicati on ID: [id number] D uration Value: 30 Reason: () Brand Name: Konsyl Sugar-Fr ee Send Method: E-Prescr ibed Sub s Allowed: subs OK Medic ationGen ericName : Konsyl Sugar-Fr ee Not Available Not Available Not Available ProAir RespiClic k 90 mcg/actua tion breath activated 2017 active Medicati on ID: [id number] B rand Name: ProAir RespiCli ck Send Method: E-Prescr ibed Sub s Allowed: subs OK Medic ationGen ericName : ProAir RespiCli ck Not Available Not Available Not Available Dupixent Syringe active Not Available Not Available Not Available Vitals Date Recorded Body height Body mass index (BMI) Body weight Systolic And Diastolic Provider Name and Address Organization Details Last Updated DateTime 07/11/2025 167.64 cm 27.1 kg/m2 40513.52 g 152/80 mm[Hg] Winsome Jalloh [place] - [facility] 07/11/2025 08:58:06 Social History None recorded. Functional Status None recorded. Mental Status None recorded. Family History Nothing Reported. Medical History Condition Response Allergies/Hayfever Y Heart Problems N Anxiety Y Tonsil Infections N Emphysema N Migraines N Thyroid Problems Y COPD N Depression Y Developmental Delay N Glaucoma N Nasal or Sinus Problems Y Anemia N Immune System Disorder N Anesthesia Complications N Heart Attack ([place]) N Other Skin Condition Y Diabetes N Rhinitis Y Bleeding Disorder N Food Allergy N Hearing Loss N Arthritis Y Hyperlipidemia N Cancer N Stroke N Dementia N Nasal polyps Y Asthma Y Sleep Disorder N High Cholesterol Y GERD/Reflux Y Liver Disease N Headaches N Fibromyalgia N Hypertension N Speech Delay N Kidney Disease N Gynecological HistoryNo gynecological history recorded. Obstetrics History GPAL:G 0 P 0 0 0 0 Past Encounters Encounter ID Performer Location Encounter Start Date Encounter Closed Date Diagnosis/Indication Diagnosis SNOMED-CT Code Diagnosis ICD10 Code Diagnosis IMO Codes Diagnosis Note [id number] GOMEZ GOODMAN [facility] Allergy [address] [place] [phone] 06/25/2025 16:46:58 06/25/2025 17:10:05 Perennial allergic rhinitis 851877900 J30.89 [id number] BRIAN JACKSON MD [facility] [address] [phone] 07/11/2025 08:45:58 07/11/2025 09:10:59 Perennial allergic rhinitis 538560392 J30.89 Chronic sinusitis 380889 00 J32.9 J32.8 94402 Deviated nasal septum 12 7379998 J34.2 [id number] Health Concerns Section Related Observation LastModified by Organization Detai ls LastModified Time None Recorded Concern Status LastModified by Organization Details LastModified Time None Recorded Payers Encounter Date Sequence Insurance Name Policy Number Policy Gallagher Covered Member ID Gallagher Member ID Guarantor Name 07/11/2025 1 [place]MEDICARE [place]PLACEMENT PPO) [id number] Tamera Le Madeleine [id number] Tamera Salvador Notes Date Note Type Note Provider Name and Address Organization Details Recorded Time 07/11/2025 text/html ROS as noted in the HPI Tamera Salvador is a 64-year-old female who presents for follow-up regarding her allergies and sinus issues. She has been receiving monthly allergy injections since April for the past two years. She reports feeling better overall and denies recent sinus pain or pressure. She has a history of sinus infections but has not experienced any recent issues. Tamera uses Bhavya D as needed for allergy symptoms and has also been using Flonase. She has not tried regular Bhavya without the 'D' component. She denies any sinus drainage or polyps. Tamera was previously advised to obtain a scan during her last visit in September, but she did not proceed due to insurance issues and resolution of symptoms. She reports very intermittent forehead pain that resolves on its own and does not persist. BRIAN FERREIRA MD [address] [place] [address], [phone], [place] - [facility] 07/11/2025 09:10:50 OBGyn Episode No OBEpisode recorded.
--- OUTSIDE RECORDS SUMMARY | 2025-08-06 07:36 | XMS_ITS | Data Portability ---
Author Organization [place] - [facility], Allergy Address [address] [address] Care Team Providers Care Cab Starter Name Role Phone IRINALORENZO WEIR Primary Care Provider [phone] Assessment Encounter Date Assessment Date Assessment LastModified by Organization Details LastModified Time 03/05/2025 03/05/2025 Visit With: Rochelle Hayes Use of Antihistamines : Yes If yes: Vial Test Change in medications: No If yes Increase in asthma symptoms If yes, inhaler use: Reaction to last injections: No If yes: Allergy Symptoms: Other: Missed: Dose Aware of Vial Test Aware: Notes: [email or web address] Not available 03/05/2025 17:01:10 04/16/2025 04/16/2025 Visit With: SILVIA Lui Use of Antihistamines : No If yes: Vial Test Change in medications: No If yes Increase in asthma symptoms If yes, inhaler use: Reaction to last injections: No If yes: Allergy Symptoms: Other: Missed: Dose Aware of Vial Test Yes Aware: Notes: [email or web address] Not available 04/16/2025 17:00:10 05/07/2025 05/07/2025 Visit With: Joby Mercado RN Use of Antihistamines : No If yes: Vial Test Yes Change in medications: Yes If yes dupixent Increase in asthma symptoms No If yes, inhaler use: Reaction to last injections: No If yes: Allergy Symptoms: Other: Missed: Dose Aware of Vial Test Aware: Notes: [email or web address] Not available 05/07/2025 17:07:49 06/25/2025 06/25/2025 Visit With: Eduardo Burks [place] Use of Antihistamines : No If yes: Vial Test Change in medications: No If yes Increase in asthma symptoms No If yes, inhaler use: Reaction to last injections: No If yes: Allergy Symptoms: Other: Missed: 4 or more weeks Dose Decreased Aware of Vial Test Aware: Notes: [email or web address] Not available 06/25/2025 17:09:49 07/11/2025 07/11/2025 Tamera Salvador is a 64-year-old [...] clinic if her symptoms worsen or persist. 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, unspecifi ed lacrimal gland; Note: Date Diagnosed : 10/08/2018 12:03 PM (H04.229) Not Available [facility] 4 02:39:14 Bilateral earache 996574464 Active 2021 Otalgia, bilateral ; Note: Date Diagnosed : 08/31/2022 2:27 PM (H92.03) Otalgia , bilateral ; Note: Date Diagnosed : 07/30/2018 12:03 PM (H92.03) ; Start Date : 8 Not Available [facility] 4 02:39:28 Acute maxillary sinusitis 04262821 Active 2021 Acute maxillary sinusitis , unspecifi ed; Note: Date Diagnosed : 08/31/2022 2:33 PM (J01.00) Not Available [facility] 4 02:39:22 Bilateral temporoma ndibular joint pain [id number] 041663 Active 2021 Arthralgi a of bilateral temporoma ndibular joint; Note: Date Diagnosed : 08/31/2022 2:27 PM (M26.623) Not Available [facility] 4 02:39:12 Allergic rhinitis 22075325 Active 2022 Allergic rhinitis: Due to other allergen; Note: Date Diagnosed : 3 1:59 PM (477.8) Note: Date Diagnosed : 3 1:59 PM (477.8) Allergi c rhinitis: Due to other allergen; Note: Date Diagnosed : 3 1:08 PM (477.8) Note: Date Diagnosed : 3 1:08 PM (477.8) ; Start Date : Allergi c rhinitis: Due to other allergen; [...] 1:08 PM (477.8) Note: Date Diagnosed : 1:08 PM (477.8) ; Start Date : 2 Allergi c rhinitis: Due to other allergen; Note: Date Diagnosed : 07/27/2022 5:29 PM (477.8) Note: Date Diagnosed : 07/27/2022 5:29 PM (477.8) ; Start Date : 2 Allergi c rhinitis: Due to other allergen; Note: Date Diagnosed : 2 9:15 AM (477.8) Note: Date Diagnosed : 2 9:15 AM (477.8) ; Start Date : 2 Allergi c rhinitis: Due to other allergen; Note: Date Diagnosed : 2 3:06 PM (477.8) Note: Date Diagnosed : 2 3:06 PM (477.8) ; Start Date : [...] : 06/24/2021 3:07 PM (477. Not Available [facility] 4 01:02:06 Perennial allergic rhinitis 545272534 Active 2023 Eduardo Burks 100 [facility],[place] [address], [place], [address] , [facility] 5 17:09:07 Chronic sinusitis 82996939 Active 2023 BRIAN JACKSON MD 100 [facility],[place] [address], [place], [phone] , [facility] 5 09:10:30 Deviated nasal septum 795902536 Active 2024 BRIAN JACKSON MD 100 [facility],[place] [address], [place], [phone] , [facility] - [facility] 5 09:09:20 Problem Notes None recorded. Procedures Surgical History Date Name Laterality Status Provider Name and Address Organization Details Recorded Time 07/11/20 25 JMSNasal/Sinus Endoscopy-PRIOR surgical cavities completed BRIAN FERREIRA MD [address], [place], [address], [facility] - [facility] 07/11/2025 09:09:16 06/25/20 25 Allergy Immunotherapy Injections completed Eduardo Burks [address], [place], [address], [facility] - [facility] 06/25/2025 17:09:31 05/07/20 25 Allergy Immunotherapy Injections completed JOBY MERCADO RN [address] [place] [address], [phone], [facility] - [facility] 05/07/2025 17:07:34 04/16/20 25 Allergy Immunotherapy Injections completed GOMEZ CANTORZEC, RMA [address] [place] [address], [phone], [facility] - [facility] 04/16/2025 16:59:55 03/05/20 25 Allergy Immunotherapy Injections completed GOMEZ SAKSHIZEC, RMA [address] [place] [address], [phone], [facility] - [facility] 03/05/2025 17:01:03 02/06/20 25 Allergy Immunotherapy Injections completed GOMEZ KORZEC, RMA [address] [place] [address], [phone], [facility] - [facility] 02/05/2025 16:58:15 01/02/20 25 Allergy Immunotherapy Injections completed GOMEZ KORZEC, RMA [address], [place], [address], [facility] - [facility] 01/01/2025 17:46:59 12/05/19 25 Allergy Immunotherapy Injections completed GOMEZ KORZEC, RMA [address], [place], [address], [facility] - [facility] 12/04/2024 17:13:39 11/13/19 25 Allergy Immunotherapy Injections completed JOBY MERCADO RN [address], [place], [address], [place] [facility] 11/13/2024 16:55:31 10/02/19 25 Allergy Immunotherapy Injections completed JOBY MERCADO RN [address] [facility],[address] [place] [address], [phone], [place] [facility] 10/02/2024 17:09:55 09/19/20 24 JMSNasal/Sinus Endoscopy-PRIOR surgical cavities completed BRIAN FERREIRA MD [address], [place], [address], [place] [facility] 09/19/2024 12:20:47 08/14/20 24 Allergy Immunotherapy Injections completed GOMEZ GOODMAN RMAlex [address] [place] [address], [phone], [place] [facility] 08/14/2024 16:56:13 07/24/20 24 Allergy Immunotherapy Injections completed GOMEZ GOODMAN RMAlex [address] [facility] [place],[address] [place] [address], [phone], [place] [facility] [place] 07/24/2024 17:06:58 06/26/20 24 Allergy Immunotherapy Injections completed JOBY MERCADO RN [address] [facility] [place],[address] [place] [address], [phone], [place] [facility] 06/26/2024 17:13:16 05/08/20 24 Allergy Immunotherapy Injections completed SILVIA HERNANDEZ [address] [place] [address], [phone], [place] [facility] 05/08/2024 17:00:48 03/13/20 24 Allergy Immunotherapy Injections completed SILVIA HERNANDEZ [address] [place] [address], [phone], [place] [facility] 03/13/2024 17:11:42 02/14/20 24 Allergy Immunotherapy Injections completed SILVIA HERNANDEZ [address], [place], [address], [place] [facility] 02/14/2024 17:24:04 functional endoscopic sinus surgery completed BRIAN FERREIRA MD [address], [address], [facility] 09/19/2024 12:17:31 Imaging Results None recorded. Procedure Notes None recorded. Medical Equipment None Reported. Allergies Allergen ID Allergen Name Allergen Category Reaction Reaction Severity Criticality Documentation Date Start Date Code Code System Note Provider Name and Address Organization Details Recorded Time 183091 Product containin g penicilli n (product) medicatio n Not available Not available Not available 07/11/2025 32751 8001 SNOMED Winsome tadeo [facility] 5 08:52:16 527109 cat dander environme nt Not available Not available Not available 07/11/2025 Winsome tadeo [facility] 5 08:52:22 616160 Canis lupus familiari s extract environme nt Not available Not available Not available 07/11/2025 57104 4 RxNorm Winsome tadeo [facility] 5 08:52:27 533504 house dust allergeni c extract environme nt,medica tion Not available Not available Not available 07/11/2025 33695 9 RxNorm Winsome tadeo [facility] 5 08:52:33 533818 POLLEN EXTRACTS environme nt,medica tion Not available Not available Not available 07/11/2025 42090 6 RxNorm Winsome tadeo [facility] 5 08:52:39 48496 Penicilli n Not available Not available Not available Not available 02/06/2024 76092 RxNorm BRIAN DU MD [address], [phone], [facility] 4 12:09:28 Medications Name Sig Start Date Stop Date Status Note LastModified by Organization Details LastModified Time methocarb meera 500 mg tablet 03/14 completed Medicati on ID: [id number] D uration Value: 7 Brand Name: methocar bamol Se nd Method: E-Prescr ibed Sub s Allowed: subs OK Speci al Instruct ion: take 1 tablet by mouth three times a day Medi cationGe nericNam e: methocar bamol Not Available Not Available Not Available clonidine HCl 0.1 mg tablet 07/11 completed Medicati on ID: [id number] D uration Value: 30 Brand Name: clonidin e HCl Send Method: E-Prescr ibed Sub s Allowed: subs OK Medic ationGen ericName : clonidin e HCl Not Available Not Available Not Available gabapenti n 600 mg tablet 07/22 completed Medicati on ID: [id number] D uration Value: 30 Brand Name: gabapent in Send Method: E-Prescr ibed Sub s Allowed: subs OK Speci al Instruct ion: take 1 tablet by mouth three times a day Medi cationGe nericNam e: gabapent in Not Available Not Available Not Available atorvasta tin 20 mg tablet 07/11 completed Medicati on ID: [id number] D uration Value: 30 Brand Name: atorvast atin Sen d Method: E-Prescr ibed Sub s Allowed: subs OK Speci al Instruct ion: take 1 tablet by mouth once daily Me dication GenericN solo: atorvast atin Not Available Not Available Not Available sertralin e 100 mg tablet 2017 active Medicati on ID: [id number] D uration Value: 30 Brand Name: sertrali ne Send Method: E-Prescr ibed Sub s Allowed: subs OK Speci al Instruct ion: take 1 1/2 tablets by mouth once daily Me dication GenericN solo: sertrali ne Not Available Not Available Not Available sumatript an 50 mg tablet 03/14 completed Medicati on ID: [id number] D uration Value: 30 Brand Name: sumatrip to succinat e Send Method: E-Prescr ibed Sub s Allowed: subs OK Medic ationGen ericName : sumatrip to succinat e Not Available Not Available Not Available acyclovir 400 mg tablet 03/14 completed Medicati on ID: [id number] D uration Value: 30 Brand Name: acyclovi r Send Method: E-Prescr ibed Sub s Allowed: subs OK Speci al Instruct ion: take 1 tablet by mouth once daily Me dication GenericN solo: acyclovi r Not Available Not Available Not Available Vitamins B Complex capsule 11/02 completed Medicati on ID: [id number] D uration Value: 30 Brand Name: Vitamins B Complex Send Method: E-Prescr ibed Sub s Allowed: subs OK Medic ationGen ericName : Vitamins B Complex Not Available Not Available Not Available tramadol 50 mg tablet 11/02 completed Medicati on ID: [id number] D uration Value: 25 Brand Name: tramadol Send Method: E-Prescr ibed Sub s Allowed: subs OK Speci al Instruct ion: TK 1 TO 2 TS PO Q 6 H Medica tionGene ricName: tramadol Not Available Not Available Not Available clindamyc in 1 % topical gel 08/31 completed Medicati on ID: [id number] D uration Value: 20 Brand Name: clindamy michelle phosphat e Send Method: E-Prescr ibed Sub s Allowed: subs OK Medic ationGen ericName : clindamy michelle phosphat e Not Available Not Available Not Available trazodone 100 mg tablet 2017 active Medicati on ID: [id number] B rand Name: trazodon e Send Method: E-Prescr ibed Sub s Allowed: subs OK Medic ationGen ericName : trazodon e Not Available Not Available Not Available baclofen 10 mg tablet 08/31 completed Medicati on ID: [id number] D uration Value: 60 Brand Name: baclofen Send Method: E-Prescr ibed Sub s Allowed: subs OK Speci al Instruct ion: TK 2 TS PO HS AND 1 T EVERY MORNING Medicati onGeneri cName: baclofen Not Available Not Available Not Available triamcino lone acetonide 0.1 % topical ointment 03/14 completed Medicati on ID: [id number] D uration Value: 25 Brand Name: triamcin olone acetonid e Send Method: E-Prescr ibed Sub s Allowed: subs OK Medic ationGen ericName : triamcin olone acetonid e Not Available Not Available Not Available gabapenti n 300 mg capsule 11/19 completed Medicati on ID: [id number] D uration Value: 30 Reason: () Brand Name: gabapent in Send Method: E-Prescr ibed Sub s Allowed: subs OK Speci al Instruct ion: take 1 capsule by mouth three times a day Medi cationGe nericNam e: gabapent in Not Available Not Available Not Available mont[address] st 10 mg tablet 11/05 completed Medicati on ID: [id number] D uration Value: 30 Reason: () Brand [...] aerosol inhaler 07/11 completed Medicati on ID: [id number] D uration Value: 16 Brand Name: albutero l sulfate Send Method: E-Prescr ibed Sub s Allowed: subs OK Speci al Instruct ion: INL 2 PFS ITL Q 4 H PRF COUGH OR WHZ Medi cationGe nericNam e: albutero l sulfate Not Available Not Available Not Available spironola ctone 50 mg tablet 03/14 completed Medicati on ID: [id number] D uration Value: 30 Brand Name: spironol actone S end Method: E-Prescr ibed Sub s Allowed: subs OK Speci al Instruct ion: take 1 tablet by mouth twice a day with food Med icationG enericNa me: spironol actone Not Available Not Available Not Available amoxicill in 875 mg-potass ium clavulana te 125 mg tablet 03/14 completed Medicati on ID: [id number] B rand Name: amoxicil marlene-pot clavulan ate Send Method: E-Prescr ibed Sub s Allowed: subs OK Medic ationGen ericName : amoxicil marlene-pot clavulan ate Not Available Not Available Not Available Oyster Shell Calcium-5 00 500 mg (as carbonate 1,250 mg) tablet 2018 active Medicati on ID: [id number] D uration Value: 30 Brand Name: Oyster Shell Calcium 500 Send Method: E-Prescr ibed Sub s Allowed: subs OK Medic ationGen ericName : Oyster Shell Calcium 500 Not Available Not Available Not Available Premarin 0.625 mg/gram vaginal cream 2017 active Medicati on ID: [id number] D uration Value: 30 Brand Name: Premarin Send Method: E-Prescr ibed Sub s Allowed: subs OK Speci al Instruct ion: INSERT 2 GRAMS VAGINALL Y TWICE A WEEK Med icationG enericNa me: Premarin Not Available Not Available Not Available bupropion HCl XL 300 mg 24 hr tablet, extended release 2017 active Medicati on ID: [id number] D uration Value: 30 Brand Name: bupropio n HCl Send Method: E-Prescr ibed Sub s Allowed: subs OK Asyai al Instruct ion: TAKE 1 TABLET BY MOUTH EVERY MORNING. Medicat ionGener icName: bupropio n HCl Not Available Not Available Not Available Fish Oil 340 mg-1,000 mg capsule 2018 active Medicati on ID: [id number] D uration Value: 30 Brand Name: Fish Oil Send Method: E-Prescr ibed Sub s Allowed: subs OK Medic ationGen ericName : Fish Oil Not Available Not Available Not Available Glucosami ne Chondroit Complx Advan 750 mg-100 mg-125 mg-1.65 mg tablet 11/02 completed Medicati on ID: [id number] D uration Value: 30 Brand Name: Glucos Chond Cplx Advanced Send Method: E-Prescr ibed Sub s Allowed: subs OK Speci al Instruct ion: TK 1 T PO D Medica tionGene ricName: Glucos Chond Cplx Advanced Not Available Not Available Not Available cholecalc iferol (vitamin D3) 50 mcg (2,000 unit) capsule 2018 active Medicati on ID: [id number] D uration Value: 30 Brand Name: cholecal ciferol (vitamin D3) Send Method: E-Prescr ibed Sub s Allowed: subs OK Medic ationGen ericName : cholecal ciferol (vitamin D3) Not Available Not Available Not Available dapsone 5 % topical gel 03/14 completed Medicati on ID: [id number] B rand Name: dapsone Send Method: E-Prescr ibed Sub s Allowed: subs OK Speci al Instruct ion: APPLY THIN LAYER EXTERNAL LY TO FACE EVERY DAY IN THE MORNING Medicati onGeneri cName: dapsone Not Available Not Available Not Available Myrbetriq 25 mg tablet,ex tended release 10/15 completed Medicati on ID: [id number] B rand Name: Myrbetri q Send Method: E-Prescr ibed Sub s Allowed: subs OK Medic ationGen ericName : Myrbetri q Not Available Not Available Not Available Konsyl Sugar-Sotero e 6 gram oral powder packet 12/13 completed Medicati on ID: [id number] D uration Value: 30 Reason: () Brand Name: Konsyl Sugar-Fr ee Send Method: E-Prescr ibed Sub s Allowed: subs OK Medic ationGen ericName : Konsyl Sugar-Fr ee Not Available Not Available Not Available ProAir RespiClic k 90 mcg/actua tion breath activated 2017 active Medicati on ID: [id number] B rand Name: ProAir RespiCli ck Send [...] Updated DateTime 07/11/2025 167.64 cm 27.1 kg/m2 35123.52 g 152/80 mm[Hg] Winsome Jalloh [place] - [facility] 07/11/2025 08:58:06 Social History None recorded. Functional Status None recorded. Mental Status None recorded. Family History Nothing Reported. Medical History Condition Response Allergies/Hayfever Y Heart Problems N Anxiety Y Tonsil Infections N Emphysema N Migraines N Thyroid Problems Y Depression Y COPD N Developmental Delay N Glaucoma N Nasal or Sinus Problems Y Anemia N Immune System Disorder N Anesthesia Complications N Heart Attack (TN) N Other Skin Condition Y Diabetes N [...] ICD10 Code Diagnosis IMO Codes Diagnosis Note [id number] ROCHELLE FREDDY [facility] Allergy [address] [place] [address],[address] [place] [address] 02/14/2024 16:55:15 02/14/2024 17:42:53 Perennial allergic rhinitis [id number] J30.89 [id number] ROCHELLE FREDDY [facility] Allergy [address] [place] [address],[address] [place] [address] 03/13/2024 16:47:34 03/14/2024 12:11:32 Perennial allergic rhinitis 002122261 J30.89 [id number] ROCHELLE HAYES [facility] Allergy [address] [place] [address],[address] [place] [address] 05/08/2024 16:47:07 05/08/2024 17:29:33 Perennial allergic rhinitis [id number] J30.89 [id number] 100 [facility],[address] [place] [address] 06/26/2024 17:12:15 06/26/2024 17:14:30 Perennial allergic rhinitis 525690573 J30.89 15343 GOMEZ ARJUNCOX BRANSON Allergy [address] [place] [address],[address] [place] [address] 07/24/2024 16:50:18 07/24/2024 17:07:31 Perennial allergic rhinitis 786945546 J30.89 [id number] JOBY MERCADO RN Allergy [address] [place] [address],[address] [place] [address] 08/14/2024 16:50:34 08/14/2024 16:57:02 Perennial allergic rhinitis 105045017 J30.89 [id number] BRIAN JACKSON MD [facility] [place] [facility] [address] [facility] [place] [address] 09/19/2024 11:21:00 09/19/2024 16:26:16 Chronic sinusitis 04284558 J32.9 Allergic rhinitis 144928 04 J30.9 [id number] ROCHELLE HAYES, [facility] Allergy [address] [place] [address],[address] [place] [address] 10/02/2024 16:46:18 10/02/2024 17:10:44 Perennial allergic rhinitis [id number] J30.89 [id number] JOBY MERCADO RN Allergy [address] [place] [address], [address] [place] [address] 11/13/2024 16:46:14 11/13/2024 16:56:04 Perennial allergic rhinitis [id number] J30.89 [id number] ROCHELLE HAYES, [facility] Allergy [address] [place] [address], [address] [place] [address] 12/04/2024 17:12:17 12/04/2024 17:14:14 Perennial allergic rhinitis [id number] J30.89 02412 GOMEZ [facility], [facility] Allergy [address] [place] [address], [address] [place] [address] 01/01/2025 16:46:51 01/01/2025 17:47:39 Perennial allergic rhinitis [id number] J30.89 [id number] JOBY MERCADO RN Allergy [address] [place] [address], [address] [place] [address] 02/05/2025 16:46:03 02/05/2025 16:58:33 Perennial allergic rhinitis [id number] J30.89 [id number] ROCHELLE HAYES [facility] Allergy [address] [place] [address],[address] [place] [address] 03/05/2025 16:46:07 03/05/2025 17:01:29 Perennial allergic rhinitis [id number] J30.89 [id number] GOMEZ DÍAZ, [facility] Allergy [address] [place] [address],[address] [place] [address] 04/16/2025 16:48:45 04/16/2025 17:00:26 Perennial allergic rhinitis [id number] J30.89 [id number] JOBY MERCADO RN Allergy 100 [facility] [address] [place] [address] 05/07/2025 16:47:55 05/07/2025 17:08:15 Perennial allergic rhinitis [id number] J30.89 [id number] GOMEZ ARJUNReyes, RMA Allergy 100 [facility] [address] [place] [address] 06/25/2025 16:46:58 06/25/2025 17:10:05 Perennial allergic rhinitis [id number] J30.89 [id number] BRIAN JACKSON MD [facility] [address] [place] [address] 07/11/2025 08:45:58 07/11/2025 09:10:59 Perennial allergic rhinitis [id number] J30.89 Chronic sinusitis 156685 00 J32.9 J32.8 46602 Deviated nasal septum 12 2774999 J34.2 80194 Health Concerns Section Related Observation LastModified by Organization Detai ls LastModified Time None Recorded Concern Status LastModified by Organization Details LastModified Time None Recorded Advance Directives Directive None Recorded Payers Insurance Date Sequence Insurance Name Policy Number Policy Gallagher Covered Member ID Gallagher Member ID Guarantor Name 07/04/2024 1 [place] [id number] Dilan Ramos [id number] Tamera B Madeleine 07/03/2025 1 [place] [id number] Dilan Ramos [id number] Tamera B Madeleine 07/03/2025 1 [place] [id number] Tamera Madeleine [id number] Tamera B Madeleine 08/14/2024 1 *SELF PAY* Jose Eduardo Le Madeleine 11/20/2024 1 [facility] - HEALTH NET PLAN (MEDICAID HMO) [id number] Dilan Ramos [id number] Tamera B Madeleine 06/09/2024 PAYMENT PLAN Tamera Salvador 12/10/2024 1 *SELF PAY* Jose Eduardo Salvador 07/03/2025 2 [employer] BLUE SHIELD [id number] Tamera Salvador [id number] Tamera Salvador 07/11/2025 1 [place] (MEDICARE REPLACEMENT PPO) [id number] Tamera Salvador [id number] Tamera Salvador 07/03/2025 2 MEDICARE [place]: [facility] SERVICES Tamera Salvador [id number] Tamera Salvador Notes Date Note Type Note [...] and does not persist. BRIAN FERREIRA MD [address] [place] [address], [id number], [facility] 07/11/2025 09:10:50 OBGyn Episode No OBEpisode recorded.
--- OUTSIDE RECORDS SUMMARY | 2025-08-06 07:36 | XMS_ITS | Clinical Summary ---
Author Organization [facility] [address] [facility] lding Address [address] [place] [address] Phone Care Team Providers Care Supervisor [employer] Name Role Phone Cayla Sullivan MD Primary Care Provider Allergies Active Allergy Reactions Criticality Noted Date Comments Cat Dander 11/14/2022 Dog Dander 11/14/2022 House Dust 11/28/2022 Penicillins 03/22/2016 Yeast infection Pollen Extracts 12/01/2022 Medications nabumetone (RELAFEN) 750 mg tablet Take 1 tablet (750 mg total) by mouth 2 (two) times a day if needed. Active albuterol HFA (ProAir HFA) 90 mcg/actuation inhaler Inhale 2 Puffs into the lungs 4 times daily as needed for Cough or Wheezing. 018 Active cholecalcifer ol (VITAMIN D-3) 50 mcg (2,000 unit) capsule Take 1 capsule (2,000 Units total) by mouth 1 (one) time each day. 019 Active EPINEPHrine (EPIPEN) 0.3 mg/0.3 mL injection INJECT 1 PEN INTRAMUSCULARLY NEEDED FOR ANAPHYLAXIS 025 Active conjugated estrogens (Premarin) vaginal cream 018 Active fluoride, sodium, 1.1 % paste BRUSH YOUR TEETH 2 TIMES A DAY USING TOOTHPASTE Active traMADoL (ULTRAM) 50 mg tablet TAKE 1 TABLET ORAL FOUR TIMES A DAY NEEDED FOR 28 DAYS 025 Active cloNIDine (CATAPRES) 0.1 mg tablet 018 Active mupirocin (BACTROBAN) 2 % ointment APPLY TO LESIONS TWICE A DAY NEEDED UNTIL HEALED 025 Active calcium carbonate (OS-JANETTE) 1,250 mg (500 mg elemental calcium) tablet TAKE 1 TABLET BY MOUTH EVERY DAY 90 tablet 1 025 Active sertraline (ZOLOFT) 100 mg tabletIndicat ions:Major depressive disorder, recurrent, moderate (CMS/HCC V24, CMS/HCC V28) TAKE 1 TABLET BY MOUTH TWICE A DAY 180 tablet 1 Active estradioL (ESTRACE) 0.01 % (0.1 mg/gram) vaginal cream Please use 0.5g (a pea-sized amount) on your finger and place inside the vagina for 2 weeks at night, and then decrease to twice a week at night (Mondays and ) 42.5 g 3 025 Active Dupixent Pen 300 mg/2 mL pen Inject 2 mL (300 mg total) under the skin every 14 (fourteen) days. 025 Active buPROPion XL (WELLBUTRIN XL) 300 mg 24 hr tablet Take 1 tablet (300 mg total) by mouth 1 (one) time each day in the morning. Dose increase. Do not crush, chew, or split. 30 each 2 025 2024 Active traZODone (DESYREL) 100 mg tablet TAKE 2 TABLETS BY MOUTH AT BEDTIME 180 tablet 1 025 Active famotidine (PEPCID) 20 mg tablet Take 1 tablet (20 mg total) by mouth 2 (two) times a day. 180 each 3 025 2025 Active fluticasone propionate (FLONASE) 50 mcg/actuation nasal sprayIndicati ons:Gastro-es ophageal reflux disease with esophagitis, without bleeding INSTILL 1 SPRAY INTO EACH NOSTRIL 1 TIME PER DAY. SHAKE GENTLY. AFTER USE, CLEAN TIP AND REPLACE CAP 48 mL 025 Active famotidine (PEPCID) 20 mg tablet TAKE 1 TABLET BY MOUTH 2 TIMES DAILY NEEDED FOR HEARTBURN. 2024 Discontinued(R eorder) traZODone (DESYREL) 100 mg tablet TAKE 2 TABLETS BY MOUTH AT BEDTIME 180 tablet 1 025 2024 Discontinued fluticasone propionate (FLONASE) 50 mcg/actuation nasal sprayIndicati ons:Gastro-es ophageal reflux disease with esophagitis, without bleeding Administer 1 spray into each nostril 1 (one) time each day. Shake gently. Before first use, prime pump. After use, clean tip and replace cap. 48 g 1 025 2024 Discontinued Active Problems Problem Noted Date Diagnosed Date Chronic sinusitis 09/19/2024 Atopic dermatitis 04/28/2024 Perennial allergic rhinitis 08/11/2023 Overview (03/06/2025): Allergic rhinitis: Due to other allergen; Note: Date Diagnosed: 08/11/2023 1:59 PM (477.8) Note: Date Diagnosed: 08/11/2023 1:59 PM (477.8) Allergic rhinitis: Due to other allergen; Note: Date Diagnosed: 07/11/2023 1:08 PM (477.8) Note: Date Diagnosed: 07/11/2023 1:08 PM (477.8) ; Start Date : 07/11/2023 Allergic rhinitis: Due to other allergen; Note: Date Diagnosed: 06/08/2023 10:43 AM (477.8) Note: Date Diagnosed: 06/08/2023 10:43 AM (477.8) ; Start Date : 06/08/2023 Allergic rhinitis: Due to other allergen; Note: Date Diagnosed: 05/03/2023 12:09 PM (477.8) Note: Date Diagnosed: 05/03/2023 12:09 PM (477.8) ; Start Date : 05/03/2023 Allergic rhinitis: Due to other allergen; Note: Date Diagnosed: 04/26/2023 5:14 PM (477.8) Note: Date Diagnosed: 04/26/2023 5:14 PM (477.8) ; Start Date : 04/26/2023 Allergic rhinitis: Due to other allergen; Note: Date Diagnosed: 02/01/2023 11:49 AM (477.8) Note: Date Diagnosed: 02/01/2023 11:49 AM (477.8) ; Start Date : 02/01/2023 Allergic rhinitis: Due to other allergen; Note: Date Diagnosed: 12/13/2022 1:08 PM (477.8) Note: Date Diagnosed: 12/13/2022 1:08 PM (477.8) ; Start Date : 12/13/2022 Allergic rhinitis: Due to other allergen; Note: Date Diagnosed: 11/23/2022 2:19 PM (477.8) Note: Date Diagnosed: 11/23/2022 2:19 PM (477.8) ; Start Date : 11/23/2022 Allergic rhinitis: Due to other allergen; Note: Date Diagnosed: 10/05/2022 3:13 PM (477.8) Note: Date Diagnosed: 10/05/2022 3:13 PM (477.8) ; Start Date : 10/05/2022 Allergic rhinitis: Due to other allergen; Note: Date Diagnosed: 08/11/2022 1:08 PM (477.8) Note: Date Diagnosed: 08/11/2022 1:08 PM (477.8) ; Start Date : 08/11/2022 Allergic rhinitis: Due to other allergen; Note: Date Diagnosed: 07/27/2022 5:29 PM (477.8) Note: Date Diagnosed: 07/27/2022 5:29 PM (477.8) ; Start Date : 07/27/2022 Allergic rhinitis: Due to other allergen; Note: Date Diagnosed: 07/19/2022 9:15 AM (477.8) Note: Date Diagnosed: 07/19/2022 9:15 AM (477.8) ; Start Date : 07/19/2022 Allergic rhinitis: Due to other allergen; Note: Date Diagnosed: 07/06/2022 3:06 PM (477.8) Note: Date Diagnosed: 07/06/2022 3:06 PM (477.8) ; Start Date : 07/06/2022 Allergic rhinitis: Due to other allergen; Note: Date Diagnosed: 06/23/2022 9:10 AM (477.8) Note: Date Diagnosed: 06/23/2022 9:10 AM (477.8) ; Start Date : 06/23/2022 Allergic rhinitis: Due to other allergen; Note: Date Diagnosed: 04/13/2022 5:48 PM (477.8) Note: Date Diagnosed: 04/13/2022 5:48 PM (477.8) ; Start Date : 04/13/2022 Allergic rhinitis: Due to other allergen; Note: Date Diagnosed: 01/07/2022 12:12 PM (477.8) Note: Date Diagnosed: 01/07/2022 12:12 PM (477.8) ; Start Date : 01/07/2022 Allergic rhinitis: Due to other allergen; Note: Date Diagnosed: 12/17/2021 10:50 AM (477.8) Note: Date Diagnosed: 12/17/2021 10:50 AM (477.8) ; Start Date : 12/17/2021 Allergic rhinitis: Due to other allergen; Note: Date Diagnosed: 11/09/2021 2:21 PM (477.8) Note: Date Diagnosed: 11/09/2021 2:21 PM (477.8) ; Start Date : 11/09/2021 Allergic rhinitis: Due to other allergen; Note: Date Diagnosed: 10/29/2021 12:53 PM (477.8) Note: Date Diagnosed: 10/29/2021 12:53 PM (477.8) ; Start Date : 10/29/2021 Allergic rhinitis: Due to other allergen; Note: Date Diagnosed: 09/09/2021 4:08 PM (477.8) Note: Date Diagnosed: 09/09/2021 4:08 PM (477.8) ; Start Date : 09/09/2021 Allergic rhinitis: Due to other allergen; Note: Date Diagnosed: 08/16/2021 1:56 PM (477.8) Note: Date Diagnosed: 08/16/2021 1:56 PM (477.8) ; Start Date : 08/16/2021 Allergic rhinitis: Due to other allergen; Note: Date Diagnosed: 08/04/2021 2:42 PM (477.8) Note: Date Diagnosed: 08/04/2021 2:42 PM (477.8) ; Start Date : 08/04/2021 Allergic rhinitis: Due to other allergen; Note: Date Diagnosed: 07/14/2021 2:26 PM (477.8) Note: Date Diagnosed: 07/14/2021 2:26 PM (477.8) ; Start Date : 07/14/2021 Allergic rhinitis: Due to other allergen; Note: Date Diagnosed: 06/24/2021 3:07 PM (477. Gastritis 06/29/2023 Hiatal hernia with GERD and esophagitis 06/29/20 23 Overview (08/25/2024): Last Assessment & Plan: 62-year-old woman with long history of heartburn and intermittent dysphagia with to me unclear etiology. She has a small sliding axial hiatal hernia on barium study but I cannot appreciate this on the CT scan she had. Her symptoms to me are unlikely related to the small hiatal hernia seen on the barium study based on 1 the fact that her pain seems to occur with certain twisting movements. These are also not related to what she eats or how much she eats. She does have episodes of vomiting and early satiety but again I am not sure these are necessarily related to her hernia. It is possible that the esophagitis at least is related to chronic reflux despite medication and with this in mind we will plan on getting a manometry study and pH testing to evaluate for possible hiatal hernia repair with Cristina fundoplication. Did discuss this and all her testing in detail as described in the HPI. She will follow-up with me in the office once these tests have been completed. Pulmonary nodules 06/29/2023 Overview (08/25/2024): Last Assessment & Plan: He does also have 2 very small pulmonary nodules at the base of the left lower lobe seen on the upper cuts of the abdominal scan. These will likely need to be followed and when she comes back for her follow-up I will arrange for a formal chest CT. Follow-up does not need to be any sooner than 6 months to a year. Anxiety 09/06/2022 Depressive disorder 09/06/2022 Acute maxillary sinusitis 08/31/2022 Overview (03/06/2025): Acute maxillary sinusitis, unspecified; Note: Date Diagnosed: 08/31/2022 2:33 PM (J01.00) Bilateral temporomandibular joint pain Overview (03/06/2025): Arthralgia of bilateral temporomandibular joint; Note: Date Diagnosed: 08/31/2022 2:27 PM (M26.623) Otalgia of both ears 08/31/2022 Overview (03/06/2025): Otalgia, bilateral; Note: Date Diagnosed: 08/31/2022 2:27 PM (H92.03) Otalgia, bilateral; Note: Date Diagnosed: 07/30/2018 12:03 PM (H92.03) ; Start Date : 07/30/2018 Elevated blood sugar 06/21/2022 Chronic sacroiliac pain 04/30/2021 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 04/30/2021 Colon polyps 08/24/2020 Neck pain, chronic 09/24/2019 Overview (08/25/2024): MRI- herniation c5-6 with left C6 nerve compression Epiphora due to insufficient drainage 10/08/2018 Overview (03/06/2025): Epiphora due to insufficient drainage, unspecified lacrimal gland; Note: Date Diagnosed: 10/08/2018 12:03 PM (H04.229) Shoulder instability, left 07/30/2018 Chronic rhinitis 07/30/2018 Overview (03/06/2025): Chronic rhinitis; Note: Date Diagnosed: 07/30/2018 12:02 PM (J31.0) Asthma 03/30/2016 Hyperlipidemia 03/30/2016 Acne 03/22/2016 Goiter 03/22/2016 Herpes simplex infection of genitourinary system 03/22/2016 Hot flashes 03/22/2016 Insomnia 03/22/2016 Assessment & Plan (12/31/2024 3:54 PM EDT): C/w trazodone Major depressive disorder, r ecurrent episode, moderate ([facility] V24, [facility] V28) 03/22/2016 Migraine without status migrainosus, not intract able 03/22/2016 Encounters Date Type Department Care Team Description 06/26/2025 2:30 PM EDT Office Visit Adult Medicine [place] [address] [place] [address] Mitra Choi PA Difficulty paying attention (Primary Dx); Left sided abdominal pain; Insomnia, unspecified type; Moderate episode of recurrent major depressive disorder ([facility] V24, [facility] V28) 06/19/2025 8:22 AM EDT - 06/19/2025 12:06 PM EDT Emergency [facility] Emergency [address] [place] [address] Osorio Wagner MD Acute left flank pain (Primary Dx) Discharge Disposition: Home or Self Care from Last 3 Months Immunizations Immunization Administration Dates Next Due Hepatitis B (Kntvjwo-C-Hydhg , Recombivax HB-Adult) 19yo and older 01/28/2019,09/11/2018 Influenza Quadravalent, MDCK , 0.5ml, preservative free (Flucelvax) 6mo and older 06/09/2023,06/02/2022 Influenza trivalent, 0.5mL, preservative free (Fluarix; FluLaval; Fluzone) ages 6mo and older (Afluria) 3 years and older 05/18/2024,05/01/2019,05/19/2018,05/09,05/22/2016 Influenza, Unspecified 05/18/2024,2022,05/30/2021,05/09 MMR, measles mumps and rubel la Live (Priorix; M-M-R II) 12mo and older 02/19/2019,09/11/2018 Measles 09/06/2018 Pfizer (ages 12 & older) Biv alent, COVID-19 07/07/2023 Pneumococcal polysaccharide 23 valent (Pneumovax 23) 2yo and older 06/04/2013 RSV, bivalent, protein subun it RSVpreF, 0.5mL, Preservative Free (Arexvy) 50yo and older 08/23/2023 Rubella 09/06/2018 Tdap Tetanus diptheria acell ular pertussis (Boostrix; Adacel) 7yo and older 06/04/2013 Varicella live (Varivax) 12m o and older 09/06/2018 Zoster recombinant (Shingrix ) 19yo and older 03/07/2019 Surgical History Surgery Date Site/Laterality Comments OTHER SURGICAL HISTORY Left PROCEDURE: ARTHROSCOPY PROCEDURE NEC; COMMENT: meniscus repair COLONOSCOPY 07/22/2010 PROCEDURE: HISTORICAL COLONOSCOPY CHOLECYSTECTOMY 1992 PROCEDURE: HISTORICAL CHOLECYSTECTOMY OTHER SURGICAL HISTORY 02/02/2011 Left PROCEDURE: AL CLSD TX CLAVICULAR FRACTURE W/O MANIPULATION OTHER SURGICAL HISTORY 2008 PROCEDURE: AL SLING OPERATION STRESS INCONTINENCE; COMMENT: Taylor Harding BUNIONECTOMY PROCEDURE: BUNION SURGERY, SIMPLE REMOVAL COLONOSCOPY 10/26/2023 - 11/23/2023 rpt 5 years Medical History Medical History Date Comments Asthma DX:Asthma Venereal disease DX:Venereal dis ease Depression DX:Depression Hyperlipidemia 03/30/2016 DX:Hyperlipidemi a Migraine without status migr ainosus, not intractable 03/22/2016 DX:Migraine without status migrainosus, not intractable Major depressive disorder, r ecurrent episode, moderate (CMS/HCC V24, CMS/HCC V28) 03/22/2016 DX:Major depressive disorder , recurrent episode, moderate (HCC) Left shoulder pain 03/22/2016 DX:Left shoul anel pain Insomnia 03/22/2016 DX:Insomnia Herpes simplex infection of genitourinary system 03/22/2016 DX:Herpes simplex infection of genitourinary system Goiter 03/22/2016 DX:Goiter Family history of hemochromatosis 03/22/2016 DX:Family history of hemochromatosis Chronic pain due to trauma 03/22/2016 DX:Ch ronic pain due to trauma Acne 03/22/2016 DX:Acne Right upper quadrant pain DX:Rig ht upper quadrant pain Neck pain, chronic 09/24/2019 DX:Neck pain, chronic; COMMENT: MRI- herniation c5-6 with left C6 nerve compression Colon polyps 08/24/2020 DX:Colon polyps 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 04/30/2021 DX:Degenerative joint diseas e (DJD) of lumbar spine Osteoarthritis of lumbosacra l spine with radiculopathy 04/30/2021 DX:Osteoarthritis of lumbosa cral spine with radiculopathy Chronic sacroiliac pain 04/30/2021 DX:Chron ic sacroiliac pain Esophageal reflux DX:Esophageal reflux Atypical chest pain DX:Atypical chest pain Abdominal lump DX:Abdominal lum p History of stomach ulcers DX:His tory of stomach ulcers Gallstones DX:Gallstones GERD (gastroesophageal reflu x disease) DX:GERD (gastroesophageal re flux disease) Gastro-esophageal reflux dis ease without esophagitis DX:Gastro-esophageal reflux disease without esophagitis Gastritis DX:Gastritis Tubular adenoma of colon DX:Tubu lar adenoma of colon BRCA1 gene mutation negative BRCA2 gene mutation negative Anxiety 09/06/2022 Family History Medical History Relation Name Comments Breast cancer Aunt Other: Other Brother hemochromatosis Coronary artery disease Father Diabetes Father Hypertension Father Lung cancer Maternal Grandmother COPD Mother Heart attack Mother Hyperlipidemia Mother Hypertension Mother Other: hemochromatosis Mother Stroke Mother Breast cancer Mother's side aunt Breast cancer Other cousin age 49 Relation Name Status Comments Aunt Alive Brother Father Maternal Grandmother Mother Mother's side aunt Alive Other cousin age 49 Alive Social History Tobacco Use Types Packs/Day Years Used Date Smoking Tobacco: Former Cigarettes 1.5 21 0 09/25/1973 - 09/25/1994 Smokeless Tobacco: Never Tobacco Cessation:Counseling Given: Not Answered Alcohol Use Standard Drinks/Week Comments No 0 (1 standard drink = 0.6 oz pur e alcohol) Housing Instability Answer Date Recorde d Are you worried that in the next 2 months you may not have stable housing? No 12/26/2024 Food Access & Nutrition Answer Date Rec orded Do you have access to a vari ety of food including fruits and vegetables? Yes 12/26/2024 Health Literacy Answer Date Recorded How often do you need to hav e someone help you when you read instructions, pamphlets, or other written material from your doctor or pharmacy? Never 12/26/2024 Caregiver: How often do you need to have someone help you when you read instructions, pamphlets, or other written material from your doctor or pharmacy? Not on file 12/26/2024 Financial Risk Answer Date Recorded How hard is it for you to pa y for the very basics like food, housing, medical care, and air conditioning / heating? Somewhat hard 12/26/2024 Transportation Answer Date Recorded Has the lack of transportati on kept you from meetings, work, or from getting things needed for daily living? No Has the lack of transportati on kept you from medical appointments or from getting medications? No 12/26/2024 Social Isolation Answer Date Recorded How often do you feel lonely or isolated from th ose around you? Never 12/26/2024 Food Risk Answer Date Recorded Within the past 12 months we worried whether our food would run out before we got money to buy more. Never true 12/26/2024 Within the past 12 months th e food we bought just didn't last and we didn't have money to get more. Never true 12/26/2024 Dependent Care Answer Date Recorded Do you need help finding or paying for care for your loved ones. For example, child development professor or elderly care for an older adult? No 12/26/2024 Education Answer Date Recorded Do you think completing more education or training, like finishing a GED, going to college, or learning a trade, would be helpful for you? N/A 12/26/2024 Employment and Income Answer Date Recor ded During the last four weeks, have you been actively looking for work? No 12/26/2024 Living Situation Answer Date Recorded What is your living situation? Unrecognized valu e 12/26/2024 Comments No Sex and Gender Information Value Date Recorded Sex Assigned at Female 10/08/2024 6:42 AM EST Legal Sex Female 9:57 PM EST Gender Identity Female 10/08/2024 6:42 AM EST Sexual Orientation Straight 10/08/2024 6: 42 AM EST Obstetrics History * This document contains information received from the source organization and may not represent a complete record from that organization. Para Term AB IAB SAB Ectopic Multiple Livin g Live Births 4 1 1 Date Outcome GA Total Labor Labor/2nd/3rd Weight Sex Type Anes PTL Alma A1 A5 Name Clin Term Last Filed Vital Signs Vital Sign Reading Time Taken Comments Blood Pressure 126/80 06/26/2025 2:23 PM EDT Pulse 79 06/26/2025 2:23 PM EDT Temperature 36.6 C (97.9 F) 06/19/2025 10:36 AM EDT Respiratory Rate 18 06/26/2025 2:23 PM EDT Oxygen Saturation 95% 06/19/2025 10:36 AM EDT Inhaled Oxygen Concentration - - Weight 78.9 kg (174 lb) 06/26/2025 2:23 PM EDT Height 167.6 cm (5' 6 ) 06/26/2025 2:23 PM EDT Body Mass Index 28.08 06/26/2025 2:23 PM EDT Plan of Treatment Upcoming Encounters Date Type Department Care Team (Late st Contact Info) Description 08/15/2025 8:30 AM EST Office Visit Adult Medicine - [place] [address] [place] [address] Cayla Sullivan MD [address] [place] [address] 02/20/2026 2:40 PM EDT Office Visit Gastroenterology - [address] [phone] Gill Nolen NP [address] [address] Health Maintenance Due Date Last Done Comments Pneumococcal Vaccine: 50+ Years (2 of 2 - PCV) 06/04/2014 06/04/2013 Hepatitis B Vaccines (3 of 3 - 19+ 3-dose series) 03/25/2019 01/28/2019, 09/11/2018 Zoster Vaccines (2 of 2) 05/02/2019 03/07/2019, 08/25 DTaP,Tdap,and Td Vaccines (2 - Td or Tdap) 06/04/2023 06/04/2013 Falls Risk Assessment 10/08/2025 10/08/2024 Social Influencers of Health Screening 12/26/2025 12/26/2024 Medicare Annual Wellness Visit 12/31/2025 12/31/2024 COVID-19 Vaccine ( season) 2026 07/17/2025, 07/07/2023, 05/23/2022, Additional history exists Cervical Cancer Screening: HPV 08/23/2026 08/23/2021 Breast Cancer Screening 11/06/2026 11/06/19, 06/02/2023, 05/16/2023, Additional history exists Cholesterol Screening (Lipid Panel) 07/26/2029 07/26/2024, 07/26/2024 Colorectal Cancer Screening: Colonoscopy 11/09/2033 11/09/2023 Osteoporosis Screening (Bone Density Screening) 02/13/2035 02/13/2025, 11/23/2020 Hepatitis C Screening Completed 04/15/2016 Varicella Vaccines Aged Out 09/06/2018 No longer eligible based on patient's age to complete this topic MMR Vaccines Aged Out 02/19/2019, 09/11/2018 No lo nger eligible based on patient's age to complete this topic RSV Immunization Adult Patients Completed 08/23/2023 Influenza Vaccine Completed 06/08/2025, , 05/18/2024, Additional history exists Depression Screening Completed 06/20/2025, 07/26/20 HIB Vaccines Aged Out No longer eligi ble based on patient's age to complete this topic HPV Vaccines Aged Out No longer eligi ble based on patient's age to complete this topic Hepatitis A Vaccines Aged Out No long er eligible based on patient's age to complete this topic IPV Vaccines Aged Out No longer eligi ble based on patient's age to complete this topic Meningococcal ACWY Vaccine Aged Out N o longer eligible based on patient's age to complete this topic Meningococcal B Vaccine Aged Out No l onger eligible based on patient's age to complete this topic RSV Immunization Patients Under 20 months Aged Out No longer eligible based on patient's age to complete this topic Procedures Procedure Name Priority Date/Time Associated Diagnosis Comments CT ABDOMEN PELVIS WO CONTRAST STAT 06/19/2025 10:24 AM EDT MCNEAL URINE CULTURE TUBE STAT 06/19/2025 9:50 AM EDT URINALYSIS WITH REFLEX MICROSCOPIC AND CULTURE STAT 06/19/2025 9:50 AM EDT URINALYSIS WITH REFLEX MICROSCOPIC AND CULTURE STAT 06/19/2025 9:50 AM EDT CBC WITH AUTO DIFFERENTIAL STAT 06/19/2025 9:20 AM EDT COMPREHENSIVE METABOLIC PANEL STAT 06/19/2025 9:20 AM EDT CBC AND DIFFERENTIAL STAT 06/19/2025 9:20 AM EDT BD BONE DENSITY DXA AXIAL SKELETON Routine 02/13/2025 1:36 PM EDT Post-menopausal MG MAMMO DIGITAL SCREENING W KULDIP BILAT Routine 11/06/2024 7:35 AM EST Encounter for screening mammogram for breast cancer DEPRESSION SCREENING Routine 07/26/2024 LIPID PANEL Routine 07/26/2024 COLONOSCOPY Routine 11/09/2023 HPV Routine 08/23/2021 HEPATITIS C SCREENING Routine 04/15/2016 from Last 3 Months or Most Recently Relevant to Health Maintenance Results * CT Abdomen Pelvis wo Contrast (06/19/2025 10:24 AM EDT) Anatomical Region Laterality Modality Body Computed Tomogra phy 06/19/2025 10:5 7 AM EDT Impressions 06/19/2025 11:29 AM EDT No nephrolithiasis or hydronephrosis. Fecal stasis. -------- FINAL REPORT -------- Dictated By: Addie Nava Dictated Date: 06/19/2025 10:57 ET Assigned Physician: Addie Nava Reviewed and Electronically Signed By: Addie Nava Signed Date: 06/19/2025 11:29 ET Workstation ID: [id number] Transcribed By: Self Edit Transcribed Date: 06/19/2025 10:59 ET Narrative 06/19/2025 11:29 AM EDT INDICATION: Left flank pain TECHNIQUE: CT scan of the abdomen and pelvis obtained utilizing the renal stone protocol therefore no intravenous or oral contrast was administered. Scanner: [place] LightSpeed 64 slice VCT Dose reduction technique: ASIR (Adaptive statistical iterative reconstruction) and/or AEC (automated exposure control) Dose: total exam DLP 990 mGY per cm COMPARISON: No prior study available for comparison. FINDINGS: Lung bases are clear. Bony structures are within normal limits for the patient's age. Liver, spleen, pancreas and adrenal glands are normal. Status post cholecystectomy. Gallbladder is surgically absent. Right kidney is normal in size and shape without nephrolithiasis or hydronephrosis. Left kidney is normal in size and shape without nephrolithiasis or hydronephrosis. The unopacified stomach and small bowel are grossly unremarkable. Terminal ileum unremarkable. Appendix within normal limits. Significant amount of formed fecal material noted throughout the colon suggestive of constipation. Mild wall thickening along the ascending colon without associated inflammatory changes or pneumatosis. No free air, free fluid or adenopathy. Urinary bladder unremarkable. Procedure Note Addie Nava MD - 06/19/2025 INDICATION: Left flank pain TECHNIQUE: CT scan of the abdomen and pelvis obtained utilizing the renalstone protocol therefore no intravenous or oral contrast wasadministered. Scanner: [place] [employer] 64 slice VCT Dose reduction technique: ASIR (Adaptive statistical iterativereconstruction) and/or AEC (automated exposure control) Dose: total exam DLP 990 mGY per cm COMPARISON: No prior study available for comparison. FINDINGS: Lung bases are clear. Bony structures are within normal limits for the patient's age. Liver, spleen, pancreas and adrenal glands are normal. Status postcholecystectomy. Gallbladder is surgically absent. Right kidney is normal in size and shape without nephrolithiasis orhydronephrosis. Left kidney is normal in size and shape without nephrolithiasis orhydronephrosis. The unopacified stomach and small bowel are grossly unremarkable. Terminalileum unremarkable. Appendix within normal limits. Significant amount offormed fecal material noted throughout the colon suggestive ofconstipation. Mild wall thickening along the ascending colon withoutassociated inflammatory changes or pneumatosis. No free air, free fluid or adenopathy. Urinary bladder unremarkable. IMPRESSION: No nephrolithiasis or hydronephrosis. Fecal stasis. -------- FINAL REPORT -------- Dictated By: Addie Nava Dictated Date: 06/19/2025 10:57 ET Assigned Physician: Addie Nava Reviewed and Electronically Signed By: Addie Nava Signed Date: 06/19/2025 11:29 ET Workstation ID: [id number] Transcribed By: Self Edit Transcribed Date: 06/19/2025 10:59 ET Osorio Wagner MD IM CT PROCEDURES Final Result * Urinalysis with reflex microscopic and culture (06/19/2025 9:50 AM EDT) Specific [place] Urine 1.014 1.003 - 1.030 LAB URINALYSIS - AUTOMATED METHOD 06/19/2025 9:51 AM [facility] pH, Urine 6.5 5.0 - 8.0 pH LAB URINALYSIS - AUTOMATED METHOD 06/19/2025 9:51 AM [facility] Leukocytes, Urine Negative Negative LAB URINALYSIS - AUTOMATED METHOD 06/19/2025 9:51 AM [facility] Nitrite, Urine Negative Negative LAB URINALYSIS - AUTOMATED METHOD 06/19/2025 9:51 AM [facility] Protein, Urine Negative <=Trace mg/dL LAB URINALYSIS - AUTOMATED METHOD 06/19/2025 9:51 AM [facility] Glucose, Urine Negative Negative mg/dL LAB URINALYSIS - AUTOMATED METHOD 06/19/2025 9:51 AM [facility] Ketones, Urine Negative Negative mg/dL LAB URINALYSIS - AUTOMATED METHOD 06/19/2025 9:51 AM [facility] Urobilinogen, Urine 0.2 0.2 - 1.0 mg/dL LAB URINALYSIS - AUTOMATED METHOD 06/19/2025 9:51 AM [facility] Bilirubin, Urine Negative Negative LAB URINALYSIS - AUTOMATED METHOD 06/19/2025 9:51 AM [facility] Blood, Urine Negative Negative LAB URINALYSIS - AUTOMATED METHOD 06/19/2025 9:51 AM EDT [facility] Urine Urine specimen obtained by clean catch procedure / Unknown Non-blood Collection / Unknown 06/19/2025 9:50 AM EDT 06/19/2025 9:50 AM EDT Demario BARR LAB URINE ORDERABLES Final R esult Performing Organization Address City/[facility]/ZIP Co de Phone Number [facility] [address] [place] [address], [place] [phone] * Mcneal urine culture tube (06/19/2025 9:50 AM EDT) Extra Tube Hold for add-ons. 06/21/2025 7:01 AM EDT [facility] Comment:Auto resulted. Urine Urine specimen obtained by clean catch procedure / Unknown Non-blood Collection / Unknown 06/19/2025 9:50 AM EDT 06/21/2025 5:49 AM EDT Demario BARR LAB URINE ORDERABLES Final R esunm [facility] Performing Organization Address City/[facility]/ZIP Co de Phone Number [facility] [address] [place] [address], [place] [phone] * (ABNORMAL) CBC auto differential (06/19/2025 9:20 AM EDT) WBC 6.6 4.8 - 10.8 K/mcL LAB HEMETOLOGY METHOD 06/19/2025 9:39 AM EDT [facility] RBC 3.70(L) 3.80 - 4.80 M/mcL LAB HEMETOLOGY METHOD 06/19/2025 9:39 AM EDT [facility] Hemoglobin 11.4(L) 11.5 - 16.0 g/dL LAB HEMETOLOGY METHOD 06/19/2025 9:39 AM [facility] Hematocrit 33.9(L) 35.0 - 47.0 % LAB HEMETOLOGY METHOD 06/19/2025 9:39 AM [facility] MCV 91.4 79.0 - 98.0 FL LAB HEMETOLOGY METHOD 06/19/2025 9:39 AM [facility] MCH 30.7 27.0 - 32.0 pcg LAB HEMETOLOGY METHOD 06/19/2025 9:39 AM [facility] MCHC 33.6 32.0 - 37.0 g/dL LAB HEMETOLOGY METHOD 06/19/2025 9:39 AM [facility] RDW 12.6 11.0 - 15.0 % LAB HEMETOLOGY METHOD 06/19/2025 9:39 AM [facility] Platelets 180 130 - 400 K/mcL LAB HEMETOLOGY METHOD 06/19/2025 9:39 AM [facility] MPV 9.1 7.0 - 11.0 FL LAB HEMETOLOGY METHOD 06/19/2025 9:39 AM [facility] NRBC 0.0 <1.0 % LAB HEMETOLOGY METHOD 06/19/2025 9:39 AM [facility] NRBC Absolute 0.00 <0.10 K/mcL LAB HEMETOLOGY METHOD 06/19/2025 9:39 AM [facility] Neutrophils Relative 63.9 % LAB HEMETOLOGY METHOD 06/19/2025 9:39 AM [facility] Lymphocytes Relative 25.3 % LAB HEMETOLOGY METHOD 06/19/2025 9:39 AM [facility] Monocytes Relative 8.5 % LAB HEMETOLOGY METHOD 06/19/2025 9:39 AM [facility] Eosinophils Relative 1.7 % LAB HEMETOLOGY METHOD 06/19/2025 9:39 AM EDT [facility] Basophils Relative 0.3 % LAB HEMETOLOGY METHOD 06/19/2025 9:39 AM EDT [facility] Immature Granulocytes Relative 0.3 % LAB HEMETOLOGY METHOD 06/19/2025 9:39 AM EDT [facility] Neutrophils Absolute 4.19 1.50 - 7.00 K/mcL LAB HEMETOLOGY METHOD 06/19/2025 9:39 AM EDT [facility] Lymphocytes Absolute 1.66 1.00 - 5.00 K/mcL LAB HEMETOLOGY METHOD 06/19/2025 9:39 AM EDT [facility] Monocytes Absolute 0.56 0.20 - 1.00 K/mcL LAB HEMETOLOGY METHOD 06/19/2025 9:39 AM EDT [facility] Eosinophils Absolute 0.11 0.00 - 0.50 K/mcL LAB HEMETOLOGY METHOD 06/19/2025 9:39 AM EDT [facility] Basophils Absolute 0.02 0.00 - 0.20 K/mcL LAB HEMETOLOGY METHOD 06/19/2025 9:39 AM EDT [facility] Immature Granulocytes Absolute 0.02 0.00 - 0.03 K/mcL LAB HEMETOLOGY METHOD 06/19/2025 9:39 AM EDT [facility] Blood Venous blood specimen / Unknown Venipuncture / Unknown 06/19/2025 9:20 AM EDT 06/19/2025 9:28 AM EDT us Demario BARR LAB BLOOD ORDERABLES Final R esult [facility] [address] [place] [address], * (ABNORMAL) Comprehensive metabolic panel (06/19/2025 9:20 AM EDT) [facility] Signature Sodium 142 133 - 145 mmol/L LAB CHEMISTRY METHOD 06/19/2025 9:59 AM [facility] Potassium 4.0 3.5 - 5.5 mmol/L LAB CHEMISTRY METHOD 06/19/2025 9:59 AM [facility] Chloride 105 96 - 110 mmol/L LAB CHEMISTRY METHOD 06/19/2025 9:59 AM [facility] CO2 29 21 - 32 mmol/L LAB CHEMISTRY METHOD 06/19/2025 9:59 AM [facility] Anion Gap 8 3 - 11 LAB CHEMISTRY METHOD 06/19/2025 9:59 AM [facility] Glucose 86 70 - 100 mg/dL LAB CHEMISTRY METHOD 06/19/2025 9:59 AM [facility] BUN 15 5 - 25 mg/dL LAB CHEMISTRY METHOD 06/19/2025 9:59 AM [facility] Creatinine 0.67 0.50 - 1.10 mg/dL LAB CHEMISTRY METHOD 06/19/2025 9:59 AM [facility] eGFR 97 >=60 mL/min/1. 73m2 LAB CHEMISTRY METHOD 06/19/2025 9:59 AM [facility] Comment:Calculation based on the Chronic Kidney Disease Epidemiology Collaboration (CKD-EPI) equation refit without adjustment for race. BUN/Creatinine Ratio 22.4 LAB CHEMISTRY METHOD 06/19/2025 9:59 AM [facility] Calcium 8.7 8.5 - 10.5 mg/dL LAB CHEMISTRY METHOD 06/19/2025 9:59 AM [facility] AST (SGOT) 14 10 - 42 unit/L LAB CHEMISTRY METHOD 06/19/2025 9:59 AM [facility] ALT (SGPT) 23 10 - 60 unit/L LAB CHEMISTRY METHOD 06/19/2025 9:59 AM EDT [facility] Alkaline Phosphatase 84 42 - 121 unit/L LAB CHEMISTRY METHOD 06/19/2025 9:59 AM EDT [facility] Total Protein 5.6(L) 6.0 - 8.0 g/dL LAB CHEMISTRY METHOD 06/19/2025 9:59 AM EDT [facility] Albumin 3.3 3.2 - 5.0 g/dL LAB CHEMISTRY METHOD 06/19/2025 9:59 AM EDT [facility] Total Bilirubin 0.4 0.0 - 1.4 mg/dL LAB CHEMISTRY METHOD 06/19/2025 9:59 AM EDT [facility] Blood Venous blood specimen / Unknown Venipuncture / Unknown 06/19/2025 9:20 AM EDT 06/19/2025 9:28 AM EDT us Demario BARR LAB BLOOD ORDERABLES Final R esult [facility] [address] [place] [address], * BD Bone Density DXA Axial Skeleton (02/13/2025 1:36 PM EDT) Anatomical Region Laterality Modality Wrist, Hip, L-spine Bone Densito metry 02/14/2025 8:03 AM EDT Impressions 02/14/2025 8:04 AM EDT 1. Osteopenia. 2. FRAX analysis yields a 10-year probability of major osteoporotic fracture of 14.6% and a 10-year probability of hip fracture of 1.8%. Code 65294 -------- FINAL REPORT -------- Dictated By: Mert Wells Dictated Date: 02/14/2025 08:03 ET Assigned Physician: Mert Wells Reviewed and Electronically Signed By: Mert Wells Signed Date: 02/14/2025 08:04 ET Workstation ID: [id number] Transcribed By: Self Edit Transcribed Date: 02/14/2025 08:03 ET Narrative 02/14/2025 8:04 AM EDT HISTORY: The patient is a 64-year-old postmenopausal female with clinical concern for metabolic bone disease. FINDINGS: Dual energy x-ray absorptiometry of the lumbar spine and femurs is performed. The mean bone mineral density at L1-L4 is 0.991 gm/cm2 which is 84% of that of young normals and 95% of that of age matched controls. This yields a T-score of -1.6 and a Z-score of -0.4 which is diagnostic of osteopenia. The mean bone mineral density of the femurs bilaterally is 0.947 gm/cm2 which is 94% of that of young normals and 106% of that of age matched controls. This yields a T-score of -0.5 and a Z-score of 0.4 and there is therefore no evidence of osteoporosis or osteopenia here. However, the T-score of the right femoral neck is -1.8 and that of the left femoral neck is -2.0 which is diagnostic of osteopenia. Procedure Note Mert Wells MD - 02/14/2025 HISTORY: The patient is a 64-year-old postmenopausal female with clinicalconcern for metabolic bone disease. FINDINGS: Dual energy x-ray absorptiometry of the lumbar spine and femursis performed. The mean bone mineral density at L1-L4 is 0.991 gm/cm2 whichis 84% of that of young normals and 95% of that of age matched controls.This yields a T-score of -1.6 and a Z-score of -0.4 which is diagnostic ofosteopenia. The mean bone mineral density of the femurs bilaterally is 0.947 gm/ia7anyok is 94% of that of young normals and 106% of that of age matchedcontrols. This yields a T-score of -0.5 and a Z-score of 0.4 and there istherefore no evidence of osteoporosis or osteopenia here. However, theT-score of the right femoral neck is -1.8 and that of the left femoralneck is -2.0 which is diagnostic of osteopenia. IMPRESSION: 1. Osteopenia. 2. FRAX analysis yields a 10-year probability of major osteoporoticfracture of 14.6% and a 10-year probability of hip fracture of 1.8%. Code 52485 -------- FINAL REPORT -------- Dictated By: Mert Wells Dictated Date: 02/14/2025 08:03 ET Assigned Physician: Mert Wells Reviewed and Electronically Signed By: Mert Wells Signed Date: 02/14/2025 08:04 ET Workstation ID: [id number] Transcribed By: Self Edit Transcribed Date: 02/14/2025 08:03 ET us Cayla Sullivan MD IMG DXA PROCEDURES Fin al Result * MG Mammo Digital Screening w Kuldip bilat (11/06/2024 7:35 AM EST) Anatomical Region Laterality Modality Breast Bilateral Mammography 11/07/2024 9:29 AM EST Impressions 11/07/2024 9:37 AM EST No mammographic evidence of malignancy. BI-RADS: Category 1: Negative RECOMMENDATION(S): Routine screening mammogram BILATERAL in 1 year. -------- FINAL REPORT -------- Dictated By: MICHELE LUGO Dictated Date: 11/07/2024 09:29 ET Assigned Physician: MICHELE LUGO Reviewed and Electronically Signed By: MICHELE LUGO Signed Date: 11/07/2024 09:37 ET Workstation ID: [id number] Transcribed By: Self Edit Transcribed Date: 11/07/2024 09:29 ET Narrative 11/07/2024 9:37 AM EST EXAM: MG MAMMO DIGITAL SCREENING W KULDIP BILAT EXAM DATE AND TIME: 11/06/2024 7:25 AM HISTORY: Screening COMPARISON: 06/02/2023 through 01/19/2022 TECHNIQUE: Bilateral digital breast tomosynthesis was performed in the MLO projection. Computer aided detection with [employer] 3D 3.1 was employed. TISSUE DENSITY: a: The breasts are almost entirely fatty. FINDINGS: There is no evidence of suspicious mass, unusual calcifications, or architectural distortion. Procedure Note Michele Lugo MD - 11/07/2024 EXAM: MG MAMMO DIGITAL SCREENING W KULDIP BILAT EXAM DATE AND TIME: 11/06/2024 7:25 AM HISTORY: Screening COMPARISON: 06/02/2023 through 01/19/2022 TECHNIQUE: Bilateral digital breast tomosynthesis was performed in the MLOprojection. Computer aided detection with [employer] [place] 3D 3.1 wasemployed. TISSUE DENSITY: a: The breasts are almost entirely fatty. FINDINGS: There is no evidence of suspicious mass, unusual calcifications, orarchitectural distortion. IMPRESSION: No mammographic evidence of malignancy. BI-RADS: Category 1: Negative RECOMMENDATION(S): Routine screening mammogram BILATERAL in 1 year. -------- FINAL REPORT -------- Dictated By: MICHELE LUGO Dictated Date: 11/07/2024 09:29 ET Assigned Physician: MICHELE LUGO Reviewed and Electronically Signed By: MICHELE LUGO Signed Date: 11/07/2024 09:37 ET Workstation ID: [id number] Transcribed By: Self Edit Transcribed Date: 11/07/2024 09:29 ET Self Referral Sppl IMG BI PROCEDURES Final Resul t * Depression Screening (07/26/2024) Pathologist [facility] Depression Screening ABSTRACTED Historical Provider HEALTH MAINTENANCE Final Result * (ABNORMAL) Lipid panel (07/26/2024) [facility] LDL/HDL Ratio 3 0 - 4 Triglycerides 152(A) 0 - 150 mg/dL Cholesterol 169 0 - 200 mg/dL HDL 68 >=40 mg/dL LDL Cholesterol 71 0 - 100 mg/dL Blood Venous blood specimen / Unknown Result [facility] Historical Provider LAB BLOOD ORDERABLES Alla l Result * Colonoscopy (11/09/2023) Pathologist [facility] Colonoscopy NO INTERPRETATION , ABSTRACTED Anatomical Region Laterality Modality Other Historical Provider HEALTH MAINTENANCE Final Result * Cervical Cancer Screening: HPV (08/23/2021) [facility] Cervical Cancer Screening: HPV NEGATIVE, ABSTRACTED Historical Provider HEALTH MAINTENANCE Final Result * Hepatitis C Screening (04/15/2016) [facility] Hepatitis C Screening ABSTRACTED Historical Provider HEALTH MAINTENANCE Final Result from Last 3 Months or Most Recently Relevant to Health Maintenance Insurance MEDICARE BLUE [employer]OSS - [place] MEDICARE 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
--- OUTSIDE RECORDS SUMMARY | 2025-08-06 07:37 | XMS_ITS | Continuity of Care Document ---
Author Organization [place] - [facility], Allergy Address [address] [address] Care Team Providers Care Field Case Manager Name Role Phone LORENZO BRUNO Primary Care Provider Assessment Encounter Date Assessment Date Assessment LastModified by Organization Details LastModified Time 05/07/2025 05/07/2025 Visit With: Joby Mercado RN Use of Antihistamine s: No If yes: Vial Test Yes Change in medications: Yes If yes dupixent Increase in asthma symptoms No If yes, inhaler use: Reaction to last injections: No If yes: Allergy Symptoms: Other: Missed: Dose Aware of Vial Test Aware: Notes: [email or web address] Not available 05/07/2025 17:07:49 Plan of Treatment Reminders Order Date Submit Date Provider Last Modified By Organization Details Last Modified Time Details Appointments None record ed. Lab None record ed. Referral None record ed. Procedures None record ed. Surgeries None record ed. Imaging None record ed. Medication Orders None record ed. Patient TargetsNo targets recorded. Patient InstructionsNo instructions recorded. Reason for Referral None Reported. 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, unspecifi ed lacrimal gland; Note: Date Diagnosed : 10/08/2018 12:03 PM (H04.229) Not Available [facility] 4 02:39:14 Bilateral earache 281038382 Active 2021 Otalgia, bilateral ; Note: Date Diagnosed : 08/31/2022 2:27 PM (H92.03) Otalgia , bilateral ; Note: Date Diagnosed : 07/30/2018 12:03 PM (H92.03) ; Start Date : 8 Not Available [facility] 4 02:39:28 Acute maxillary sinusitis 77271742 Active 2021 Acute maxillary sinusitis , unspecifi ed; Note: Date Diagnosed : 08/31/2022 2:33 PM (J01.00) Not Available [facility] 4 02:39:22 Bilateral temporoma ndibular joint pain [id number] 066968 Active 2021 Arthralgi a of bilateral temporoma ndibular joint; Note: Date Diagnosed : 08/31/2022 2:27 PM (M26.623) Not Available [facility] 4 02:39:12 Allergic rhinitis 13959934 Active 2022 Allergic rhinitis: Due to other [...] to other allergen; Note: Date Diagnosed : 10/12/202 2 3:06 PM (477.8) Note: Date Diagnosed [...] : 06/24/2021 3:07 PM (477. Not Available [facility] 4 01:02:06 Perennial allergic rhinitis 559729803 Active 2023 Eduardo Burks [address] [place] [address],[place] [address], [place], [address] , [facility] - [facility] 5 17:09:07 Chronic sinusitis 26970385 Active 2023 BRIAN JACKSON MD [address] [place], [place] [address], [address] , [facility] - [facility] 5 09:10:30 Deviated nasal septum 731075076 Active 2024 BRIAN JACKSON MD [address] [place] [address],[place] [address], [place], [address] , [facility] - [facility] 5 09:09:20 Problem Notes None recorded. Procedures Surgical History Date Name Laterality Status Provider Name and Address Organization Details Recorded Time 07/11/20 25 JMSNasal/Sinus Endoscopy-PRIOR surgical cavities completed BRIAN FERREIRA MD [address] [place] [address],[place] [address], [place], [address], [facility] - [facility] 07/11/2025 09:09:16 06/25/20 25 Allergy Immunotherapy Injections completed Eduardo Burks [address] [place] [address],[address], [place], [address], [place] [facility] 06/25/2025 17:09:31 05/07/20 25 Allergy Immunotherapy Injections completed JOBY MERCADO RN [address], [place], [address], [place] [facility] 05/07/2025 17:07:34 04/16/20 25 Allergy Immunotherapy Injections completed GOMEZ KORZEC, RMA [address], [place], [address], [place] [facility] 04/16/2025 16:59:55 03/05/20 25 Allergy Immunotherapy Injections completed GOMEZ KORZEC, RMA [address], [place], [address], [place] [facility] 03/05/2025 17:01:03 02/06/20 25 Allergy Immunotherapy Injections completed GOMEZ KORZEC, RMA [address], [place], [address], [place] [facility] 02/05/2025 16:58:15 01/02/20 25 Allergy Immunotherapy Injections completed GOMEZ KORZEC, RMA [address], [place], [address], [place] [facility] 01/01/2025 17:46:59 12/05/19 25 Allergy Immunotherapy Injections completed GOMEZ KORZEC, RMA [address], [address], [place] [facility] 12/04/2024 17:13:39 11/13/19 25 Allergy Immunotherapy Injections completed JOBY MERCADO RN [address], [place], [address], [place] [facility] 11/13/2024 16:55:31 10/02/19 25 Allergy Immunotherapy Injections completed JOBY MERCADO RN [address], [place], [address], [place] [facility] 10/02/2024 17:09:55 09/19/20 24 JMSNasal/Sinus Endoscopy-PRIOR surgical cavities completed BRIAN FERREIRA MD [address] [place],[address] [place] [address], [address], [facility] - [facility] 09/19/2024 12:20:47 08/14/20 24 Allergy Immunotherapy Injections completed GOMEZ GOODMAN RMA [address], [address], [facility] - [facility] 08/14/2024 16:56:13 07/24/20 24 Allergy Immunotherapy Injections completed GOMEZ GOODMAN RMA [address] [facility] [place],[address] [place] [address], [address], [facility] - [facility] 07/24/2024 17:06:58 06/26/20 24 Allergy Immunotherapy Injections completed JOBY MERCADO RN [address] [facility] [place],[address], [address], [facility] - [facility] 06/26/2024 17:13:16 05/08/20 24 Allergy Immunotherapy Injections completed SILVIA HERNANDEZ [address] [facility] [place],[address], [address], [facility] - [facility] 05/08/2024 17:00:48 03/13/20 24 Allergy Immunotherapy Injections completed SILVIA HERNANDEZ [address] [facility] [place],[address], [address], [facility] - [facility] 03/13/2024 17:11:42 02/14/20 24 Allergy Immunotherapy Injections completed SILVIA HERNANDEZ [address] [facility] [place],[address], [address], [facility] - [facility] 02/14/2024 17:24:04 functional endoscopic sinus surgery completed BRIAN FERREIRA MD [address] [facility] [place],[address] [place] [address], [address], [facility] - [facility] 09/19/2024 12:17:31 Imaging Results None recorded. Procedure Notes None recorded. Medical Equipment None Reported. Allergies Allergen ID Allergen Name Allergen Category Reaction Reaction Severity Criticality Documentation Date Start Date Code Code System Note Provider Name and Address Organization Details Recorded Time 787490 Product containin g penicilli n (product) medicatio n Not available Not available Not available 07/11/2025 66105 8001 SNOMED Winsome tadeo, [place] - [facility] 5 08:52:16 810741 cat dander environme nt Not available Not available Not available 07/11/2025 Winsome Shubham t[place], [place] [facility] 5 08:52:22 764929 Canis lupus familiari s extract environme nt Not available Not available Not available 07/11/2025 09483 4 RxNorm Winsome ta[place], [place] [facility] 5 08:52:27 429953 house dust allergeni c extract environme nt,medica tion Not available Not available Not available 07/11/2025 77158 9 RxNorm Winsome tadeo, [place] [facility] 5 08:52:33 080591 POLLEN EXTRACTS environme nt,medica tion Not available Not available Not available 07/11/2025 22628 6 RxNorm Winsome t[place]o, [place] [facility] 5 08:52:39 43737 Penicilli n Not available Not available Not available Not available 02/06/2024 32891 RxNorm BRIAN DU MD [address] [place] [address], [phone] [place] [address] - [facility] 4 12:09:28 Medications Name Sig Start Date Stop Date Status Note LastModified by Organization Details LastModified Time methocarb meera 500 mg tablet 03/14 completed Medicati on ID: [id number] D uration Value: 7 Brand Name: methocar bamol Se nd Method: E-Prescr ibed Sub s Allowed: subs OK Speci al Instruct ion: take 1 tablet by mouth three times a day Medi cationGe nericNam e: methocar bamol Not Available Not Available Not Available clonidine HCl 0.1 mg tablet 07/11 completed Medicati on ID: [id number] D uration Value: 30 Brand Name: clonidin e HCl Send Method: E-Prescr ibed Sub s Allowed: subs OK Medic ationGen ericName : clonidin e HCl Not Available Not Available Not Available gabapenti n 600 mg tablet 07/22 completed Medicati on ID: [id number] D uration Value: 30 Brand Name: gabapent in Send Method: E-Prescr ibed Sub s Allowed: subs OK Speci al Instruct ion: take 1 tablet by mouth three times a day Medi cationGe nericNam e: gabapent in Not Available Not Available Not Available atorvasta tin 20 mg tablet 07/11 completed Medicati on ID: [id number] D uration Value: 30 Brand Name: atorvast atin Sen d Method: E-Prescr ibed Sub s Allowed: subs OK Speci al Instruct ion: take 1 tablet by mouth once daily Me dication GenericN solo: atorvast atin Not Available Not Available Not Available sertralin e 100 mg tablet 2017 active Medicati on ID: [id number] D uration Value: 30 Brand Name: sertrali ne Send Method: E-Prescr ibed Sub s Allowed: subs OK Speci al Instruct ion: take 1 1/2 tablets by mouth once daily Me dication GenericN solo: sertrali ne Not Available Not Available Not Available sumatript an 50 mg tablet 03/14 completed Medicati on ID: [id number] D uration Value: 30 Brand Name: sumatrip to succinat e Send Method: E-Prescr ibed Sub s Allowed: subs OK Medic ationGen ericName : sumatrip to succinat e Not Available Not Available Not Available acyclovir 400 mg tablet 03/14 completed Medicati on ID: [id number] D uration Value: 30 Brand Name: acyclovi r Send Method: E-Prescr ibed Sub s Allowed: subs OK Speci al Instruct ion: take 1 tablet by mouth once daily Me dication GenericN solo: acyclovi r Not Available Not Available Not Available Vitamins B Complex capsule 11/02 completed Medicati on ID: [id number] D uration Value: 30 Brand Name: Vitamins B Complex Send Method: E-Prescr ibed Sub s Allowed: subs OK Medic ationGen ericName : Vitamins B Complex Not Available Not Available Not Available tramadol 50 mg tablet 11/02 completed Medicati on ID: [id number] D uration Value: 25 Brand Name: tramadol Send Method: E-Prescr ibed Sub s Allowed: subs OK Speci al Instruct ion: TK 1 TO 2 TS PO Q 6 H Medica tionGene ricName: tramadol Not Available Not Available Not Available clindamyc in 1 % topical gel 08/31 completed Medicati on ID: [id number] D uration Value: 20 Brand Name: clindamy michelle phosphat e Send Method: E-Prescr ibed Sub s Allowed: subs OK Medic ationGen ericName : clindamy michelle phosphat e Not Available Not Available Not Available trazodone 100 mg tablet 2017 active Medicati on ID: [id number] B rand Name: trazodon e Send Method: E-Prescr ibed Sub s Allowed: subs OK Medic ationGen ericName : trazodon e Not Available Not Available Not Available baclofen 10 mg tablet 08/31 completed Medicati on ID: [id number] D uration Value: 60 Brand Name: baclofen Send Method: E-Prescr ibed Sub s Allowed: subs OK Speci al Instruct ion: TK 2 TS PO HS AND 1 T EVERY MORNING Medicati onGeneri cName: baclofen Not Available Not Available Not Available triamcino lone acetonide 0.1 % topical ointment 03/14 completed Medicati on ID: [id number] D uration Value: 25 Brand Name: triamcin olone acetonid e Send Method: E-Prescr ibed Sub s Allowed: subs OK Medic ationGen ericName : triamcin olone acetonid e Not Available Not Available Not Available gabapenti n 300 mg capsule 11/19 completed Medicati on ID: [id number] D uration Value: 30 Reason: () Brand Name: gabapent in Send Method: E-Prescr ibed Sub s Allowed: subs OK Speci al Instruct ion: take 1 capsule by mouth three times a day Medi cationGe nericNam e: gabapent in Not Available Not Available Not Available mont[address] [facility] 10 mg tablet 11/05 completed Medicati on ID: [id number] D uration Value: 30 Reason: () Brand [...] aerosol inhaler 07/11 completed Medicati on ID: [id number] D uration Value: 16 Brand Name: albutero l sulfate Send Method: E-Prescr ibed Sub s Allowed: subs OK Speci al Instruct ion: INL 2 PFS ITL Q 4 H PRF COUGH OR WHZ Medi cationGe nericNam e: albutero l sulfate Not Available Not Available Not Available spironola ctone 50 mg tablet 03/14 completed Medicati on ID: [id number] D uration Value: 30 Brand Name: spironol actone S end Method: E-Prescr ibed Sub s Allowed: subs SUSANNE Speci al Instruct ion: take 1 tablet by mouth twice a day with food Med icationG enericNa me: spironol actone Not Available Not Available Not Available amoxicill in 875 mg-potass ium clavulana te 125 mg tablet 03/14 completed Medicati on ID: [id number] B rand Name: amoxicil marlene-pot clavulan ate Send Method: E-Prescr ibed Sub s Allowed: subs OK Medic ationGen ericName : amoxicil marlene-pot clavulan ate Not Available Not Available Not Available Oyster Shell Calcium-5 00 500 mg (as carbonate 1,250 mg) tablet 2018 active Medicati on ID: [id number] D uration Value: 30 Brand Name: Oyster Shell Calcium 500 Send Method: E-Prescr ibed Sub s Allowed: subs OK Medic ationGen ericName : Oyster Shell Calcium 500 Not Available Not Available Not Available Premarin 0.625 mg/gram vaginal cream 2017 active Medicati on ID: [id number] D uration Value: 30 Brand Name: Premarin Send Method: E-Prescr ibed Sub s Allowed: subs OK Speci al Instruct ion: INSERT 2 GRAMS VAGINALL Y TWICE A WEEK Med icarejiG alirioericIzabela me: Premarin Not Available Not Available Not Available bupropion HCl XL 300 mg 24 hr tablet, extended release 2017 active Medicati on ID: [id number] D uration Value: 30 Brand Name: bupropio n HCl Send Method: E-Prescr ibed Sub s Allowed: subs OK Speci al Instruct ion: TAKE 1 TABLET BY MOUTH EVERY MORNING. Medicat ionGener icName: bupropio n HCl Not Available Not Available Not Available Fish Oil 340 mg-1,000 mg capsule 2018 active Medicati on ID: [id number] D uration Value: 30 Brand Name: Fish Oil Send Method: E-Prescr ibed Sub s Allowed: subs OK Medic ationGen ericName : Fish Oil Not Available Not Available Not Available Glucosami ne Chondroit Complx Advan 750 mg-100 mg-125 mg-1.65 mg tablet 11/02 completed Medicati on ID: [id number] D uration Value: 30 Brand Name: Glucos Chond Cplx Advanced Send Method: E-Prescr ibed Sub s Allowed: subs OK Speci al Instruct ion: TK 1 T PO D Medica tionGene ricName: Glucos Chond Cplx Advanced Not Available Not Available Not Available cholecalc iferol (vitamin D3) 50 mcg (2,000 unit) capsule 2018 active Medicati on ID: [id number] D uration Value: 30 Brand Name: cholecal ciferol (vitamin D3) Send Method: E-Prescr ibed Sub s Allowed: subs OK Medic ationGen ericName : cholecal ciferol (vitamin D3) Not Available Not Available Not Available dapsone 5 % topical gel 03/14 completed Medicati on ID: [id number] B rand Name: dapsone Send Method: E-Prescr ibed Sub s Allowed: subs OK Speci al Instruct ion: APPLY THIN LAYER EXTERNAL LY TO FACE EVERY DAY IN THE MORNING Medicati onGeneri cName: dapsone Not Available Not Available Not Available Myrbetriq 25 mg tablet,ex tended release 10/15 completed Medicati on ID: [id number] B rand Name: Mak q Send Method: E-Prescr ibed Sub s Allowed: subs OK Medic ationGen ericName : Myrbetri q Not Available Not Available Not Available Konsyl Sugar-Sotero e 6 gram oral powder packet 12/13 completed Medicati on ID: [id number] D uration Value: 30 Reason: () Brand Name: Konsyl Sugar-Fr ee Send Method: E-Prescr ibed Sub s Allowed: subs OK Medic ationGen ericName : Konsyl Sugar-Fr ee Not Available Not Available Not Available ProAir RespiClic k 90 mcg/actua tion breath activated 2017 active Medicati on ID: [id number] B rand Name: ProAir RespiCli ck Send Method: E-Prescr ibed Sub s Allowed: subs OK Medic ationGen ericName : ProAir RespiCli ck Not Available Not Available Not Available Dupixent Syringe active Not Available Not Available Not Available Vitals None Recorded Social History None recorded. Functional Status None recorded. Mental Status None recorded. Family History Nothing Reported. Medical History Condition Response Allergies/Hayfever Y Heart Problems N Anxiety Y Tonsil Infections N Emphysema N Migraines N Thyroid Problems Y Glaucoma N Depression Y COPD N Developmental Delay N Nasal or Sinus Problems Y Anemia N Immune System Disorder N Anesthesia Complications N Heart Attack ([place]) N Other Skin Condition Y Diabetes N Rhinitis Y Bleeding Disorder N Food Allergy N Arthritis Y Hearing Loss N Hyperlipidemia N Cancer N Stroke N Dementia N Nasal polyps Y Asthma Y Sleep Disorder N GERD/Reflux Y High Cholesterol Y Liver Disease N Headaches N Fibromyalgia N Hypertension N Speech Delay N Kidney Disease N Gynecological HistoryNo gynecological history recorded. Obstetrics History GPAL:G 0 P 0 0 0 0 Past Encounters Encounter ID Performer Location Encounter Start Date Encounter Closed Date Diagnosis/Indication Diagnosis SNOMED-CT Code Diagnosis ICD10 Code Diagnosis IMO Codes Diagnosis Note [id number] GOMEZ GOODMAN, RMA Allergy [address] [facility] [address] [place] [address] 04/16/2025 16:48:45 04/16/2025 17:00:26 Perennial allergic rhinitis 136323425 J30.89 [id number] JOBY MERCADO, furnace brazer [address] [place] [address] [facility], [place] [address] 05/07/2025 16:47:55 05/07/2025 17:08:15 Perennial allergic rhinitis 482550682 J30.89 Health Concerns Section Related Observation LastModified by Organization Detai ls LastModified Time None Recorded Concern Status LastModified by Organization Details LastModified Time None Recorded Payers Encounter Date Sequence Insurance Name Policy Number Policy Gallagher Covered Member ID Gallagher Member ID Guarantor Name 05/07/2025 1 [facility]UE (MEDICARE REPLACEMENT PPO) [id number] Tamera Le Madeleine [id number] Tamera Le Madeleine OBGyn Episode No OBEpisode recorded.
--- OUTSIDE RECORDS SUMMARY | 2025-08-06 07:37 | XMS_ITS | Continuity of Care Document ---
Author Organization [place] - [facility], Allergy Address [address] [address] Care Team Providers Care Retort Cooler Name Role Phone LORENZO BRUNO Primary Care Provider Assessment Encounter Date Assessment Date Assessment LastModified by Organization Details LastModified Time 06/25/2025 06/25/2025 Visit With: Eduardo Burks [place] Use of Antihistamine s: No If yes: Vial Test Change in medications: No If yes Increase in asthma symptoms No If yes, inhaler use: Reaction to last injections: No If yes: Allergy Symptoms: Other: Missed: 4 or more weeks Dose Decreased Aware of Vial Test Aware: Notes: [email or web address] Not available 06/25/2025 17:09:49 Plan of Treatment Reminders Order Date Submit [...] Address Organization Details Recorded Time Chronic rhinitis 12300675 Active 2017 Chronic rhinitis; Note: Date Diagnosed : 07/30/2018 12:02 PM (J31.0) Not Available [facility] 4 02:39:11 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 82954144 Active 2018 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, unspecifi ed lacrimal gland; Note: Date Diagnosed : 10/08/2018 12:03 PM (H04.229) Not Available [facility] 4 02:39:14 Bilateral earache 151351491 Active 2021 Otalgia, bilateral ; Note: Date Diagnosed : 08/31/2022 2:27 PM (H92.03) Otalgia , bilateral ; Note: Date Diagnosed : 07/30/2018 12:03 PM (H92.03) ; Start Date : 8 Not Available [facility] 4 02:39:28 Acute maxillary sinusitis 07410964 Active 2021 Acute maxillary sinusitis , unspecifi ed; Note: Date Diagnosed : 08/31/2022 2:33 PM (J01.00) Not Available [facility] 4 02:39:22 Bilateral temporoma ndibular joint pain [id number] 914547 Active 2021 Arthralgi a of bilateral temporoma ndibular joint; Note: Date Diagnosed : 08/31/2022 2:27 PM (M26.623) Not Available [facility] 4 02:39:12 Allergic rhinitis 96019044 Active 2022 Allergic rhinitis: Due to other [...] : 06/24/2021 3:07 PM (477. Not Available [facility] 4 01:02:06 Perennial allergic rhinitis 390279164 Active 2023 Eduardo Burks [address] [place] [address],[place] [address], [place], [address] , [facility] - [facility] 5 17:09:07 Chronic sinusitis 85863115 Active 2023 BRIAN JACKSON MD [address] [place], [place] [address], [address] , [facility] - [facility] 5 09:10:30 Deviated nasal septum 362073343 Active 2024 BRIAN JACKSON MD [address] [place] [address],[place] [address], [place], [address] , [facility] - [facility] 5 09:09:20 Problem Notes None recorded. Procedures Surgical History Date Name Laterality Status Provider Name and Address Organization Details Recorded Time 07/11/20 25 JMSNasal/Sinus Endoscopy-PRIOR surgical cavities completed BRIAN FERREIRA MD [address] [place] [address],[place] [address], [place], [address], [facility] - [facility] 07/11/2025 09:09:16 06/25/20 25 Allergy Immunotherapy Injections completed Eduardo Burks [address] [place] [address],[address], [place], [address], [place] [facility] 06/25/2025 17:09:31 05/07/20 25 Allergy Immunotherapy Injections completed JOBY MERCADO RN [address], [place], [address], [place] [facility] 05/07/2025 17:07:34 04/16/20 25 Allergy Immunotherapy Injections completed GOMEZ KORZEC, RMA [address], [place], [address], [place] [facility] 04/16/2025 16:59:55 03/05/20 25 Allergy Immunotherapy Injections completed GOMEZ KORZEC, RMA [address], [place], [address], [place] [facility] 03/05/2025 17:01:03 02/06/20 25 Allergy Immunotherapy Injections completed GOMEZ ARJUNC, RMA [address], [place], [address], [place] [facility] 02/05/2025 16:58:15 01/02/20 25 Allergy Immunotherapy Injections completed GOMEZ KORZEC, RMA [address], [place], [address], [place] [facility] 01/01/2025 17:46:59 12/05/19 25 Allergy Immunotherapy Injections completed GOMEZ KORZEC, RMA [address], [place], [address], [place] [facility] 12/04/2024 17:13:39 11/13/19 25 Allergy Immunotherapy Injections completed JOBY MERCADO RN [address], [place], [address], [place] [facility] 11/13/2024 16:55:31 10/02/19 25 Allergy Immunotherapy Injections completed JOBY MERCADO RN [address], [place], [address], [place] [facility] 10/02/2024 17:09:55 09/19/20 24 JMSNasal/Sinus Endoscopy-PRIOR surgical cavities completed BRIAN FERREIRA MD [address] [facility] [place],[address] [place] [address], [address], [facility] - [facility] 09/19/2024 12:20:47 08/14/20 24 Allergy Immunotherapy Injections completed GOMEZ GOODMAN RMA [address], [place], [address], [facility] - [facility] 08/14/2024 16:56:13 07/24/20 24 Allergy Immunotherapy Injections completed GOMEZ GOODMAN A [address] [facility] [place],[address] [place] [address], [address], [facility] - [facility] 07/24/2024 17:06:58 06/26/20 24 Allergy Immunotherapy Injections completed JOBY MERCADO RN [address] [facility] [place],[address], [address], [facility] - [facility] 06/26/2024 17:13:16 05/08/20 24 Allergy Immunotherapy Injections completed SILVIA HERNANDEZ [address] [facility] [place],[address] [place] [address], [address], [facility] - [facility] 05/08/2024 17:00:48 03/13/20 24 Allergy Immunotherapy Injections completed SILVIA HERNANDEZ [address] [facility] [place],[address], [address], [facility] - [facility] 03/13/2024 17:11:42 02/14/20 24 Allergy Immunotherapy Injections completed SILVIA HERNANDEZ [address] [facility] [place],[address], [address], [facility] - [facility] 02/14/2024 17:24:04 functional endoscopic sinus surgery completed BRIAN FERREIRA MD [address] [facility] [place],[address] [place] [address], [address], [facility] - [facility] 09/19/2024 12:17:31 Imaging Results None recorded. Procedure Notes None recorded. Medical Equipment None Reported. Allergies Allergen ID Allergen Name Allergen Category Reaction Reaction Severity Criticality Documentation Date Start Date Code Code System Note Provider Name and Address Organization Details Recorded Time [id number] Product containin g penicilli n (product) medicatio n Not available Not available Not available 07/11/2025 54892 8001 SNOMED Winsome [place] - [facility] 5 08:52:16 832289 cat dander environme nt Not available Not available Not available 07/11/2025 [place] - [facility] 5 08:52:22 443069 Canis lupus familiari s extract environme nt Not available Not available Not available 07/11/2025 37887 4 RxNorm Winsome [place] [facility] 5 08:52:27 761598 house dust allergeni c extract environme nt,medica tion Not available Not available Not available 07/11/2025 52686 9 RxNorm Winsome [place] [facility] 5 08:52:33 079840 POLLEN EXTRACTS environme nt,medica tion Not available Not available Not available 07/11/2025 70238 6 RxNorm [place]ome [place] - [facility] 5 08:52:39 32499 Penicilli n Not available Not available Not available Not available 02/06/2024 49208 RxNorm BRIAN DU MD [address] [place] [address], [address] [place] [address] - [facility] 4 12:09:28 Medications Name Sig Start Date Stop Date Status Note LastModified by Organization Details LastModified Time methocarb meera 500 mg tablet 03/14 completed Medicati on ID: [id number] D uration Value: 7 Brand Name: methocar bamol Se nd Method: E-Prescr ibed Sub s Allowed: subs OK Speci al Instruct ion: take 1 tablet by mouth three times a day Medi cationGe nericNam e: methocar bamol Not Available Not Available Not Available clonidine HCl 0.1 mg tablet 07/11 completed Medicati on ID: [id number] D uration Value: 30 Brand Name: clonidin e HCl Send Method: E-Prescr ibed Sub s Allowed: subs OK Medic ationGen ericName : clonidin e HCl Not Available Not Available Not Available gabapenti n 600 mg tablet 07/22 completed Medicati on ID: [id number] D uration Value: 30 Brand Name: gabapent in Send Method: E-Prescr ibed Sub s Allowed: subs OK Speci al Instruct ion: take 1 tablet by mouth three times a day Medi cationGe nericNam e: gabapent in Not Available Not Available Not Available atorvasta tin 20 mg tablet 07/11 completed Medicati on ID: [id number] D uration Value: 30 Brand Name: atorvast atin Sen d Method: E-Prescr ibed Sub s Allowed: subs OK Speci al Instruct ion: take 1 tablet by mouth once daily Me dication GenericN solo: atorvast atin Not Available Not Available Not Available sertralin e 100 mg tablet 2017 active Medicati on ID: [id number] D uration Value: 30 Brand Name: sertrali ne Send Method: E-Prescr ibed Sub s Allowed: subs OK Speci al Instruct ion: take 1 1/2 tablets by mouth once daily Me dication GenericN solo: sertrali ne Not Available Not Available Not Available sumatript an 50 mg tablet 03/14 completed Medicati on ID: [id number] D uration Value: 30 Brand Name: sumatrip to succinat e Send Method: E-Prescr ibed Sub s Allowed: subs OK Medic ationGen ericName : sumatrip to succinat e Not Available Not Available Not Available acyclovir 400 mg tablet 03/14 completed Medicati on ID: [id number] D uration Value: 30 Brand Name: acyclovi r Send Method: E-Prescr ibed Sub s Allowed: subs OK Speci al Instruct ion: take 1 tablet by mouth once daily Me dication GenericN solo: acyclovi r Not Available Not Available Not Available Vitamins B Complex capsule 11/02 completed Medicati on ID: [id number] D uration Value: 30 Brand Name: Vitamins B Complex Send Method: E-Prescr ibed Sub s Allowed: subs OK Medic ationGen ericName : Vitamins B Complex Not Available Not Available Not Available tramadol 50 mg tablet 11/02 completed Medicati on ID: [id number] D uration Value: 25 Brand Name: tramadol Send Method: E-Prescr ibed Sub s Allowed: subs OK Speci al Instruct ion: TK 1 TO 2 TS PO Q 6 H Medica tionGene ricName: tramadol Not Available Not Available Not Available clindamyc in 1 % topical gel 08/31 completed Medicati on ID: [id number] D uration Value: 20 Brand Name: clindamy michelle phosphat e Send Method: E-Prescr ibed Sub s Allowed: subs OK Medic ationGen ericName : clindamy michelle phosphat e Not Available Not Available Not Available trazodone 100 mg tablet 2017 active Medicati on ID: [id number] B rand Name: trazodon e Send Method: E-Prescr ibed Sub s Allowed: subs OK Medic ationGen ericName : trazodon e Not Available Not Available Not Available baclofen 10 mg tablet 08/31 completed Medicati on ID: [id number] D uration Value: 60 Brand Name: baclofen Send Method: E-Prescr ibed Sub s Allowed: subs OK Speci al Instruct ion: TK 2 TS PO HS AND 1 T EVERY MORNING Medicati onGeneri cName: baclofen Not Available Not Available Not Available triamcino lone acetonide 0.1 % topical ointment 03/14 completed Medicati on ID: [id number] D uration Value: 25 Brand Name: triamcin olone acetonid e Send Method: E-Prescr ibed Sub s Allowed: subs OK Medic ationGen ericName : triamcin olone acetonid e Not Available Not Available Not Available gabapenti n 300 mg capsule 11/19 completed Medicati on ID: [id number] D uration Value: 30 Reason: () Brand Name: gabapent in Send Method: E-Prescr ibed Sub s Allowed: subs OK Speci al Instruct ion: take 1 capsule by mouth three times a day Medi cationGe nericNam e: gabapent in Not Available Not Available Not Available [facility] 10 mg tablet 11/05 completed Medicati on ID: [id number] D uration Value: 30 Reason: () Brand [...] aerosol inhaler 07/11 completed Medicati on ID: [id number] D uration Value: 16 Brand Name: albutero l sulfate Send Method: E-Prescr ibed Sub s Allowed: subs SUSANNE Speci al Instruct ion: INL 2 PFS ITL Q 4 H PRF COUGH OR WHZ Medi cationGe nericNam e: albutero l sulfate Not Available Not Available Not Available spironola ctone 50 mg tablet 03/14 completed Medicati on ID: [id number] D uration Value: 30 Brand Name: spironol actone S end Method: E-Prescr ibed Sub s Allowed: subs SUSANNE Martin al Instruct ion: take 1 tablet by mouth twice a day with food Med icationG enericNa me: spironol actone Not Available Not Available Not Available amoxicill in 875 mg-potass ium clavulana te 125 mg tablet 03/14 completed Medicati on ID: [id number] B rand Name: amoxicil marlene-pot clavulan ate Send Method: E-Prescr ibed Sub s Allowed: subs OK Medic ationGen ericName : amoxicil marlene-pot clavulan ate Not Available Not Available Not Available Oyster Shell Calcium-5 00 500 mg (as carbonate 1,250 mg) tablet 2018 active Medicati on ID: [id number] D uration Value: 30 Brand Name: Oyster Shell Calcium 500 Send Method: E-Prescr ibed Sub s Allowed: subs OK Medic ationGen ericName : Oyster Shell Calcium 500 Not Available Not Available Not Available Premarin 0.625 mg/gram vaginal cream 2017 active Medicati on ID: [id number] D uration Value: 30 Brand Name: Premarin Send Method: E-Prescr ibed Sub s Allowed: subs OK Speci al Instruct ion: INSERT 2 GRAMS VAGINALL Y TWICE A WEEK Med icarejiG yuIzabela me: Premarin Not Available Not Available Not Available bupropion HCl XL 300 mg 24 hr tablet, extended release 2017 active Medicati on ID: [id number] D uration Value: 30 Brand Name: bupropio n HCl Send Method: E-Prescr ibed Sub s Allowed: subs OK Speci al Instruct ion: TAKE 1 TABLET BY MOUTH EVERY MORNING. Medicat ionGener icName: bupropio n HCl Not Available Not Available Not Available Fish Oil 340 mg-1,000 mg capsule 2018 active Medicati on ID: [id number] D uration Value: 30 Brand Name: Fish Oil Send Method: E-Prescr ibed Sub s Allowed: subs OK Medic ationGen ericName : Fish Oil Not Available Not Available Not Available Glucosami ne Chondroit Complx Advan 750 mg-100 mg-125 mg-1.65 mg tablet 11/02 completed Medicati on ID: [id number] D uration Value: 30 Brand Name: Glucos Chond Cplx Advanced Send Method: E-Prescr ibed Sub s Allowed: subs OK Speci al Instruct ion: TK 1 T PO D Medica tionGene ricName: Glucos Chond Cplx Advanced Not Available Not Available Not Available cholecalc iferol (vitamin D3) 50 mcg (2,000 unit) capsule 2018 active Medicati on ID: [id number] D uration Value: 30 Brand Name: cholecal ciferol (vitamin D3) Send Method: E-Prescr ibed Sub s Allowed: subs OK Medic ationGen ericName : cholecal ciferol (vitamin D3) Not Available Not Available Not Available dapsone 5 % topical gel 03/14 completed Medicati on ID: [id number] B rand Name: dapsone Send Method: E-Prescr ibed Sub s Allowed: subs OK Speci al Instruct ion: APPLY THIN LAYER EXTERNAL LY TO FACE EVERY DAY IN THE MORNING Medicati onGeneri cName: dapsone Not Available Not Available Not Available Myrbetriq 25 mg tablet,ex tended release 10/15 completed Medicati on ID: [id number] B rand Name: Mak q Send Method: E-Prescr ibed Sub s Allowed: subs OK Medic ationGen ericName : Myrbetri q Not Available Not Available Not Available Konsyl Sugar-Sotero e 6 gram oral powder packet 12/13 completed Medicati on ID: [id number] D uration Value: 30 Reason: () Brand Name: Konsyl Sugar-Fr ee Send Method: E-Prescr ibed Sub s Allowed: subs OK Medic ationGen ericName : Konsyl Sugar-Fr ee Not Available Not Available Not Available ProAir RespiClic k 90 mcg/actua tion breath activated 2017 active Medicati on ID: [id number] B rand Name: ProAir RespiCli ck Send [...] Disorder N Anesthesia Complications N Heart Attack ([place]) N Other Skin Condition Y Diabetes N [...] ICD10 Code Diagnosis IMO Codes Diagnosis Note 02014 GOMEZ GOODMAN, RMA Allergy [address] [facility] 100 [facility] [place] [address] 06/25/2025 16:46:58 06/25/2025 17:10:05 Perennial allergic rhinitis [id number] J30.89 Health Concerns Section Related Observation LastModified by Organization Detai ls LastModified Time None Recorded Concern Status LastModified by Organization Details LastModified Time None Recorded Payers Encounter Date Sequence Insurance Name Policy Number Policy Gallagher Covered Member ID Gallagher Member ID Guarantor Name 06/25/2025 1 [place] (MEDICARE REPLACEMENT PPO) [id number] Tamera Salvador [id number] Tamera Salvador OBGyn Episode No OBEpisode recorded.
== END 2025-08-06 09:12 | disposition home or self-care (01) ==
LOC: HO.HPHYS 07:34
PROVIDERS: PCP Family Medicine; Visit Provider Physical Medicine & Rehabilitation
DX: M54.2 Cervicalgia (principal); M47.812 Spondylosis without myelopathy or radiculopathy, cervical region; M79.18 Myalgia, other site; M46.1 Sacroiliitis, not elsewhere classified; M53.3 Sacrococcygeal disorders, not elsewhere classified; M70.61 Trochanteric bursitis, right hip
CPT/HCPCS: 20552; 20610; 99214

== ENCOUNTER → 2025-08-06 07:33 | Outpatient (BNVA) | payer MEDICARE, SELFPAY | PROVIDERS: PCP Family Medicine; Visit Provider Physical Medicine & Rehabilitation | DX: M70.61 Trochanteric bursitis, right hip (principal); M79.18 Myalgia, other site; M53.3 Sacrococcygeal disorders, not elsewhere classified; M54.2 Cervicalgia; M47.812 Spondylosis without myelopathy or radiculopathy, cervical region | CPT/HCPCS: 20552; 20610; 99212; J2003; J3301 ==

== ENCOUNTER 2025-08-29 07:12 | Outpatient (AMB) | payer MEDICARE, SELFPAY ==
--- OUTSIDE RECORDS SUMMARY | 2025-08-28 15:00 | XMS_ITS | Encounter Summary ---
Author Organization [facility] Address [address] [place] [address] Care Team Providers Care Transition Mgr Rn Name Role Phone Cayla Sullivan MD Primary Care Provider Reason for Referral * Orthopedic (Routine) - Pending Review Specialty Diagnoses / Procedures Referred By Contac t Referred To Contact Orthopedic Surgery / Orthopaedic Surgery Diagnoses Left knee pain, unspecified chronicity Procedures L Inj/Asp: L knee Vernell Muniz MD [address] [address] Phone: tel: fax: Referral ID Status Reason Start Date Expiration Date V isits Requested Visits Authorized [id number] Pending Review 08/28/2025 08/28/2026 1 1 * Consultation (Routine) - Pending Review Specialty Diagnoses / Procedures Referred By Contac t Referred To Contact Physical Therapy Diagnoses Left knee pain, unspecified chronicity Vernell Muniz MD [address] [address] Phone: tel: fax: Referral ID Status Reason Start Date Expiration Date Visits Requested Visits Authorized [id number] Pending Review Specialty Services Required 08/28/2025 08/28/2026 1 1 Reason for Visit * Reason Comments Consult Left knee pain * Consultation (Routine) - Authorized Specialty Diagnoses / Procedures Referred By Contact Referred To Contact Orthopaedics / Orthopaedic Surgery Diagnoses Acute pain of left knee Cayla Sullivan MD [address] [place] [address] Phone: tel: fax: Orthopedic Surgery [facility] [address] [facility] [address] [place] [address] Phone: tel: fax: Referral ID Status Reason Start Date Expiration Date Visits Requested Visits Authorized [id number] Authorized Specialty Services Required 08/15/2026 3 3 Encounter Details Date Type Department Care Team (Late st Contact Info) Description 08/28/2025 3:00 PM EST Office Visit Orthopedic Surgery [facility] 160 175 [facility] [address] [place] [phone] Vernell Muniz MD 175 [facility] [address] [place] [address] Left knee pain, unspecified chronicity (Primary Dx) Social History Tobacco Use Types Packs/Day Years Used Date Smoking Tobacco: Former Cigarettes 1.5 21 0 09/25/1973 - 09/25/1994 Smokeless Tobacco: Never Alcohol Use Standard Drinks/Week [...] care for your loved ones. For example, exceptional children's teacher or elderly care for an older adult? [...] Orientation Straight 10/08/2024 6: 42 AM EST documented as of this encounter Last Filed Vital Signs Vital Sign Reading Time Taken Comments Blood Pressure - - Pulse - - Temperature - - Respiratory Rate - - Oxygen Saturation - - Inhaled Oxygen Concentration - - Weight 78.5 kg (173 lb) 08/28/2025 2:50 PM EST Height 165.5 cm (5' 5.16 ) 08/28/2025 2:50 PM ES T Body Mass Index 28.65 08/28/2025 2:50 PM EST documented in this encounter Functional Status * Are you deaf or do you have serious difficulty hearing? Answer Date of Assessment Author No 06/19/2025 10:41 AM Annabelle Cavazos RN * Are you blind or do you have serious difficulty seeing, even when wearing glasses? Answer Date of Assessment Author No 06/19/2025 10:41 AM Annabelle Cavazos RN * Do you have serious difficulty walking or climbing stairs? Answer Date of Assessment Author No 06/19/2025 10:41 AM Annabelle Cavazos RN * Do you have serious difficulty dressing or bathing? Answer Date of Assessment Author No 06/19/2025 10:41 AM Annabelle Cavazos RN * Because of a physical, mental, or emotional condition, do you have serious difficulty doing errandsalone such as visiting the doctor? Answer Date of Assessment Author No 06/19/2025 10:41 AM Annabelle Cavazos RN documented as of this encounter Mental Status * Because of a physical, mental, or emotional condition, do you have serious difficulty concentrating, remembering, or making decisions? (5 years old or older) Answer Entry Date Author No 06/19/2025 10:41 AM Annabelle Cavazos RN documented in this encounter Ordered Prescriptions Prescription Sig Dispense Quantity Refills Last Filled Start Date End Date acetaminophen (TYLENOL 8 HOUR) 650 mg 8 hr tablet Take 1 tablet (650 mg total) by mouth every 8 (eight) hours if needed for mild pain or moderate pain. Do not crush, chew, or split. 90 tablet 3 08/28/2025 documented in this encounter Progress Notes * Vernell Muniz MD - 08/28/2025 3:00 PM ESTAssociated Order(s): L Inj/Asp: L knee Post-Procedure Diagnose(s): Left knee pain, unspecified chronicity Tamera Salvador CC: Chief Complaint Patient presents with Consult Left knee pain HPI: This is a 64 y.o. -year-old female referred to the [facility] by Wendi Sullivan* for assessment of knee pain. Daria states that her left knee had bothered her for a little while. Not painful exactly but just did not feel right then on July 25 she was walking in her bedroom and went to walk around the end of her bed when she twisted with the weight on her left foot and the knee buckled and she fell. She states she did note swelling following this. Since then she notes a sharp shooting pain on the medial aspect of the knee 7 out of 10 in intensity with rest this can increase to 8-9 out of 10 with activity. She states ibuprofen and rest make it better and any prolonged walking or twisting makes it worse. She does have a significant past medical history for a left knee injury and a meniscus tear in 1995 following a skiing accident. She states they did repair the meniscus but she also states they took out some torn pieces. ROS: Constitutional: no fever Eyes: negative for redness, drainage ENT: negative for ear pain or discharge Cardiovascular: negative for pain Respiratory: no cough GI: no vomiting or diarrhea, stomach ache, change in BMs : normal voiding Musculoskeletal: see HPI Skin: no rash Neurologic: negative for headache, dizziness The remainder of the systems is noncontributory PMH: Patient Active Problem List Diagnosis Date Noted Chronic sinusitis 09/19/2024 Atopic dermatitis 04/28/2024 Perennial allergic rhinitis 08/11/2023 Gastritis 06/29/2023 Hiatal hernia with GERD and esophagitis 06/29/2023 Pulmonary nodules 06/29/2023 Anxiety 09/06/2022 Depressive disorder 09/06/2022 Acute maxillary sinusitis 08/31/2022 Bilateral temporomandibular joint pain 08/31/2022 Otalgia of both ears 08/31/2022 Elevated blood sugar 06/21/2022 Chronic sacroiliac pain 04/30/2021 Osteoarthritis of lumbosacral spine with radiculopathy 04/30/2021 Colon polyps 08/24/2020 Neck pain, chronic 09/24/2019 Epiphora due to insufficient drainage 10/08/2018 Shoulder instability, left 07/30/2018 Chronic rhinitis 07/30/2018 Asthma 03/30/2016 Hyperlipidemia 03/30/2016 Acne 03/22/2016 Goiter 03/22/2016 Herpes simplex infection of genitourinary system 03/22/2016 Hot flashes 03/22/2016 Insomnia 03/22/2016 Major depressive disorder, recurrent episode, moderate (CMS/HCC V24, CMS/HCC V28) 03/22/2016 Migraine without status migrainosus, not intractable 03/22/2016 PSH: Surgical History[1] Medications: Current Medications[2] Allergies: Allergies[3] SHx: Social History Tobacco Use Smoking status: Former Current packs/day: 0.00 Average packs/day: 1.5 packs/day for 21.0 years (31.5 ttl pk-yrs) Types: Cigarettes Start date: 09/25/1973 Quit date: 09/25/1994 Years since quittin.9 Smokeless tobacco: Never Substance Use Topics Alcohol use: No FHx: Family History[4] Physical Exam: Visit Vitals Ht 1.655 m (65.16 ) Wt 78.5 kg (173 lb) BMI 28.65 kg/m?? OB Status Postmenopausal Smoking Status Former BSA 1.86 m?? Gen: No acute distress. Pleasant Eyes: PERRL, EOMI ENT: Mucous membranes moist Resp:Normal respiratory effort Lymphatics: No noted lymphadenopathy MSK: Knee Exam: Left Inspection: No genu varus or valgus noted. 1+ effusion. Normal gait. Palpations: mild medial joint line tenderness to palpation. Patella facets - pos tenderness to palpation. MCL: nl. LCL: nl. DistalITB: nl. Patella tendon: nl. Pes Anserine: tendons: nl, bursa: nl. Strength: 5/5. ROM-full. Varus stress at 20 degree and full extension - nl. Valgus stress at at 20 degree and full extension - nl. Special testing: Ant. Drawer - nl. Post. Drawer - nl. Lachmen's - nl. . Quad. Activation - nl. . Be's - pos . Patella compression - neg. Neurovascular: Sensation to light touch: Intact and symmetric. DTR: Intact and symmetric. Peripheral pulses: Intact and symmetric. Cap. Refill: brisk. Radiographic/Imagin nonweightbearing views of the knee obtained in July were reviewed. Additional weightbearing PA Vora was obtained today and reviewed On the weightbearing PA Vora there is moderate medial joint space loss with subchondral sclerosis. No significant patellofemoral joint space loss or spurring All images are stored and permanently retrievable Assessment: 1) left knee pain secondary to osteoarthritis greatest in the medial compartment and likely degenerative meniscus tearing. I discussed initial conservative treatment for osteoarthritis including activity modification, weight loss use of bbbn-yal-ktubkfk medications such as Tylenol and anti-inflammatories as needed. I also discussed importance of physical therapy and strengthening. I reviewed injection therapies for mild to moderate arthritis including corticosteroid injections and viscosupplementation injections. I discussed risks and benefits of corticosteroid injection and she agrees and wishes to proceed. L Inj/Asp: L knee Indications: pain Details: 22 G needle, anterolateral approach Medications: 4 mL lidocaine 1 %; 40 mg triamcinolone acetonide 40 mg/mL Informed Consent: Laterality: Left Relevant images/test results available and reviewed: yes Health status cleared: Yes Procedure/treatment, purpose, treatment alternatives, risks/potential complications and benefits explained: yes Risk/complications/benefits details: Risks include bleeding, infection, increase in pain Patient questions answered: yes Patient agrees, verbalizes understanding, and wants to proceed: yes Consent given by: Patient Informed consent discussion completed by Physician/LUIS M with patient: Verbal Pre-procedure timeout performed: yes Plan: 1) Advised to take it easy for the next 24 to 48 hours. 2) May ice and use Tylenol or NSAIDs for postinjection soreness 3) Advised to call the office for any severe increase in pain, redness, swelling or bruising. 4) Refer to PT to begin rehab 5) Follow up in 6 to 8 weeks or sooner if symptoms worsen. If she has relief following steroid injection we discussed trialing viscosupplementation as a next step Significant amount of additional workup and evaluation of medical records, reviewing x-rays and appropriate weightbearing films, discussing diagnosis and treatment options and electing to perform intra-articular knee injection. All of the patient's questions were answered. The patient understand and feels comfortable with thecurrent care plan. Thanks for allowing me to be a part of the patient's care team! Please feel free to contact me for any reason. Sincerely, Vernell Muniz MD. ON 08/28/2025 at 3:49 PM EST Answers submitted by the patient for this visit: Lower Extremity Injury Questionnaire (Submitted on 08/27/2025) Chief Complaint: Lower extremity pain Incident occurred: more than 1 week ago Incident location: at home Injury mechanism: a fall Pain location: left knee Pain quality: shooting Pain - numeric: 8/10 Pain course: worsening tingling: No inability to bear weight: Yes loss of motion: No loss of sensation: No muscle weakness: No Foreign body present: no foreign bodies Aggravated by: movement, palpation, weight bearing [1] Past Surgical History: Procedure Laterality Date BUNIONECTOMY PROCEDURE: BUNION SURGERY, SIMPLE REMOVAL CHOLECYSTECTOMY 1992 PROCEDURE: HISTORICAL CHOLECYSTECTOMY COLONOSCOPY 07/22/2010 PROCEDURE: HISTORICAL COLONOSCOPY COLONOSCOPY 10/2023 rpt 5 years OTHER SURGICAL HISTORY Left PROCEDURE: ARTHROSCOPY PROCEDURE NEC; COMMENT: meniscus repair OTHER SURGICAL HISTORY Left 02/02/2011 PROCEDURE: NE CLSD TX CLAVICULAR FRACTURE W/O MANIPULATION OTHER SURGICAL HISTORY 2008 PROCEDURE: NE SLING OPERATION STRESS INCONTINENCE; COMMENT: Taylor Harding [2] Current Outpatient Medications: acetaminophen (TYLENOL 8 HOUR) 650 mg 8 hr tablet, Take 1 tablet (650 mg total) by mouth every 8 (eight) hours if needed for mild pain or moderate pain. Do not crush, chew, or split., Disp: 90 tablet, Rfl: 3 albuterol HFA (ProAir HFA) 90 mcg/actuation inhaler, Inhale 2 Puffs into the lungs 4 times daily asneeded for Cough or Wheezing., Disp: , Rfl: atorvastatin (LIPITOR) 10 mg tablet, Take 1 tablet (10 mg total) by mouth 1 (one) time each day., Disp: 90 tablet, Rfl: 1 buPROPion XL (WELLBUTRIN XL) 300 mg 24 hr tablet, Take 1 tablet (300 mg total) by mouth 1 (one) time each day in the morning. Dose increase. Do not crush, chew, or split., Disp: 30 each, Rfl: 2 calcium carbonate (OS-JANETTE) 1,250 mg (500 mg elemental calcium) tablet, TAKE 1 TABLET BY MOUTH EVERYDAY, Disp: 90 tablet, Rfl: 1 cholecalciferol (VITAMIN D-3) 50 mcg (2,000 unit) capsule, Take 1 capsule (2,000 Units total) by mouth 1 (one) time each day., Disp: , Rfl: conjugated estrogens (Premarin) vaginal cream, , Disp: , Rfl: Dupixent Pen 300 mg/2 mL pen, Inject 2 mL (300 mg total) under the skin every 14 (fourteen) days., Disp: , Rfl: EPINEPHrine (EPIPEN) 0.3 mg/0.3 mL injection, INJECT 1 PEN INTRAMUSCULARLY NEEDED FOR ANAPHYLAXIS, Disp: , Rfl: estradioL (ESTRACE) 0.01 % (0.1 mg/gram) vaginal cream, Please use 0.5g (a pea- sized amount) on your finger and place inside the vagina for 2 weeks at night, and then decrease to twice a week at night (Mondays and ), Disp: 42.5 g, Rfl: 3 famotidine (PEPCID) 20 mg tablet, Take 1 tablet (20 mg total) by mouth 2 (two) times a day., Disp: 180 each, Rfl: 3 fluoride, sodium, 1.1 % paste, BRUSH YOUR TEETH 2 TIMES A DAY USING TOOTHPASTE, Disp: , Rfl: fluticasone propionate (FLONASE) 50 mcg/actuation nasal spray, INSTILL 1 SPRAY INTO EACH NOSTRIL 1 TIME PER DAY. SHAKE GENTLY. AFTER USE, CLEAN TIP AND REPLACE CAP, Disp: 48 mL, Rfl: 0 losartan (Cozaar) 50 mg tablet, Take 1 tablet (50 mg total) by mouth 1 (one) time each day., Disp: 90 tablet, Rfl: 1 sertraline (ZOLOFT) 100 mg tablet, TAKE 1 TABLET BY MOUTH TWICE A DAY, Disp: 180 tablet, Rfl: 1 traZODone (DESYREL) 100 mg tablet, TAKE 2 TABLETS BY MOUTH AT BEDTIME, Disp: 180 tablet, Rfl: 1 [3] Allergies Allergen Reactions Cat Dander Dog Dander House Dust Penicillins Yeast infection Pollen Extracts [4] Family History Problem Relation Name Age of Onset Lung cancer Maternal Grandmother Hypertension Mother Other (Other: hemochromatosis) Mother COPD Mother Hyperlipidemia Mother Stroke Mother Heart attack Mother Hypertension Father Coronary artery disease Father Diabetes Father Other (Other: Other) Brother hemochromatosis Breast cancer Mother's side aunt 72.00 Breast cancer Other cousin age 49 49.00 Breast cancer Aunt documented in this encounter Plan of Treatment Upcoming Encounters Date Type Department Care Team (Late st Contact Info) Description 09/24/2025 1:30 PM EST Office Visit Urogynecology [facility] [address] [place] [address] Eloisa Alexander MD [address] [place] [address] [place] [address] 09/26/2025 2:45 PM EST Office Visit Adult Medicine - [place] [address] [place] [address] Pedro Pablo Kong, PA [address] [place] [address] 10/09/2025 4:00 PM EST Office Visit Orthopedic Surgery - [place] 160 175 [facility] [address] [place] [address] Vernell Muniz MD 175 [facility] [address] [place] [address] 02/20/2026 2:40 PM EDT Office Visit Gastroenterology - 299 [facility] 299 [facility] [address] [place] [address] Gill Nolen, TIM 299 [facility] [address] [place] [address] Scheduled Referrals Name Type Priority Associated Diagnoses Order Schedule Ambulatory referral to Physical Therapy and Athletic Training Outpatient Referral Routine Left knee pain, unspecified chronicity 1 Occurrences starting 08/28/2025 until 08/28/2026 documented as of this encounter Procedures Procedure Name Priority Date/Time Associated Diagnosis Comments NE ARTHROCENTESIS/ASPI RATION/INJECTION MAJOR JOINT/BURSA W/O U/S GUIDANCE Routine 08/28/2025 3:00 PM EST Left knee pain, unspecified chronicity documented in this encounter Results * XR Knee 1-2 Views Left (08/28/2025 3:21 PM EST) Anatomical Region Laterality Modality Lower Extremities, Knee Left Computed Radiography 08/28/2025 6:55 PM EST Impressions 08/28/2025 6:58 PM EST Moderate joint space narrowing in the left medial compartment. -------- FINAL REPORT -------- Dictated By: Carolyn Ugarte Dictated Date: 08/28/2025 18:55 ET Assigned Physician: Carolyn Ugarte Reviewed and Electronically Signed By: Carolyn Ugarte Signed Date: 08/28/2025 18:58 ET Workstation ID: [id number] Transcribed By: Self Edit Transcribed Date: 08/28/2025 18:55 ET Narrative 08/28/2025 6:58 PM EST EXAM: Left knee x-ray HISTORY: Left knee pain. COMPARISON: 08/15/2025 VIEWS: PA Vora view of the knees performed. FINDINGS: Moderate joint space narrowing in the left medial compartment. Left lateral joint space is maintained. Mild joint space narrowing in the medial compartment of the right knee. No acute fracture detected. No destructive bone lesion. Procedure Note Carolyn Ugarte MD - 08/28/2025 EXAM: Left knee x-ray HISTORY: Left knee pain. COMPARISON: 08/15/2025 VIEWS: PA Vora view of the knees performed. FINDINGS: Moderate joint space narrowing in the left medial compartment. Leftlateral joint space is maintained. Mild joint space narrowing in themedial compartment of the right knee. No acute fracture detected. Nodestructive bone lesion. IMPRESSION: Moderate joint space narrowing in the left medial compartment. -------- FINAL REPORT -------- Dictated By: Carolyn Ugarte Dictated Date: 08/28/2025 18:55 ET Assigned Physician: Carolyn Ugarte Reviewed and Electronically Signed By: Carolyn Ugarte Signed Date: 08/28/2025 18:58 ET Workstation ID: [id number] Transcribed By: Self Edit Transcribed Date: 08/28/2025 18:55 ET us Vernell Muniz MD IMG XR PROCEDURES Final Result * NE ARTHROCENTESIS/ASPIRATION/INJECTION MAJOR JOINT/BURSA W/O U/S GUIDANCE (08/28/2025 3:00 PM EST) Narrative Vernell Muniz MD - 08/28/2025 3:00 PM EST Vernell Muniz MD 08/28/2025 3:55 PM L Inj/Asp: L knee Indications: pain Details: 22 G needle, anterolateral approach Medications: 4 mL lidocaine 1 %; 40 mg triamcinolone acetonide 40 mg/mL Informed Consent: Laterality: Left Relevant images/test results available and reviewed: yes Health status cleared: Yes Procedure/treatment, purpose, treatment alternatives, risks/potential complications and benefits explained: yes Risk/complications/benefits details: Risks include bleeding, infection, increase in pain Patient questions answered: yes Patient agrees, verbalizes understanding, and wants to proceed: yes Consent given by: Patient Informed consent discussion completed by Physician/LUIS M with patient: Verbal Pre-procedure timeout performed: yes us Vernell Muniz MD IN CLINIC/BEDSIDE ORDERABLES F inal Result documented in this encounter Visit Diagnoses Diagnosis Left knee pain, unspecified chronicity- Primary documented in this encounter Administered Medications Inactive Administered Medications - up to 3 most recent administrations Medication Order MAR Action Action Date Dose Rate Site lidocaine (XYLOCAINE) 1 % injection 4 mL 4 mL, Once PRN Procedure, Starting on Heavenly 08/28/25 at 1500, For 1 doseIndications:Left knee pain, unspecified chronicity Given 08/28/2025 3:00 PM EST 4 mL triamcinolone acetonide (KENALOG-40) 40 mg/mL injection 40 mg 40 mg, Once PRN Procedure, Starting on Heavenly 08/28/25 at 1500, For 1 doseIndications:Left knee pain, unspecified chronicity Given 08/28/2025 3:00 PM EST 40 mg documented in this encounter Orders Outpatient Referral Count Last Ordered Date st Ordered Date AMB REFERRAL TO ORTHOPEDIC 1 08/28/2025 documented in this encounter Additional Health Concerns Assessment Noted Time PHQ-9 Depression Total Score: 0 01/01/20 25 3:10 PM EDT documented as of this encounter Care Teams Transition Mgr Rn Relationship Specialty Start Date End Date Cayla Sullivan MD [address] [address] PCP - General Internal Medicine 04/28/22 documented as of this encounter
[2025-08-29 07:15] VITALS: PULSE 93; TEMP 36.2; BMI 26.8
--- NOTE | 2025-08-29 07:15 | A.PHYSOV ---
Vital Signs 08/29/25 07:15 Height 5 ft 6 in Weight 166 lb BMI 26.8 Pulse 93 Temp 97.2 F Intake Visit Reasons: Left Sacroiliac Joint Injection Intake Note: Patient is a 64 year old female in office today for a right sacroiliac joint injection. 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 Geological Required: No Allergies Penicillins Allergy (Unknown, Verified 08/29/25 07:18) Unknown PFS Medical History Hx of heartburn Hx of renal calculi Anxiety and depression Asthma Shoulder pain, left Back pain Myofascial pain syndrome Spondylosis of cervical region without myelopathy or radiculopathy Cervicalgia Surgical History History of shoulder surgery History of knee surgery Hx of colonoscopy Hx laparoscopic cholecystectomy Social History Patient Tobacco Use Status: Former Tobacco user Physical Exam Vital Signs: Last Vital Signs Temp 97.2 F 08/29/25 07:15 Pulse 93 08/29/25 07:15 BMI result Body Mass Index 26.8 Office Procedures AMB Sacroiliac Joint Injection AMB Sacroiliac Joint Injection Procedure Details: Procedure performed: Left sacroiliac joint injection Preop diagnosis: SI joint mediated pain, sacroiliitis Postop diagnosis: The same Anesthesia: Local After informed consent was obtained patient was brought into the procedure room and placed in prone position on the procedure table. Skin over lumbar sacral area was prepped and draped in the usual sterile manner. The inferior portion of the left sacroiliac joint was visualized utilizing fluoroscopy. 3.5 in 22 gauge spinal needle was introduced percutaneously and advanced into the joint. Needle placement was verified utilizing 0.5 cc of Omnipaque contrast solution. 2.5 cc of therapeutic solution containing 40 mg of triamcinolone and 2% lidocaine was injected after negative aspiration for blood. The C-arm was obliqued about 30? in the contralateral direction an area just medial the proximal portion of the sacroiliac joint was visualized. 3.5 in 22 gauge spinal needle was introduced percutaneously and advanced to enter the area. Once in place, needle placement was identified utilizing 1 cc of Omnipaque contrast solution. Total volume of 2.5 cc containing 40 mg of triamcinolone and 2% lidocaine was injected to block the lateral branches at the sacroiliac ligament. Radiation exposure was documented in the chart. Sacroiliac Joint Injections [id number] - use with FL Gd order: Left All charges added?: Procedure code (CPT) selection complete Office Meds Kenalog 40 mg/mL suspension for injection Performing Provider: Christian Castellanos DO [facility] Administered by: Christian Castellanos DO on 08/29/25 07:21 Dose Route Admin Location Dispensed Lot Number Expiration Date [facility] [place] 80 mg intra-articular 2 mL [id number] [employer] Total Dispensed Waste 2 mL 0 % lidocaine (PF) 20 mg/mL (2 %) injection solution Performing Provider: Christian Castellanos DO [facility] Administ[facility] by: Christian Castellanos DO on 08/29/25 07:21 Dose Route Admin Location Dispensed Lot Number Expiration Date [facility] [place] 120 mg intra-articular 10 mL [id number] [place] [employer] Total Dispensed Waste 10 mL 40 % Omnipaque 300 300 mg iodine/mL intravenous solution Performing Provider: Christian Castellanos DO [facility] Administ[facility] by: Christian Castellanos DO on 08/29/25 07:21 Dose Route Admin Location Dispensed Lot Number Expiration Date [facility] [place] 3 mL intra-articular 10 mL [id number] [employer] Total Dispensed Waste 10 mL 70 % Assessment & Plan Assessment & Plan (1) Sacroiliitis: Code(s): M46.1 - Sacroiliitis, not elsewhere classified Category: Medical Plan: SI joint injection (2) Sacroiliac joint pain: Code(s): M53.3 - Sacrococcygeal disorders, not elsewhere classified Category: Medical Plan: SI injection Orders: Orders AMB Sacroiliac Joint Injection Today M46.1 - Sacroiliitis, not elsewhere classified, M53.3 - Sacrococcygeal disorders, not elsewhere classified [place] Guided Sacroiliac Jt Inj LT Today M46.1 - Sacroiliitis, not elsewhere classified, M53.3 - Sacrococcygeal disorders, not elsewhere classified Patient Instructions: SI injection Coding Level of Care Code Procedure Only Diagnoses Sacroiliitis M46.1 Sacroiliac joint pain M53.3 CPT Codes AMB Sacroiliac Joint Injection - Hip intraarticular Injection - : Left ([id number])
--- OUTSIDE RECORDS SUMMARY | 2025-08-29 07:15 | XMS_ITS | Encounter Summary ---
Author Organization [facility] [place] [address] Care Team Providers Care Jewel Staker Name Role Phone Cayla Sullivan MD Primary Care Provider Encounter Details Date Type Department Care Team (Late st Contact Info) Description 08/15/2025 Results Follow-Up Adult Medicine - [address] [phone] Cayla Sullivan MD [address] [place] [address] Social History Tobacco Use Types Packs/Day Years [...] for your loved ones. For example, child care sitter or elderly care for an older adult? [...] AM EST documented as of this encounter Functional Status * Are you [...] Refills Last Filled Start Date End Date atorvastatin (LIPITOR) 10 mg tablet Take 1 tablet (10 mg total) by mouth 1 (one) time each day. 90 tablet 1 08/18/2025 ciprofloxacin (CIPRO) 250 mg tabletIndications: E-coli UTI Take 1 tablet (250 mg total) by mouth 2 (two) times a day for 7 days. 14 each 08/19/2025 08/26/2025 documented in this encounter Progress Notes * Nancy Goncalves MA - 08/19/2025 4:45 PM EST Left a detailed message for pt about her results. 2 rx's was sent to her pharmacy =. Will try call her again tomorrow. documented in this encounter Plan of Treatment Upcoming Encounters Date Type Department Care Team (Late st Contact Info) Description 09/24/2025 1:30 PM EST Office Visit Urogynecology [address] [place] [address] Eloisa Alexander MD 580 [facility] 205 [place] [address] 09/26/2025 2:45 PM EST Office Visit Adult Medicine - [place] 230 [place] [phone] Pedro Pablo Kong PA [address] [place] [address] 10/09/2025 4:00 PM EST Office Visit Orthopedic Surgery - [place] [address] [facility] 160 [place] [address] Vernell Muniz MD [address] [facility] 160 [place] [address] 02/20/2026 2:40 PM EDT Office Visit Gastroenterology - 299 [facility] [address] [facility] [address] [place] [phone] Gill Nolen, TIM [address] [address] documented as of this encounter Visit Diagnoses Diagnosis E-coli UTI- Primary documented in this encounter Additional Health Concerns Assessment Noted Time PHQ-9 Depression Total Score: 0 01/01/20 25 3:10 PM EDT documented as of this encounter Care Teams Jewel Staker Relationship Specialty Start Date End Date Cayla Sullivan MD [address] [place] [address] PCP - General Internal Medicine 04/28/22 documented as of this encounter
--- OUTSIDE RECORDS SUMMARY | 2025-08-29 07:16 | XMS_ITS | Data Portability ---
Author Organization [place] - [facility], Allergy Address [address] [address] Care Team Providers Care Brief Writer Name Role Phone IRINALORENZO WEIR Primary Care Provider [phone] Assessment Encounter Date Assessment Date Assessment LastModified by Organization Details LastModified Time 03/05/2025 03/05/2025 Visit With: Rochlele Hayes Use of Antihistamines : Yes If [...] Decreased Aware of Vial Test Aware: Notes: [email or web address] Not available 06/25/2025 17:09:49 07/11/2025 07/11/2025 Tamera [...] By Organization Details Last Modified Time 07/11/2025 50714 - Discontinue allergy injections - Use Flonase [...] Address Organization Details Recorded Time Chronic rhinitis 81219685 Active 2017 Chronic rhinitis; Note: Date Diagnosed : 07/30/2018 12:02 PM (J31.0) Not Available [facility] 4 02:39:11 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 29987774 Active 2018 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, unspecifi ed lacrimal gland; Note: Date Diagnosed : 10/08/2018 12:03 PM (H04.229) Not Available [facility] 4 02:39:14 Bilateral earache 365803739 Active 2021 Otalgia, bilateral ; Note: Date Diagnosed : 08/31/2022 2:27 PM (H92.03) Otalgia , bilateral ; Note: Date Diagnosed : 07/30/2018 12:03 PM (H92.03) ; Start Date : 8 Not Available [facility] 4 02:39:28 Acute maxillary sinusitis 88223556 Active 2021 Acute maxillary sinusitis , unspecifi ed; Note: Date Diagnosed : 08/31/2022 2:33 PM (J01.00) Not Available [facility] 4 02:39:22 Bilateral temporoma ndibular joint pain [id number] 986412 Active 2021 Arthralgi a of bilateral temporoma ndibular joint; Note: Date Diagnosed : 08/31/2022 2:27 PM (M26.623) Not Available [facility] 4 02:39:12 Allergic rhinitis 56433191 Active 2022 Allergic rhinitis: Due to other [...] : 06/24/2021 3:07 PM (477. Not Available [facility] 4 01:02:06 Perennial allergic rhinitis 797040656 Active 2023 Eduardo Burks 100 [facility],[place] [address], [place], [address] , [facility] - [facility] 5 17:09:07 Chronic sinusitis 79811328 Active 2023 BRIAN JACKSON MD 100 [facility],[place] [address], [place], [address] , [facility] - [facility] 5 09:10:30 Deviated nasal septum 254638212 Active 2024 BRIAN JACKSON MD 100 [facility],[place] [address], [place], [address] , [facility] - [facility] 5 09:09:20 Problem Notes None recorded. Procedures Surgical History Date Name Laterality Status Provider Name and Address Organization Details Recorded Time 07/11/20 25 JMSNasal/Sinus Endoscopy-PRIOR surgical cavities completed BRIAN FERREIRA MD [address], [place], [address], [facility] - [facility] 07/11/2025 09:09:16 06/25/20 25 Allergy Immunotherapy Injections completed Eduardo Burks [address], [place], [address], [facility] - [facility] 06/25/2025 17:09:31 05/07/20 25 Allergy Immunotherapy Injections completed JOBY MERCADO RN [address] [facility] [place] [address], [address], [facility] - [facility] 05/07/2025 17:07:34 04/16/20 25 Allergy Immunotherapy Injections completed GOMEZ CANTORZEC, RMA [address] [place] [address], [address], [facility] - [facility] 04/16/2025 16:59:55 03/05/20 25 Allergy Immunotherapy Injections completed GOMEZ SAKSHIZEC, RMA [address] [place] [address], [address], [facility] - [facility] 03/05/2025 17:01:03 02/06/20 25 Allergy Immunotherapy Injections completed GOMEZ KORZEC, RMA [address] [place] [address], [address], [facility] - [facility] 02/05/2025 16:58:15 01/02/20 25 Allergy Immunotherapy Injections completed GOMEZ KORZEC, RMA [address], [place], [address], [facility] - [facility] 01/01/2025 17:46:59 12/05/19 25 Allergy Immunotherapy Injections completed GOMEZ KORZEC, RMA [address], [place], [address], [facility] - [facility] 12/04/2024 17:13:39 11/13/19 25 Allergy Immunotherapy Injections completed JOBY MERCADO RN [address] [facility], [place], [address], [place] [facility] 11/13/2024 16:55:31 10/02/19 25 Allergy Immunotherapy Injections completed JOBY MERCADO RN [address] [facility],[address] [place] [address], [address], [place] [facility] 10/02/2024 17:09:55 09/19/20 24 JMSNasal/Sinus Endoscopy-PRIOR surgical cavities completed BRIAN FERREIRA MD [address], [place], [address], [place] [facility] 09/19/2024 12:20:47 08/14/20 24 Allergy Immunotherapy Injections completed GOMEZ GOODMAN RMAlex [address] [facility] [address] [address] [address] [place] [address], [address], [place] [facility] 08/14/2024 16:56:13 07/24/20 24 Allergy Immunotherapy Injections completed GOMEZ GOODMAN RMAlex 100 [facility],[address] [place] [address], [address], [place] [facility] 07/24/2024 17:06:58 06/26/20 24 Allergy Immunotherapy Injections completed JOBY MERCADO RN [address] [facility],[address] [place] [address], [address], [place] [facility] 06/26/2024 17:13:16 05/08/20 24 Allergy Immunotherapy Injections completed SILVIA HERNANDEZ [address] [facility] [address] [place] [address], [address], [place] [facility] 05/08/2024 17:00:48 03/13/20 24 Allergy Immunotherapy Injections completed SILVIA HERNANDEZ [address] [facility] [address] [place] [address], [address], [place] [facility] 03/13/2024 17:11:42 02/14/20 24 Allergy Immunotherapy Injections completed SILVIA HERNANDEZ [address] [facility] [address], [place], [address], [place] [facility] 02/14/2024 17:24:04 functional endoscopic sinus surgery completed BRIAN FERREIRA MD [address], [address], [facility] 09/19/2024 12:17:31 Imaging Results None recorded. Procedure Notes None recorded. Medical Equipment None Reported. Allergies Allergen ID Allergen Name Allergen Category Reaction Reaction Severity Criticality Documentation Date Start Date Code Code System Note Provider Name and Address Organization Details Recorded Time 314865 Product containin g penicilli n (product) medicatio n Not available Not available Not available 07/11/2025 22122 8001 SNOMED Winsome tadeo [facility] 5 08:52:16 627673 cat dander environme nt Not available Not available Not available 07/11/2025 Winsome tadeo [facility] 5 08:52:22 542046 Canis lupus familiari s extract environme nt Not available Not available Not available 07/11/2025 61896 4 RxNorm Winsome tadeo [facility] 5 08:52:27 139301 house dust allergeni c extract environme nt,medica tion Not available Not available Not available 07/11/2025 87484 9 RxNorm Winsome tadeo [facility] 5 08:52:33 163125 POLLEN EXTRACTS environme nt,medica tion Not available Not available Not available 07/11/2025 79730 6 RxNorm Winsome tadeo [facility] 5 08:52:39 58029 Penicilli n Not available Not available Not available Not available 02/06/2024 17789 RxNorm BRIAN DU MD [address], [address], [facility] 4 12:09:28 Medications Name Sig Start Date Stop Date Status Note LastModified by Organization Details LastModified Time methocarb meera 500 mg tablet 03/14 completed Medicati on ID: [id number] D uration Value: 7 Brand Name: methocar bamol Se nd Method: E-Prescr ibed Sub s Allowed: subs OK Speci al Instruct ion: take 1 tablet by mouth three times a day Medi cationGe nericNam e: methocar bamol Not Available Not Available Not Available clonidine HCl 0.1 mg tablet 07/11 completed Medicati on ID: [id number] D uration Value: 30 Brand Name: clonidin e HCl Send Method: E-Prescr ibed Sub s Allowed: subs OK Medic ationGen ericName : clonidin e HCl Not Available Not Available Not Available gabapenti n 600 mg tablet 07/22 completed Medicati on ID: [id number] D uration Value: 30 Brand Name: gabapent in Send Method: E-Prescr ibed Sub s Allowed: subs OK Speci al Instruct ion: take 1 tablet by mouth three times a day Medi cationGe nericNam e: gabapent in Not Available Not Available Not Available atorvasta tin 20 mg tablet 07/11 completed Medicati on ID: [id number] D uration Value: 30 Brand Name: atorvast atin Sen d Method: E-Prescr ibed Sub s Allowed: subs OK Speci al Instruct ion: take 1 tablet by mouth once daily Me dication GenericN solo: atorvast atin Not Available Not Available Not Available sertralin e 100 mg tablet 2017 active Medicati on ID: [id number] D uration Value: 30 Brand Name: sertrali ne Send Method: E-Prescr ibed Sub s Allowed: subs OK Speci al Instruct ion: take 1 1/2 tablets by mouth once daily Me dication GenericN solo: sertrali ne Not Available Not Available Not Available sumatript an 50 mg tablet 03/14 completed Medicati on ID: [id number] D uration Value: 30 Brand Name: sumatrip to succinat e Send Method: E-Prescr ibed Sub s Allowed: subs OK Medic ationGen ericName : sumatrip to succinat e Not Available Not Available Not Available acyclovir 400 mg tablet 03/14 completed Medicati on ID: [id number] D uration Value: 30 Brand Name: acyclovi r Send Method: E-Prescr ibed Sub s Allowed: subs OK Speci al Instruct ion: take 1 tablet by mouth once daily Me dication GenericN solo: acyclovi r Not Available Not Available Not Available Vitamins B Complex capsule 11/02 completed Medicati on ID: [id number] D uration Value: 30 Brand Name: Vitamins B Complex Send Method: E-Prescr ibed Sub s Allowed: subs OK Medic ationGen ericName : Vitamins B Complex Not Available Not Available Not Available tramadol 50 mg tablet 11/02 completed Medicati on ID: [id number] D uration Value: 25 Brand Name: tramadol Send Method: E-Prescr ibed Sub s Allowed: subs OK Speci al Instruct ion: TK 1 TO 2 TS PO Q 6 H Medica tionGene ricName: tramadol Not Available Not Available Not Available clindamyc in 1 % topical gel 08/31 completed Medicati on ID: [id number] D uration Value: 20 Brand Name: clindamy michelle phosphat e Send Method: E-Prescr ibed Sub s Allowed: subs OK Medic ationGen ericName : clindamy michelle phosphat e Not Available Not Available Not Available trazodone 100 mg tablet 2017 active Medicati on ID: [id number] B rand Name: trazodon e Send Method: E-Prescr ibed Sub s Allowed: subs OK Medic ationGen ericName : trazodon e Not Available Not Available Not Available baclofen 10 mg tablet 08/31 completed Medicati on ID: [id number] D uration Value: 60 Brand Name: baclofen Send Method: E-Prescr ibed Sub s Allowed: subs OK Speci al Instruct ion: TK 2 TS PO HS AND 1 T EVERY MORNING Medicati onGeneri cName: baclofen Not Available Not Available Not Available triamcino lone acetonide 0.1 % topical ointment 03/14 completed Medicati on ID: [id number] D uration Value: 25 Brand Name: triamcin olone acetonid e Send Method: E-Prescr ibed Sub s Allowed: subs OK Medic ationGen ericName : triamcin olone acetonid e Not Available Not Available Not Available gabapenti n 300 mg capsule 11/19 completed Medicati on ID: [id number] D uration Value: 30 Reason: () Brand Name: gabapent in Send Method: E-Prescr ibed Sub s Allowed: subs OK Speci al Instruct ion: take 1 capsule by mouth three times a day Medi cationGe nericNam e: gabapent in Not Available Not Available Not Available [facility] 10 mg tablet 11/05 completed Medicati on ID: [id number] D uration Value: 30 Reason: () Brand [...] aerosol inhaler 07/11 completed Medicati on ID: [id number] D uration Value: 16 Brand Name: albutero l sulfate Send Method: E-Prescr ibed Sub s Allowed: subs OK Speci al Instruct ion: INL 2 PFS ITL Q 4 H PRF COUGH OR WHZ Medi cationGe nericNam e: albutero l sulfate Not Available Not Available Not Available spironola ctone 50 mg tablet 03/14 completed Medicati on ID: [id number] D uration Value: 30 Brand Name: spironol actone S end Method: E-Prescr ibed Sub s Allowed: subs OK Speci al Instruct ion: take 1 tablet by mouth twice a day with food Med icationG enericNa me: spironol actone Not Available Not Available Not Available amoxicill in 875 mg-potass ium clavulana te 125 mg tablet 03/14 completed Medicati on ID: [id number] B rand Name: amoxicil marlene-pot clavulan ate Send Method: E-Prescr ibed Sub s Allowed: subs OK Medic ationGen ericName : amoxicil marlene-pot clavulan ate Not Available Not Available Not Available Oyster Shell Calcium-5 00 500 mg (as carbonate 1,250 mg) tablet 2018 active Medicati on ID: [id number] D uration Value: 30 Brand Name: Oyster Shell Calcium 500 Send Method: E-Prescr ibed Sub s Allowed: subs OK Medic ationGen ericName : Oyster Shell Calcium 500 Not Available Not Available Not Available Premarin 0.625 mg/gram vaginal cream 2017 active Medicati on ID: [id number] D uration Value: 30 Brand Name: Premarin Send Method: E-Prescr ibed Sub s Allowed: subs OK Speci al Instruct ion: INSERT 2 GRAMS VAGINALL Y TWICE A WEEK Med icationG enericNa me: Premarin Not Available Not Available Not Available bupropion HCl XL 300 mg 24 hr tablet, extended release 2017 active Medicati on ID: [id number] D uration Value: 30 Brand Name: bupropio n HCl Send Method: E-Prescr ibed Sub s Allowed: subs OK Asyai al Instruct ion: TAKE 1 TABLET BY MOUTH EVERY MORNING. Medicat ionGener icName: bupropio n HCl Not Available Not Available Not Available Fish Oil 340 mg-1,000 mg capsule 2018 active Medicati on ID: [id number] D uration Value: 30 Brand Name: Fish Oil Send Method: E-Prescr ibed Sub s Allowed: subs OK Medic ationGen ericName : Fish Oil Not Available Not Available Not Available Glucosami ne Chondroit Complx Advan 750 mg-100 mg-125 mg-1.65 mg tablet 11/02 completed Medicati on ID: [id number] D uration Value: 30 Brand Name: Glucos Chond Cplx Advanced Send Method: E-Prescr ibed Sub s Allowed: subs OK Speci al Instruct ion: TK 1 T PO D Medica tionGene ricName: Glucos Chond Cplx Advanced Not Available Not Available Not Available cholecalc iferol (vitamin D3) 50 mcg (2,000 unit) capsule 2018 active Medicati on ID: [id number] D uration Value: 30 Brand Name: cholecal ciferol (vitamin D3) Send Method: E-Prescr ibed Sub s Allowed: subs OK Medic ationGen ericName : cholecal ciferol (vitamin D3) Not Available Not Available Not Available dapsone 5 % topical gel 03/14 completed Medicati on ID: [id number] B rand Name: dapsone Send Method: E-Prescr ibed Sub s Allowed: subs OK Speci al Instruct ion: APPLY THIN LAYER EXTERNAL LY TO FACE EVERY DAY IN THE MORNING Medicati onGeneri cName: dapsone Not Available Not Available Not Available Myrbetriq 25 mg tablet,ex tended release 10/15 completed Medicati on ID: [id number] B rand Name: Myrbetri q Send Method: E-Prescr ibed Sub s Allowed: subs OK Medic ationGen ericName : Myrbetri q Not Available Not Available Not Available Konsyl Sugar-Sotero e 6 gram oral powder packet 12/13 completed Medicati on ID: [id number] D uration Value: 30 Reason: () Brand Name: Konsyl Sugar-Fr ee Send Method: E-Prescr ibed Sub s Allowed: subs OK Medic ationGen ericName : Konsyl Sugar-Fr ee Not Available Not Available Not Available ProAir RespiClic k 90 mcg/actua tion breath activated 2017 active Medicati on ID: [id number] B rand Name: ProAir RespiCli ck Send [...] Updated DateTime 07/11/2025 167.64 cm 27.1 kg/m2 27148.52 g 152/80 mm[Hg] Winsome Jalloh [place] - [facility] 07/11/2025 08:58:06 Social History None recorded. [...] Disorder N Anesthesia Complications N Heart Attack (VT) N Other Skin Condition Y Diabetes N [...] IMO Codes Diagnosis Note [id number] ROCHELLE FREDDY [facility] Allergy [address] [place] [address],[address] [place] [address] 02/14/2024 16:55:15 02/14/2024 17:42:53 Perennial allergic rhinitis [id number] J30.89 [id number] ROCHELLE FREDDY [facility] Allergy [address] [place] [address],[address] [place] [address] 03/13/2024 16:47:34 03/14/2024 12:11:32 Perennial allergic rhinitis 730207890 J30.89 [id number] ROCHELLE HAYES [facility] Allergy [address] [place] [address],[address] [place] [address] 05/08/2024 16:47:07 05/08/2024 17:29:33 Perennial allergic rhinitis 479259710 J30.89 54402 [facility] Allergy 100 [facility],[address] [place] [address] 06/26/2024 17:12:15 06/26/2024 17:14:30 Perennial allergic rhinitis [id number] J30.89 12755 [facility] All[facility] [address] [place] [address],[address] [place] [address] 07/24/2024 16:50:18 07/24/2024 17:07:31 Perennial allergic rhinitis 873017376 J30.89 [id number] JOBY MERCADO RN Allergy [address] [place] [address],[address] [place] [address] 08/14/2024 16:50:34 08/14/2024 16:57:02 Perennial allergic rhinitis 575946776 J30.89 [id number] BRIAN JACKSON MD [facility] - [place] 100 [facility] [place] [place] [address] 09/19/2024 11:21:00 09/19/2024 16:26:16 Chronic sinusitis 09545218 J32.9 Allergic rhinitis 449812 04 J30.9 29748 ROCHELLE HAYES, [facility] Allergy [address] [place] [address],[address] [place] [address] 10/02/2024 16:46:18 10/02/2024 17:10:44 Perennial allergic rhinitis 819888998 J30.89 [id number] JOBY MERCADO RN Allergy [address] [place] [address], [address] [place] [address] 11/13/2024 16:46:14 11/13/2024 16:56:04 Perennial allergic rhinitis 559621727 J30.89 [id number] ROCHELLE HAYES, [facility] Allergy [address] [place] [address], [address] [place] [address] 12/04/2024 17:12:17 12/04/2024 17:14:14 Perennial allergic rhinitis 842299073 J30.89 87861 GOMEZ [facility], [facility] Allergy [address] [place] [address], [address] [place] [address] 01/01/2025 16:46:51 01/01/2025 17:47:39 Perennial allergic rhinitis 327328440 J30.89 [id number] JOBY MERCADO RN Allergy [address] [place] [address], [address] [place] [address] 02/05/2025 16:46:03 02/05/2025 16:58:33 Perennial allergic rhinitis 580630615 J30.89 [id number] ROCHELLE HAYES [facility] Allergy [address] [place] [address],[address] [place] [address] 03/05/2025 16:46:07 03/05/2025 17:01:29 Perennial allergic rhinitis 437821049 J30.89 [id number] GOMEZ DÍAZ, [facility] Allergy [address] [place] [address],[address] [place] [address] 04/16/2025 16:48:45 04/16/2025 17:00:26 Perennial allergic rhinitis 593966300 J30.89 [id number] JOBY MERCADO RN Allergy 100 [facility] 100 [place] [address] 05/07/2025 16:47:55 05/07/2025 17:08:15 Perennial allergic rhinitis [id number] J30.89 [id number] GOMEZ ARJUNReyes, RMA Allergy 100 [facility] 100 [place] [address] 06/25/2025 16:46:58 06/25/2025 17:10:05 Perennial allergic rhinitis 601882403 J30.89 [id number] BRIAN JACKSON MD [facility] [address] [place] [address] 07/11/2025 08:45:58 07/11/2025 09:10:59 Perennial allergic rhinitis 268935756 J30.89 Chronic sinusitis 122819 00 J32.9 J32.8 72903 Deviated nasal septum 12 6036553 J34.2 73900 Health Concerns Section Related Observation LastModified by Organization Detai ls LastModified Time None Recorded Concern Status LastModified by Organization Details LastModified Time None Recorded Advance Directives Directive None Recorded Payers Insurance Date Sequence Insurance Name Policy Number Policy Gallagher Covered Member ID Gallagher Member ID Guarantor Name 07/04/2024 1 [place] [id number] Dilan Ramos [id number] Tamera B Madeleine 07/03/2025 1 [place] [id number] Dilan Ramos [id number] Tamera B Madeleine 07/03/2025 1 [place] [id number] Tamera Madeleine [id number] Tamera B Madeleine 08/14/2024 1 *SELF PAY* Jose Eduardo Le Madeleine 11/20/2024 1 [facility] NET PLAN (MEDICAID HMO) [id number] Dilan Ramos [id number] Tamera B Madeleine 06/09/2024 PAYMENT PLAN Tamera Salvador 12/10/2024 1 *SELF PAY* Jose Eduardo Salvador 07/03/2025 2 [place] [id number] Tamera Salvador [id number] Tamera Salvador 07/11/2025 1 [place]MEDICARE [place]AC[place] PPO) [id number] Tamera Salvador [id number] Tamera Salvador 07/03/2025 2 [place] [employer] Tamera Salvador [id number] Tamera Salvador Notes Date Note Type [...] and does not persist. BRIAN FERREIRA MD [address] [place] [address], [address], [facility] - [facility] 07/11/2025 09:10:50 OBGyn Episode No OBEpisode recorded.
--- OUTSIDE RECORDS SUMMARY | 2025-08-29 07:16 | XMS_ITS | Continuity of Care Document ---
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 75162253 Active 2018 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, unspecifi ed lacrimal gland; Note: Date Diagnosed : 10/08/2018 12:03 PM (H04.229) Not Available [facility] 4 02:39:14 Bilateral earache 515506749 Active 2021 Otalgia, bilateral ; Note: Date Diagnosed : 08/31/2022 2:27 PM (H92.03) Otalgia , bilateral ; Note: Date Diagnosed : 07/30/2018 12:03 PM (H92.03) ; Start Date : 8 Not Available [facility] 4 02:39:28 Acute maxillary sinusitis 45209530 Active 2021 Acute maxillary sinusitis , unspecifi ed; Note: Date Diagnosed : 08/31/2022 2:33 PM (J01.00) Not Available [facility] 4 02:39:22 Bilateral temporoma ndibular joint pain [id number] 644228 Active 2021 Arthralgi a of bilateral temporoma ndibular joint; Note: Date Diagnosed : 08/31/2022 2:27 PM (M26.623) Not Available [facility] 4 02:39:12 Allergic rhinitis 31212128 Active 2022 Allergic rhinitis: Due to other [...] : 06/24/2021 3:07 PM (477. Not Available [facility] 4 01:02:06 Perennial allergic rhinitis 387978674 Active 2023 Eduardo Burks [address] [place] [address], [facility] [place], [address] , [facility] - [facility] 5 17:09:07 Chronic sinusitis 62900728 Active 2023 BRIAN JACKSON MD [address], [place], [address] , [facility] - [facility] [place] 09:10:30 Deviated nasal septum 309007895 Active 2024 BRIAN JACKSON MD [address], [place], [address] , [place] [facility] 09:09:20 Problem Notes None recorded. Procedures Surgical History Date Name Laterality Status Provider Name and Address Organization Details Recorded Time 07/11/20 25 JMSNasal/Sinus Endoscopy-PRIOR surgical cavities completed BRIAN FERREIRA MD [address], [place], [address], [place] [facility] 07/11/2025 09:09:16 06/25/20 25 Allergy Immunotherapy Injections completed Eduardo Burks [address] [facility], [place], [address], [facility] - [facility] 06/25/2025 17:09:31 05/07/20 25 Allergy Immunotherapy Injections completed JOBY MERCADO RN [address] [facility], [place], [address], [place] [facility] 05/07/2025 17:07:34 04/16/20 25 Allergy Immunotherapy Injections completed GOMEZ DÍAZC, RMA [address] [place] [address], [address], [place] [facility] 04/16/2025 16:59:55 03/05/20 25 Allergy Immunotherapy Injections completed GOMEZ DÍAZC, RMA [address], [place], [address], [place] [facility] 03/05/2025 17:01:03 02/06/20 25 Allergy Immunotherapy Injections completed GOMEZ CANTORZEC, RMA [address], [place], [address], [place] [facility] 02/05/2025 16:58:15 01/02/20 25 Allergy Immunotherapy Injections completed GOMEZ DÍAZC, RMA [address], [place], [address], [place] [facility] [place] 01/01/2025 17:46:59 12/05/19 25 Allergy Immunotherapy Injections completed GOMEZ GOODMAN A [address] [place] [address], [address], [facility] - [facility] [place] 12/04/2024 17:13:39 11/13/19 25 Allergy Immunotherapy Injections completed JOBY MERCADO RN [address] [place], [place], [address], [place] [facility] [place] 11/13/2024 16:55:31 10/02/19 25 Allergy Immunotherapy Injections completed JOBY MERCADO RN [address] [place],[address] [place] [address], [address], [place] [facility] [place] 10/02/2024 17:09:55 09/19/20 24 JMSNasal/Sinus Endoscopy-PRIOR surgical cavities completed BRIAN FERREIRA MD [address] [place],[address] [place] [address], [address], [place] [facility] [place] 09/19/2024 12:20:47 08/14/20 24 Allergy Immunotherapy Injections completed GOMEZ GOODMAN [facility] [address] [place],[address], [address], [facility] - [facility] [place] 08/14/2024 16:56:13 07/24/20 24 Allergy Immunotherapy Injections completed GOMEZ GOODMAN Alex [address] [place],[address] [place] [address], [address], [facility] - [facility] [place] 07/24/2024 17:06:58 06/26/20 24 Allergy Immunotherapy Injections completed JOBY MERCADO RN [address] [place],[address] [place] [address], [address], [place] [facility] [place] 06/26/2024 17:13:16 05/08/20 24 Allergy Immunotherapy Injections completed SILVIA HERNANDEZ [address], [place], [address], [place] [facility] [place] 05/08/2024 17:00:48 06/19/20 24 Allergy Immunotherapy Injections completed SILVIA HERNANDEZ 100 [facility],[address], [address], [place] [facility] 03/13/2024 17:11:42 02/14/20 24 Allergy Immunotherapy Injections completed SILVIA HERNANDEZ [address] [place],[facility] [address], [place], [address], [facility] - [facility] 02/14/2024 17:24:04 functional endoscopic sinus surgery completed BRIAN FERREIRA MD 100 [facility],[address], [address], [facility] - [facility] 09/19/2024 12:17:31 Imaging Results None recorded. Procedure Notes None recorded. Medical Equipment None Reported. Allergies Allergen ID Allergen Name Allergen Category Reaction Reaction Severity Criticality Documentation Date Start Date Code Code System Note Provider Name and Address Organization Details Recorded Time 234657 Product containin g penicilli n (product) medicatio n Not available Not available Not available 07/11/2025 19089 8001 SNOMED Winsome tadeo [facility] 5 08:52:16 166882 cat dander environme nt Not available Not available Not available 07/11/2025 Winsome tadeo [place] [facility] 5 08:52:22 806641 Canis lupus familiari s extract environme nt Not available Not available Not available 07/11/2025 87291 4 RxNorm Winsome tadeo [facility] 5 08:52:27 118839 house dust allergeni c extract environme nt,medica tion Not available Not available Not available 07/11/2025 47518 9 RxNorm Winsome tadeo [place] - [facility] 5 08:52:33 171022 POLLEN EXTRACTS environme nt,medica tion Not available Not available Not available 07/11/2025 64355 6 RxNorm Winsome tadeo [facility] 5 08:52:39 34987 Penicilli n Not available Not available Not available Not available 02/06/2024 36460 RxNorm BRIAN DU MD [address] [place] [address], [address] [place] [address] - [facility] 12:09:28 Medications Name Sig Start Date Stop Date Status Note LastModified by Organization Details LastModified Time methocarb meera 500 mg tablet 03/14 completed Medicati on ID: [id number] D uration Value: 7 Brand Name: methocar bamol Se nd Method: E-Prescr ibed Sub s Allowed: subs OK Speci al Instruct ion: take 1 tablet by mouth three times a day Medi cationGe nericNam e: methocar bamol Not Available Not Available Not Available clonidine HCl 0.1 mg tablet 07/11 completed Medicati on ID: [id number] D uration Value: 30 Brand Name: clonidin e HCl Send Method: E-Prescr ibed Sub s Allowed: subs OK Medic ationGen ericName : clonidin e HCl Not Available Not Available Not Available gabapenti n 600 mg tablet 07/22 completed Medicati on ID: [id number] D uration Value: 30 Brand Name: gabapent in Send Method: E-Prescr ibed Sub s Allowed: subs OK Speci al Instruct ion: take 1 tablet by mouth three times a day Medi cationGe nericNam e: gabapent in Not Available Not Available Not Available atorvasta tin 20 mg tablet 07/11 completed Medicati on ID: [id number] D uration Value: 30 Brand Name: atorvast atin Sen d Method: E-Prescr ibed Sub s Allowed: subs OK Speci al Instruct ion: take 1 tablet by mouth once daily Me dication GenericN solo: atorvast atin Not Available Not Available Not Available sertralin e 100 mg tablet 2017 active Medicati on ID: [id number] D uration Value: 30 Brand Name: sertrali ne Send Method: E-Prescr ibed Sub s Allowed: subs OK Speci al Instruct ion: take 1 1/2 tablets by mouth once daily Me dication GenericN solo: sertrali ne Not Available Not Available Not Available sumatript an 50 mg tablet 03/14 completed Medicati on ID: [id number] D uration Value: 30 Brand Name: jacky to succinat e Send Method: E-Prescr ibed Sub s Allowed: subs OK Medic ationGen ericName : jacky to succinat e Not Available Not Available Not Available acyclovir 400 mg tablet 03/14 completed Medicati on ID: [id number] D uration Value: 30 Brand Name: acyclovi r Send Method: E-Prescr ibed Sub s Allowed: subs OK Speci al Instruct ion: take 1 tablet by mouth once daily Me dication GenericN solo: acyclovi r Not Available Not Available Not Available Vitamins B Complex capsule 11/02 completed Medicati on ID: [id number] D uration Value: 30 Brand Name: Vitamins B Complex Send Method: E-Prescr ibed Sub s Allowed: subs OK Medic ationGen ericName : Vitamins B Complex Not Available Not Available Not Available tramadol 50 mg tablet 11/02 completed Medicati on ID: [id number] D uration Value: 25 Brand Name: tramadol Send Method: E-Prescr ibed Sub s Allowed: subs OK Speci al Instruct ion: TK 1 TO 2 TS PO Q 6 H Medica tionGene ricName: tramadol Not Available Not Available Not Available clindamyc in 1 % topical gel 08/31 completed Medicati on ID: [id number] D uration Value: 20 Brand Name: clindamy michelle phosphat e Send Method: E-Prescr ibed Sub s Allowed: subs OK Medic ationGen ericName : clindamy michelle phosphat e Not Available Not Available Not Available trazodone 100 mg tablet 2017 active Medicati on ID: [id number] B rand Name: trazodon e Send Method: E-Prescr ibed Sub s Allowed: subs OK Medic ationGen ericName : trazodon e Not Available Not Available Not Available baclofen 10 mg tablet 08/31 completed Medicati on ID: [id number] D uration Value: 60 Brand Name: baclofen Send Method: E-Prescr ibed Sub s Allowed: subs OK Speci al Instruct ion: TK 2 TS PO HS AND 1 T EVERY MORNING Medicati onGeneri cName: baclofen Not Available Not Available Not Available triamcino lone acetonide 0.1 % topical ointment 03/14 completed Medicati on ID: [id number] D uration Value: 25 Brand Name: triamcin olone acetonid e Send Method: E-Prescr ibed Sub s Allowed: subs OK Medic ationGen ericName : triamcin olone acetonid e Not Available Not Available Not Available gabapenti n 300 mg capsule 11/19 completed Medicati on ID: [id number] D uration Value: 30 Reason: () Brand Name: gabapent in Send Method: E-Prescr ibed Sub s Allowed: subs OK Speci al Instruct ion: take 1 capsule by mouth three times a day Medi cationGe nericNam e: gabapent in Not Available Not Available Not Available mont[address] st 10 mg tablet 11/05 completed Medicati on ID: [id number] D uration Value: 30 Reason: () Brand [...] aerosol inhaler 07/11 completed Medicati on ID: [id number] D uration Value: 16 Brand Name: albutero l sulfate Send Method: E-Prescr ibed Sub s Allowed: subs OK Speci al Instruct ion: INL 2 PFS ITL Q 4 H PRF COUGH OR WHZ Medi cationGe nericNam e: albutero l sulfate Not Available Not Available Not Available spironola ctone 50 mg tablet 03/14 completed Medicati on ID: [id number] D uration Value: 30 Brand Name: spironol actone S end Method: E-Prescr ibed Sub s Allowed: subs OK Speci al Instruct ion: take 1 tablet by mouth twice a day with food Med icationG enericNa me: spironol actone Not Available Not Available Not Available amoxicill in 875 mg-potass ium clavulana te 125 mg tablet 03/14 completed Medicati on ID: [id number] B rand Name: amoxicil marlene-pot clavulan ate Send Method: E-Prescr ibed Sub s Allowed: subs OK Medic ationGen ericName : amoxicil marlene-pot clavulan ate Not Available Not Available Not Available Oyster Shell Calcium-5 00 500 mg (as carbonate 1,250 mg) tablet 2018 active Medicati on ID: [id number] D uration Value: 30 Brand Name: Oyster Shell Calcium 500 Send Method: E-Prescr ibed Sub s Allowed: subs OK Medic ationGen ericName : Oyster Shell Calcium 500 Not Available Not Available Not Available Premarin 0.625 mg/gram vaginal cream 2017 active Medicati on ID: [id number] D uration Value: 30 Brand Name: Premarin Send Method: E-Prescr ibed Sub s Allowed: subs OK Speci al Instruct ion: INSERT 2 GRAMS VAGINALL Y TWICE A WEEK [facility] Premarin Not Available Not Available Not Available bupropion HCl XL 300 mg 24 hr tablet, extended release 2017 active Medicati on ID: [id number] D uration Value: 30 Brand Name: bupropio n HCl Send Method: E-Prescr ibed Sub s Allowed: subs OK Speci al Instruct ion: TAKE 1 TABLET BY MOUTH EVERY MORNING. Medicat ionGener icName: bupropio n HCl Not Available Not Available Not Available Fish Oil 340 mg-1,000 mg capsule 2018 active Medicati on ID: [id number] D uration Value: 30 Brand Name: Fish Oil Send Method: E-Prescr ibed Sub s Allowed: subs OK Medic ationGen ericName : Fish Oil Not Available Not Available Not Available Glucosami ne Chondroit Complx Advan 750 mg-100 mg-125 mg-1.65 mg tablet 11/02 completed Medicati on ID: [id number] D uration Value: 30 Brand Name: Glucos Chond Cplx Advanced Send Method: E-Prescr ibed Sub s Allowed: subs OK Speci al Instruct ion: TK 1 T PO D Medica tionGene ricName: Glucos Chond Cplx Advanced Not Available Not Available Not Available cholecalc iferol (vitamin D3) 50 mcg (2,000 unit) capsule 2018 active Medicati on ID: [id number] D uration Value: 30 Brand Name: cholecal ciferol (vitamin D3) Send Method: E-Prescr ibed Sub s Allowed: subs OK Medic ationGen ericName : cholecal ciferol (vitamin D3) Not Available Not Available Not Available dapsone 5 % topical gel 03/14 completed Medicati on ID: [id number] B rand Name: dapsone Send Method: E-Prescr ibed Sub s Allowed: subs OK Speci al Instruct ion: APPLY THIN LAYER EXTERNAL LY TO FACE EVERY DAY IN THE MORNING Medicati onGeneri cName: dapsone Not Available Not Available Not Available Myrbetriq 25 mg tablet,ex tended release 10/15 completed Medicati on ID: [id number] B rand Name: Myrbetri q Send Method: E-Prescr ibed Sub s Allowed: subs OK Medic ationGen ericName : Myrbetri q Not Available Not Available Not Available Konsyl Sugar-Sotero e 6 gram oral powder packet 12/13 completed Medicati on ID: [id number] D uration Value: 30 Reason: () Brand Name: Konsyl Sugar-Fr ee Send Method: E-Prescr ibed Sub s Allowed: subs OK Medic ationGen ericName : Konsyl Sugar-Fr ee Not Available Not Available Not Available ProAir RespiClic k 90 mcg/actua tion breath activated 2017 active Medicati on ID: [id number] B rand Name: ProAir RespiCli ck Send [...] Updated DateTime 07/11/2025 167.64 cm 27.1 kg/m2 14431.52 g 152/80 mm[Hg] Winsome Jalloh [place] - [facility] 07/11/2025 08:58:06 Social History None recorded. [...] Disorder N Anesthesia Complications N Heart Attack (AR) N Other Skin Condition Y Diabetes N [...] ICD10 Code Diagnosis IMO Codes Diagnosis Note [id number] GOMEZ GOODMAN [facility] Allergy [address] [place] [address] 06/25/2025 16:46:58 06/25/2025 17:10:05 Perennial allergic rhinitis [id number] J30.89 [id number] BRIAN JACKSON MD [facility] of [address] [address] 07/11/2025 08:45:58 07/11/2025 09:10:59 Perennial allergic rhinitis 440327251 J30.89 Chronic sinusitis 404054 00 J32.9 J32.8 58430 Deviated nasal septum 12 6878944 J34.2 26357 Health Concerns Section Related Observation LastModified by Organization Detai ls LastModified Time None Recorded Concern Status LastModified by Organization Details LastModified Time None Recorded Payers Encounter Date Sequence Insurance Name Policy Number Policy Gallagher Covered Member ID Gallagher Member ID Guarantor Name 07/11/2025 1 [place] (MEDICARE [place]ACEMENT PPO) [id number] Tamera Le Madeleine [id number] Tamera Salvador Notes Date Note Type [...] and does not persist. BRIAN FERREIRA MD [address] [place] [address], [address], [place] [facility] 07/11/2025 09:10:50 OBGyn Episode No OBEpisode recorded.
--- OUTSIDE RECORDS SUMMARY | 2025-08-29 07:16 | XMS_ITS | Clinical Summary ---
Author Organization [facility] Prior to 02/22/25 Address [address] [place] [address] Care Team Providers Care Die Operator Name Role Phone Kyle-Deana Miller MD Primary [...] age to complete this topic Care Teams Die Operator Relationship Specialty Start Date End Date [place]-Deana Miller MD PCP - General Internal Medicine 04/11/19
--- OUTSIDE RECORDS SUMMARY | 2025-08-29 07:16 | XMS_ITS | Clinical Summary ---
Author Organization [facility] [address] [facility] lding Address [address] [place] [address] Phone Care Team Providers Care Humid System Operator Name Role Phone Cayla Sullivan MD Primary Care Provider Allergies Active Allergy Reactions Criticality Noted Date Comments Cat Dander 11/14/2022 Dog Dander 11/14/2022 House Dust 11/28/2022 Penicillins 03/22/2016 Yeast infection Pollen Extracts 12/01/2022 Medications albuterol HFA (ProAir HFA) 90 mcg/actuation inhaler [...] TEETH 2 TIMES A DAY USING TOOTHPASTE 025 Active calcium carbonate (OS-JANETTE) 1,250 mg (500 mg elemental calcium) tablet TAKE 1 TABLET BY MOUTH EVERY DAY 90 tablet 1 025 Active sertraline (ZOLOFT) 100 mg tabletIndicat ions:Major depressive disorder, recurrent, moderate (CMS/HCC V24, CMS/HCC V28) TAKE 1 TABLET BY MOUTH TWICE A DAY 180 tablet 1 025 Active estradioL (ESTRACE) 0.01 % (0.1 mg/gram) [...] chew, or split. 30 each 2 025 Active traZODone (DESYREL) 100 mg tablet TAKE [...] AND REPLACE CAP 48 mL 025 Active losartan (Cozaar) 50 mg tablet Take 1 tablet (50 mg total) by mouth 1 (one) time each day. 90 tablet 1 025 Active atorvastatin (LIPITOR) 10 mg tablet Take 1 tablet (10 mg total) by mouth 1 (one) time each day. 90 tablet 1 025 Active acetaminophen (TYLENOL 8 HOUR) 650 mg 8 hr tablet Take 1 tablet (650 mg total) by mouth every 8 (eight) hours if needed for mild pain or moderate pain. Do not crush, chew, or split. 90 tablet 3 025 2025 Active nabumetone (RELAFEN) 750 mg tablet Take 1 tablet (750 mg total) by mouth 2 (two) times a day if needed. 2024 Discontinued(T herapy completed) fluticasone propionate (FLONASE) 50 mcg/actuation nasal sprayIndicati ons:Gastro-es ophageal reflux disease with esophagitis, without bleeding Administer 1 spray into each nostril 1 (one) time each day. Shake gently. Before first use, prime pump. After use, clean tip and replace cap. 48 g 1 025 2024 Discontinued traMADoL (ULTRAM) 50 mg tablet TAKE 1 TABLET ORAL FOUR TIMES A DAY NEEDED FOR 28 DAYS 025 2024 Discontinued(T herapy completed) cloNIDine (CATAPRES) 0.1 mg tablet 018 2024 Discontinued(T herapy completed) mupirocin (BACTROBAN) 2 % ointment APPLY TO LESIONS TWICE A DAY NEEDED UNTIL HEALED 025 2024 Discontinued(T herapy completed) ciprofloxacin (CIPRO) 250 mg tabletIndicat ions:E-coli UTI Take 1 tablet (250 mg total) by mouth 2 (two) times a day for 7 days. 14 each 025 2024 Hospital, Clinic, or Other Facility Administered Medication Ordered Dose Route Frequency Start Date End Date Status lidocaine (XYLOCAINE) 1 % injection 4 mLIndications:Left knee pain, unspecified chronicity 4 mL Once PRN Procedure 08/28/2025 08/28/2025 Ended triamcinolone acetonide (KENALOG-40) 40 mg/mL injection 40 mgIndications:Left knee pain, unspecified chronicity 40 mg Once PRN Procedure 08/28/2025 08/28/2025 Ended Active Problems Problem Noted Date Diagnosed Date [...] Encounters Date Type Department Care Team Description 08/28/2025 3:00 PM EST Office Visit Orthopedic Surgery - [place] [address] [facility] [address] [place] [phone] Vernell Muniz MD Left knee pain, unspecified chronicity (Primary Dx) 08/18/2025 7:35 AM EST Lab Draw Station - [address] [facility] [address] [place] [phone] Primary hypertension; Mixed hyperlipidemia; Chronic depression; Insomnia, unspecified type; Overactive bladder 08/15/2025 8:58 AM EST - 08/15/2025 11:59 PM EST [facility] [address] [place] [phone] Acute pain of left knee Discharge Disposition: Home or Self Care 08/15/2025 8:30 AM EST Office Visit Adult [address] [phone] Cayla Sullivan MD Primary hypertension (Primary Dx); Mixed hyperlipidemia; Chronic depression; Insomnia, unspecified type; Overactive bladder; Acute pain of left knee 08/15/2025 Results Follow-Up [address] [phone] Cayla Sullivan MD 06/26/2025 2:30 PM EDT Office Visit [address] [phone] Mitra Choi PA Difficulty paying attention (Primary Dx); Left sided abdominal pain; Insomnia, unspecified type; Moderate episode of recurrent major depressive disorder (CMS/HCC V24, CMS/HCC V28) 06/19/2025 8:22 AM EDT - 06/19/2025 12:[address] [facility] [address] [place] [phone] Osorio Wagner MD Acute left flank pain (Primary Dx) Discharge Disposition: Home or Self Care from Last 3 Months Immunizations Immunization Administration Dates Next Due Hepatitis B (Dakparv-T-Blwvf , Recombivax HB-Adult) 19yo and older 01/28/2019,09/11/2018 Influenza Quadravalent, MDCK , 0.5ml, preservative free (Flucelvax) 6mo and older 06/09/2023,06/02/2022 Influenza trivalent, 0.5mL ( Fluzone High-dose) 65yo and older 06/08/2025 Influenza trivalent, 0.5mL, preservative free (Fluarix; FluLaval; [...] CHOLECYSTECTOMY OTHER SURGICAL HISTORY 02/02/2011 Left PROCEDURE: DE CLSD TX CLAVICULAR FRACTURE W/O MANIPULATION OTHER SURGICAL HISTORY 2008 PROCEDURE: DE SLING OPERATION STRESS INCONTINENCE; COMMENT: [place], [place] BUNIONECTOMY PROCEDURE: BUNION SURGERY, SIMPLE REMOVAL COLONOSCOPY [...] for your loved ones. For example, child guidance counselor or elderly care for an older adult? [...] Sign Reading Time Taken Comments Blood Pressure 155/74 08/15/2025 8:12 AM EST Pulse 85 08/15/2025 8:12 AM EST Temperature 36.2 C (97.2 F) 08/15/2025 8:12 AM EST Respiratory Rate 16 08/15/2025 8:12 AM EST Oxygen Saturation 95% 06/19/2025 10:36 AM EDT Inhaled Oxygen Concentration - - Weight 78.5 kg (173 lb) 08/28/2025 2:50 PM EST Height 165.5 cm (5' 5.16 ) 08/28/2025 2:50 PM ES T Body Mass Index 28.65 08/28/2025 2:50 PM EST Plan of Treatment Upcoming Encounters Date Type Department Care Team (Late st Contact Info) Description 09/24/2025 1:30 PM EST Office Visit Urogynecology [address] [phone] Eloisa Alexander MD [address] [place] [phone] 09/26/2025 2:45 PM EST Office Visit Adult Medicine - [address] [phone] Pedro Pablo Kong, PA [address] [place] [address] 10/09/2025 4:00 PM EST Office Visit Orthopedic Surgery - [place] [address] [facility] [address] [place] [phone] Vernell Muniz MD [address] [facility] [address] [place] [address] 02/20/2026 2:40 PM EDT Office Visit Gastroenterology - [address] [place] [address] [facility] [address] [place] [phone] Gill Nolen, TIM [address] [facility] [address] [place] [address] Health Maintenance Due Date Last Done Comments [...] 2026 07/17/2025, 07/07/2023, 05/23/2022, Additional history exists Hypertension/CHF/CAD Annual BMP Blood Test 08/18/2026 08/18/2025, 06/19/2025, 07/26/2024, Additional history exists Cervical Cancer Screening: HPV 08/23/2026 08/23/2021 Breast Cancer Screening 11/06/2026 11/06/19 25, 06/02/2023, 05/16/2023, Additional history exists Cholesterol Screening (Lipid Panel) 08/18/2030 08/18/2025, 07/26/2024, 07/26/2024 Colorectal Cancer Screening: Colonoscopy 11/09/2033 [...] history exists Depression Screening Completed 06/20/2025, 07/26/20 24 HIB Vaccines Aged Out No longer eligi [...] Procedure Name Priority Date/Time Associated Diagnosis Comments XR KNEE 1-2 VIEWS LEFT Routine 08/28/2025 3:21 PM EST Left knee pain, unspecified chronicity DE ARTHROCENTESIS/ASPIRA TION/INJECTION MAJOR JOINT/BURSA W/O U/S GUIDANCE Routine 08/28/2025 3:00 PM EST Left knee pain, unspecified chronicity MCNEAL URINE CULTURE TUBE Routine 08/18/2025 7:43 AM EST Overactive bladder URINALYSIS WITH REFLEX MICROSCOPIC AND CULTURE Routine 08/18/2025 7:43 AM EST Overactive bladder URINALYSIS WITH REFLEX MICROSCOPIC AND CULTURE Routine 08/18/2025 7:43 AM EST Overactive bladder CULTURE URINE Routine 08/18/2025 7:43 AM EST Overactive bladder LIPID PANEL WITH REFLEX TO DIRECT LDL Routine 08/18/2025 7:37 AM EST Mixed hyperlipidemia COMPREHENSIVE METABOLIC PANEL Routine 08/18/2025 7:37 AM EST Primary hypertension Mixed hyperlipidemia Chronic depression Insomnia, unspecified type Overactive bladder XR KNEE 4+ VIEWS LEFT Routine 08/15/2025 9:14 AM EST Acute pain of left knee CT ABDOMEN PELVIS WO CONTRAST STAT 06/19/2025 [...] Encounter for screening mammogram for breast cancer HM DEPRESSION SCREENING Routine 07/26/2024 HM COLONOSCOPY Routine 11/09/2023 HPV Routine 08/23/2021 HEPATITIS C SCREENING Routine 04/15/2016 from Last 3 Months or Most Recently Relevant to Health Maintenance Results * XR Knee 1-2 Views Left [...] Signed Date: 08/28/2025 18:58 ET Workstation ID: [id number] Transcribed By: Self Edit Transcribed Date: 08/28/2025 [...] Signed Date: 08/28/2025 18:58 ET Workstation ID: [id number] Transcribed By: Self Edit Transcribed Date: 08/28/2025 18:55 ET us Vernell Muniz MD IMG XR PROCEDURES Final Result * DE ARTHROCENTESIS/ASPIRATION/INJECTION MAJOR JOINT/BURSA W/O U/S GUIDANCE (08/28/2025 [...] MD IN CLINIC/BEDSIDE ORDERABLES F inal Result * (ABNORMAL) Urinalysis with reflex microscopic and culture (08/18/2025 7:43 AM EST) Only the most recent of2 resultswithin the time period is included. Specific [place] Urine 1.017 1.003 - 1.030 LAB URINALYSIS - AUTOMATED METHOD 08/18/2025 10:36 AM [facility] pH, Urine 5.5 5.0 - 8.0 pH LAB URINALYSIS - AUTOMATED METHOD 08/18/2025 10:36 AM [facility] Leukocytes, Urine Small(A) Negative LAB URINALYSIS - AUTOMATED METHOD 08/18/2025 10:36 AM [facility] Nitrite, Urine Negative Negative LAB URINALYSIS - AUTOMATED METHOD 08/18/2025 10:36 AM [facility] Protein, Urine Negative <=Trace mg/dL LAB URINALYSIS - AUTOMATED METHOD 08/18/2025 10:36 AM [facility] Glucose, Urine Negative Negative mg/dL LAB URINALYSIS - AUTOMATED METHOD 08/18/2025 10:36 AM [facility] Ketones, Urine Negative Negative mg/dL LAB URINALYSIS - AUTOMATED METHOD 08/18/2025 10:36 AM [facility] Urobilinogen , Urine 0.2 0.2 - 1.0 mg/dL LAB URINALYSIS - AUTOMATED METHOD 08/18/2025 10:36 AM [facility] Bilirubin, Urine Negative Negative LAB URINALYSIS - AUTOMATED METHOD 08/18/2025 10:36 AM [facility] Blood, Urine Negative Negative LAB URINALYSIS - AUTOMATED METHOD 08/18/2025 10:36 AM [facility] RBC, Urine 2 0 - 4 /HPF 08/18/2025 10:36 AM [facility] WBC, Urine 12(H) 0 - 4 /HPF 08/18/2025 10:36 AM [facility] Squamous Epithelial, Urine 6 0 - 60 /LPF 08/18/2025 10:36 AM [facility] Non-Squamous Epithelial, Urine 2-5 Transitional epithelial cells. /LPF 08/18/2025 10:36 AM [facility] Bacteria, Urine Few(A) Negative /HPF 08/18/2025 10:36 AM [facility] Urine Urine specimen obtained by clean catch procedure / Unknown Non-blood Collection / Unknown 08/18/2025 7:43 AM EST 08/18/2025 10:06 AM EST Cayla Sullivan MD LAB URINE ORDERABLES F inal Result [facility] [address] [place] [address], * Mcneal urine culture tube (08/18/2025 7:43 AM EST) Only the most recent of2 resultswithin the time period is included. Extra Tube Hold for add-ons. 08/18/2025 12:02 PM [facility] Comment:Auto resulted. Urine Urine specimen obtained by clean catch procedure / Unknown Non-blood Collection / Unknown 08/18/2025 7:43 AM EST 08/18/2025 10:07 AM EST Cayla Sullivan MD LAB URINE ORDERABLES F inal Result [facility] [address] [place] [address], [place] [phone] * (ABNORMAL) Culture urine (08/18/2025 7:43 AM EST) Culture, Urine >=100,000 CFU/mL Escherichia coli(A) ISHA 08/20/2025 8:28 AM EST [facility] Comment: This is an edited result. Previous organism was Gram negative bacilli on 08/19/2025 at 1025 EST. Urine Urine specimen obtained by clean catch procedure / Unknown Non-blood Collection / Unknown 08/18/2025 7:43 AM EST 08/18/2025 10:36 AM EST Narrative [facility] - 08/20/2025 8:28 AM EST Additional colony types present in insignificant amounts. Organism Antibiotic Method Susceptibility Escherichia coli Amoxicillin/Clavulanate ISHA 4 ug/ml: Susceptible Escherichia coli Ampicillin/Sulbactam ISHA <=2 ug/ml: Susceptible Escherichia coli Piperacillin/Tazobactam ISHA <=4 ug/ml: Susceptible Escherichia coli Cefazolin (Urine) ISHA <=1 ug/ml: Susceptible Escherichia coli Cefoxitin ISHA <=4 ug/ml: Susceptible Escherichia coli Ceftazidime ISHA <=0.5 ug/ml: Susceptible Escherichia coli Ceftriaxone ISHA <=0.25 ug/ml: Susceptible Escherichia coli Cefepime ISHA <=0.12 ug/ml: Susceptible Escherichia coli Meropenem ISHA <=0.25 ug/ml: Susceptible Escherichia coli Amikacin ISHA 2 ug/ml: Susceptible Escherichia coli Gentamicin ISHA <=1 ug/ml: Susceptible Escherichia coli Ciprofloxacin ISHA <=0.06 ug/ml: Susceptible Escherichia coli Levofloxacin ISHA <=0.12 ug/ml: Susceptible Escherichia coli Nitrofurantoin ISHA <=16 ug/ml: Susceptible Escherichia coli Trimethoprim/Sulfamethoxazole ISHA <=20 ug/ml: Susceptible us Cayla Sullivan MD LAB MICROBIOLOGY - GEN ERAL ORDERABLES Final Result [facility] [address] [place] [address], [place] [phone] * (ABNORMAL) Lipid panel with reflex to direct LDL (08/18/2025 7:37 AM EST) Cholesterol 215(H) 0 - 200 mg/dL 08/18/2025 10:55 AM EST [facility] Triglycerides 163(H) 0 - 150 mg/dL 08/18/2025 10:55 AM EST [facility] HDL 66 >=40 mg/dL 08/18/2025 10:55 AM [facility] LDL Calculated 116(H) 0 - 100 mg/dL 08/18/2025 10:55 AM [facility] Comment:Estimated LDL Calcul ated using equation: Total cholesterol - HDL cholesterol - (Triglycerides/5) VLDL Cholesterol Janette 32.6 mg/dL 08/18/2025 10:55 AM [facility] Non HDL Chol. (LDL+VLDL) 149(H) <145 mg/dL 08/18/2025 10:55 AM [facility] Chol/HDL Ratio 3.3 0.0 - 4.4 08/18/2025 10:55 AM [facility] Blood Venous blood specimen / Unknown Venipuncture / Unknown 08/18/2025 7:37 AM EST 08/18/2025 10:04 AM EST us Cayla Sullivan MD LAB BLOOD ORDERABLES F inal Result [facility] [address] [place] [address], [place] [phone] * (ABNORMAL) Comprehensive metabolic panel (08/18/2025 7:37 AM EST) Only the most recent of2 resultswithin the time period is included. Sodium 141 133 - 145 mmol/L 08/18/2025 10:55 AM [facility] Potassium 3.9 3.5 - 5.5 mmol/L 08/18/2025 10:55 AM [facility] Chloride 102 96 - 110 mmol/L 08/18/2025 10:55 AM [facility] CO2 31 21 - 32 mmol/L 08/18/2025 10:55 AM [facility] Anion Gap 8 3 - 11 08/18/2025 10:55 AM [facility] Glucose 94 70 - 100 mg/dL 08/18/2025 10:55 AM [facility] BUN 15 5 - 25 mg/dL 08/18/2025 10:55 AM [facility] Creatinine 0.90 0.50 - 1.10 mg/dL 08/18/2025 10:55 AM [facility] eGFR 71 >=60 mL/min/1. 73m2 08/18/2025 10:55 AM [facility] Comment:Calculation based on the Chronic Kidney Disease Epidemiology Collaboration (CKD-EPI) equation refit without adjustment for race. BUN/Creatinine Ratio 16.7 08/18/2025 10:55 AM [facility] Calcium 8.9 8.5 - 10.5 mg/dL 08/18/2025 10:55 AM [facility] AST (SGOT) 21 10 - 42 unit/L 08/18/2025 10:55 AM [facility] ALT (SGPT) 20 10 - 60 unit/L 08/18/2025 10:55 AM [facility] Alkaline Phosphatase 123(H) 42 - 121 unit/L 08/18/2025 10:55 AM [facility] Total Protein 6.4 6.0 - 8.0 g/dL 08/18/2025 10:55 AM EST [facility] Albumin 3.8 3.2 - 5.0 g/dL 08/18/2025 10:55 AM EST [facility] Total Bilirubin 0.4 0.0 - 1.4 mg/dL 08/18/2025 10:55 AM EST [facility] Blood Venous blood specimen / Unknown Venipuncture / Unknown 08/18/2025 7:37 AM EST 08/18/2025 10:04 AM EST us Cayla Sullivan MD LAB BLOOD ORDERABLES F inal Result [facility] [address] [place] [address], [place] [phone] * XR Knee 4+ Views Left (08/15/2025 9:14 AM EST) Anatomical Region Laterality Modality Lower Extremities, Knee Left Radiogra phic Imaging 08/15/2025 10:3 1 AM EST Impressions 08/15/2025 10:32 AM EST No acute bony abnormality. Mild medial compartmental joint space narrowing. -------- FINAL REPORT -------- Dictated By: Sanjiv Barrera Dictated Date: 08/15/2025 10:31 ET Assigned Physician: Sanjiv Barrera Reviewed and Electronically Signed By: Sanjiv Barrera Signed Date: 08/15/2025 10:32 ET Workstation ID: [id number] Transcribed By: Self Edit Transcribed Date: 08/15/2025 10:31 ET Narrative 08/15/2025 10:32 AM EST HISTORY: left knee pain TECHNIQUE: 6 views of the left knee COMPARISON: None FINDINGS: No acute fracture or dislocation is seen. There is no joint effusion present. There is mild medial compartmental joint space narrowing. Soft tissues are unremarkable. Procedure Note Sanjiv Barrera MD - 08/15/2025 HISTORY: left knee pain TECHNIQUE: 6 views of the left knee COMPARISON: None FINDINGS: No acute fracture or dislocation is seen. There is no joint effusionpresent. There is mild medial compartmental joint space narrowing. Softtissues are unremarkable. IMPRESSION: No acute bony abnormality. Mild medial compartmental joint spacenarrowing. -------- FINAL REPORT -------- Dictated By: Sanjiv Barrera Dictated Date: 08/15/2025 10:31 ET Assigned Physician: Sanjiv Barrera Reviewed and Electronically Signed By: Sanjiv Barrera Signed Date: 08/15/2025 10:32 ET Workstation ID: [id number] Transcribed By: Self Edit Transcribed Date: 08/15/2025 10:31 ET us Cayla Sullivan MD IMG XR PROCEDURES Alla l Result * CT Abdomen Pelvis wo Contrast (06/19/2025 [...] Signed Date: 06/19/2025 11:29 ET Workstation ID: [id number] Transcribed By: Self Edit Transcribed Date: 06/19/2025 10:59 ET Narrative 06/19/2025 11:29 AM EDT INDICATION: Left flank pain TECHNIQUE: CT scan of the abdomen and pelvis obtained utilizing the renal stone protocol therefore no intravenous or oral contrast was administered. Scanner: [employer] 64 slice VCT Dose reduction technique: ASIR [...] no intravenous or oral contrast wasadministered. Scanner: [employer] 64 slice VCT Dose reduction technique: ASIR [...] Signed Date: 06/19/2025 11:29 ET Workstation ID: [id number] Transcribed By: Self Edit Transcribed Date: 06/19/2025 10:59 ET Osorio Wagner MD IM CT PROCEDURES Final Result * (ABNORMAL) CBC auto differential (06/19/2025 9:20 AM EDT) WBC 6.6 4.8 - 10.8 K/mcL LAB HEMETOLOGY METHOD 06/19/2025 9:39 AM T [facility] RBC 3.70(L) 3.80 - 4.80 M/mcL LAB HEMETOLOGY METHOD 06/19/2025 9:39 AM [facility] Hemoglobin 11.4(L) 11.5 - 16.0 [...] 06/19/2025 9:39 AM [facility] Basophils Relative 0.3 % LAB HEMETOLOGY METHOD 06/19/2025 9:39 AM [facility] Immature Granulocytes Relative 0.3 % LAB HEMETOLOGY METHOD 06/19/2025 9:39 AM [facility] Neutrophils Absolute 4.19 1.50 - 7.00 K/mcL LAB HEMETOLOGY METHOD 06/19/2025 9:39 AM [facility] Lymphocytes Absolute 1.66 1.00 - 5.00 K/mcL LAB HEMETOLOGY METHOD 06/19/2025 9:39 AM [facility] Monocytes Absolute 0.56 0.20 - 1.00 K/mcL LAB HEMETOLOGY METHOD 06/19/2025 9:39 AM [facility] Eosinophils Absolute 0.11 0.00 - 0.50 K/mcL LAB HEMETOLOGY METHOD 06/19/2025 9:39 AM [facility] Basophils Absolute 0.02 0.00 - 0.20 K/mcL LAB HEMETOLOGY METHOD 06/19/2025 9:39 AM EDT [facility] Immature Granulocytes Absolute 0.02 0.00 - 0.03 K/[facility] LAB HEMETOLOGY METHOD 06/19/2025 9:39 AM EDT [facility] Blood Venous blood specimen / Unknown Venipuncture / Unknown 06/19/2025 9:20 AM EDT 06/19/2025 9:28 AM EDT us Demario BARR LAB BLOOD ORDERABLES Final R esult [facility] [address] [place] [address], * BD Bone Density DXA Axial Skeleton (02/13/2025 1:36 PM EDT) Anatomical Region Laterality Modality Wrist, Hip, L-spine Bone Densito metry 02/14/2025 8:03 AM EDT Impressions 02/14/2025 8:04 AM EDT 1. Osteopenia. 2. FRAX analysis yields a 10-year probability of major osteoporotic fracture of 14.6% and a 10-year probability of hip fracture of 1.8%. Code 60130 -------- FINAL REPORT -------- Dictated By: Mert Wells Dictated Date: 02/14/2025 08:03 ET Assigned Physician: Mert Wells Reviewed and Electronically Signed By: Mert Wells Signed Date: 02/14/2025 08:04 ET Workstation ID: [id number] Transcribed By: Self Edit Transcribed Date: 02/14/2025 [...] is diagnostic of osteopenia. Procedure Note Mert Wlels MD - 02/14/2025 HISTORY: The patient is [...] density of the femurs bilaterally is 0.947 gm/ou1zvqwa is 94% of that of young normals [...] probability of hip fracture of 1.8%. Code 43812 -------- FINAL REPORT -------- Dictated By: Mert Wells Dictated Date: 02/14/2025 08:03 ET Assigned Physician: Mert Wells Reviewed and Electronically Signed By: Mert Wells Signed Date: 02/14/2025 08:04 ET Workstation ID: [id number] Transcribed By: Self Edit Transcribed Date: 02/14/2025 [...] -------- FINAL REPORT -------- Dictated By: MICHELE RUBIN Dictated Date: 11/07/2024 09:29 ET Assigned Physician: MICHELE RUBIN Reviewed and Electronically Signed By: MICHELE RUBIN Signed Date: 11/07/2024 09:37 ET Workstation ID: [id number] Transcribed By: Self Edit Transcribed Date: 11/07/2024 09:29 ET Narrative 11/07/2024 9:37 AM EST EXAM: MAMMO DIGITAL SCREENING W KULDIP BILAT EXAM DATE AND TIME: 11/06/2024 7:25 AM HISTORY: Screening COMPARISON: 06/02/2023 through 01/19/2022 TECHNIQUE: Bilateral digital breast tomosynthesis was performed in the MLO projection. Computer aided detection with iCAD ProFound AI 3D 3.1 was employed. TISSUE DENSITY: a: The breasts are almost entirely fatty. FINDINGS: There is no evidence of suspicious mass, unusual calcifications, or architectural distortion. Procedure Note Michele Rubin MD - 11/07/2024 EXAM: MAMMO DIGITAL SCREENING W KULDIP BILAT EXAM DATE AND TIME: 11/06/2024 7:25 AM HISTORY: Screening COMPARISON: 06/02/2023 through 01/19/2022 TECHNIQUE: Bilateral digital breast tomosynthesis was performed in the MLOprojection. Computer aided detection with iCAD ProFound AI 3D 3.1 wasemployed. TISSUE DENSITY: a: The breasts are almost entirely fatty. FINDINGS: There is no evidence of suspicious mass, unusual calcifications, orarchitectural distortion. IMPRESSION: No mammographic evidence of malignancy. BI-RADS: Category 1: Negative RECOMMENDATION(S): Routine screening mammogram BILATERAL in 1 year. -------- FINAL REPORT -------- Dictated By: MICHELE RUBIN Dictated Date: 11/07/2024 09:29 ET Assigned Physician: MICHELE RUBIN Reviewed and Electronically Signed By: MICHELE RUBIN Signed Date: 11/07/2024 09:37 ET Workstation ID: [id number] Transcribed By: Self Edit Transcribed Date: 11/07/2024 09:29 ET Self Referral Sppl IMG BI PROCEDURES Final Resul t * Depression Screening (07/26/2024) [facility] Depression Screening ABSTRACTED [facility] Provider [place] HEALTH MAINTENANCE Final Result * Colonoscopy (11/09/2023) [facility] Colonoscopy NO INTERPRETATION , ABSTRACTED Anatomical Region Laterality Modality Other [facility] Provider AL HEALTH MAINTENANCE Final Result * Cervical Cancer Screening: HPV (08/23/2021) [facility] Cervical Cancer Screening: HPV NEGATIVE, ABSTRACTED [facility] Provider [employer] HEALTH MAINTENANCE Final Result * Hepatitis C Screening (04/15/2016) [facility] Hepatitis C Screening ABSTRACTED [facility] Provider AL HEALTH MAINTENANCE Final Result from Last 3 Months or Most Recently Relevant to Health Maintenance Insurance MEDICARE BLUE CROSS - [place] MEDICARE ADVANTAGE Care Teams Humid System Operator Relationship Specialty Start Date End Date Cayla Sullivan MD [address] [place] [id number] PCP - General Internal Medicine 04/28/22
--- OUTSIDE RECORDS SUMMARY | 2025-08-29 07:16 | XMS_ITS ---
Author Name [facility] Organization Unknown Encounters Encounter Type Encounter Reason Primary Diagnosis Location Date Ambulatory [facility] 10/20/2024 Ambulatory [facility] 10/05/2024 Ambulatory [facility] 09/06/2022 Care Team Organization Name Specialty Phone Email Start Date End Da te [facility] Cayla Sullivan MD Primary Care 11/30/2022 05/13/2024 [facility] John Landry Primary Care 08/02/20222023
--- OUTSIDE RECORDS SUMMARY | 2025-08-29 07:16 | XMS_ITS | Continuity of Care Document ---
Author Organization [place] - [facility], Allergy Address [address] [address] Care Team Providers Care Senior Director Of [employer] Name Role Phone LORENZO BRUNO Primary Care Provider [phone] Assessment Encounter Date Assessment Date Assessment LastModified [...] Decreased Aware of Vial Test Aware: Notes: [email or web address] Not available 06/25/2025 17:09:49 Plan of Treatment [...] Address Organization Details Recorded Time Chronic rhinitis 80844457 Active 2017 Chronic rhinitis; Note: Date Diagnosed : 07/30/2018 12:02 PM (J31.0) Not Available [facility] 4 02:39:11 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 43735835 Active 2018 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, unspecifi ed lacrimal gland; Note: Date Diagnosed : 10/08/2018 12:03 PM (H04.229) Not Available [facility] 4 02:39:14 Bilateral earache 403117754 Active 2021 Otalgia, bilateral ; Note: Date Diagnosed : 08/31/2022 2:27 PM (H92.03) Otalgia , bilateral ; Note: Date Diagnosed : 07/30/2018 12:03 PM (H92.03) ; Start Date : 8 Not Available [facility] 4 02:39:28 Acute maxillary sinusitis 08242507 Active 2021 Acute maxillary sinusitis , unspecifi ed; Note: Date Diagnosed : 08/31/2022 2:33 PM (J01.00) Not Available [facility] 4 02:39:22 Bilateral temporoma ndibular joint pain [id number] 686176 Active 2021 Arthralgi a of bilateral temporoma ndibular joint; Note: Date Diagnosed : 08/31/2022 2:27 PM (M26.623) Not Available [facility] 4 02:39:12 Allergic rhinitis 79855622 Active 2022 Allergic rhinitis: Due to other [...] : 06/24/2021 3:07 PM (477. Not Available [facility] 4 01:02:06 Perennial allergic rhinitis 118416656 Active 2023 Eduardo Burks [address] [place] [address],[place] [address], [place], [address] , [facility] - [facility] 5 17:09:07 Chronic sinusitis 03721892 Active 2023 BRIAN JACKSON MD [address] [place], [place] [address], [address] , [facility] - [facility] 5 09:10:30 Deviated nasal septum 361322320 Active 2024 BRIAN JACKSON MD [address] [place] [address],[place] [address], [place], [address] , [facility] - [facility] 5 09:09:20 Problem Notes None recorded. Procedures Surgical History Date Name Laterality Status Provider Name and Address Organization Details Recorded Time 07/11/20 25 JMSNasal/Sinus Endoscopy-PRIOR surgical cavities completed BRIAN FERREIRA MD [address] [place] [address],[place] [address], [place], [address], [facility] - [facility] 07/11/2025 09:09:16 06/25/20 25 Allergy Immunotherapy Injections completed Eduardo Burks [address] [place] [address],[address], [place], [address], [place] - [facility] 06/25/2025 17:09:31 05/07/20 25 Allergy Immunotherapy Injections completed JOBY MERCADO RN [address], [place], [address], [place] [facility] 05/07/2025 17:07:34 04/16/20 25 Allergy Immunotherapy Injections completed GOMEZ KORZEC, RMA [address], [place], [address], [place] [facility] 04/16/2025 16:59:55 03/05/20 25 Allergy Immunotherapy Injections completed GOMEZ KORZEC, RMA [address], [place], [address], [place] [facility] 03/05/2025 17:01:03 02/06/20 25 Allergy Immunotherapy Injections completed GOMEZ ARJUNC, RMA [address], [place], [address], [place] [facility] 02/05/2025 16:58:15 01/02/20 25 Allergy Immunotherapy Injections completed GOMEZ KORZEC, RMA [address], [place], [address], [place] [facility] 01/01/2025 17:46:59 12/05/19 25 Allergy Immunotherapy Injections completed GOMEZ KORZEC, RMA [address], [place], [address], [place] [facility] 12/04/2024 17:13:39 11/13/19 25 Allergy Immunotherapy Injections completed JOBY MERCADO RN [address], [place], [address], [place] [facility] 11/13/2024 16:55:31 10/02/19 25 Allergy Immunotherapy Injections completed JOBY MERCADO RN [address], [place], [address], [place] [facility] 10/02/2024 17:09:55 09/19/20 24 JMSNasal/Sinus Endoscopy-PRIOR surgical cavities completed BRIAN FERREIRA MD [facility] [place],[address] [place] [address], [address], [facility] - [facility] 09/19/2024 12:20:47 08/14/20 24 Allergy Immunotherapy Injections completed GOMEZ GOODMAN RMA [address] [facility] [address], [address], [facility] - [facility] 08/14/2024 16:56:13 07/24/20 24 Allergy Immunotherapy Injections completed GOMEZ GOODMAN A [facility] [place],[address] [place] [address], [address], [facility] - [facility] 07/24/2024 17:06:58 06/26/20 24 Allergy Immunotherapy Injections completed JOBY MERCADO RN [address] [facility] [place],[address], [address], [facility] - [facility] 06/26/2024 17:13:16 05/08/20 24 Allergy Immunotherapy Injections completed SILVIA HERNANDEZ [address] [facility] [place],[address] [place] [address], [address], [facility] - [facility] 05/08/2024 17:00:48 03/13/20 24 Allergy Immunotherapy Injections completed SILVIA HERNANDEZ [address] [facility] [place],[address], [address], [facility] - [facility] 03/13/2024 17:11:42 02/14/20 24 Allergy Immunotherapy Injections completed SILVIA HERNANDEZ [address] [facility] [place],[address], [address], [facility] - [facility] 02/14/2024 17:24:04 functional endoscopic sinus surgery completed BRIAN FERREIRA MD [address] [facility] [place],[address] [place] [address], [address], [facility] - [facility] 09/19/2024 12:17:31 Imaging Results None recorded. Procedure Notes None recorded. Medical Equipment None Reported. Allergies Allergen ID Allergen Name Allergen Category Reaction Reaction Severity Criticality Documentation Date Start Date Code Code System Note Provider Name and Address Organization Details Recorded Time 921330 Product containin g penicilli n (product) medicatio n Not available Not available Not available 07/11/2025 17169 8001 SNOMED Winsome Shubham [place], [place] - [facility] 5 08:52:16 760172 cat dander environme nt Not available Not available Not available 07/11/2025 Winsome Jalloh [place], [place] - [facility] 5 08:52:22 205489 Canis lupus familiari s extract environme nt Not available Not available Not available 07/11/2025 78507 4 RxNorm Winsome Jalloh [place], [place] - [facility] 5 08:52:27 419767 house dust allergeni c extract environme nt,medica tion Not available Not available Not available 07/11/2025 88355 9 RxNorm Winsome Jalloh [place], [place] - [facility] 5 08:52:33 081289 POLLEN EXTRACTS environme nt,medica tion Not available Not available Not available 07/11/2025 16706 6 RxNorm Winsome tadeo, [place] - [facility] 5 08:52:39 28543 Penicilli n Not available Not available Not available Not available 02/06/2024 91706 RxNorm BRIAN DU MD [address] [place] [address], [address] [place] [address] - [facility] 4 12:09:28 Medications Name Sig Start Date Stop Date Status Note LastModified by Organization Details LastModified Time methocarb meera 500 mg tablet 03/14 completed Medicati on ID: [id number] D uration Value: 7 Brand Name: methocar bamol Se nd Method: E-Prescr ibed Sub s Allowed: subs OK Speci al Instruct ion: take 1 tablet by mouth three times a day Medi cationGe nericNam e: methocar bamol Not Available Not Available Not Available clonidine HCl 0.1 mg tablet 07/11 completed Medicati on ID: [id number] D uration Value: 30 Brand Name: clonidin e HCl Send Method: E-Prescr ibed Sub s Allowed: subs OK Medic ationGen ericName : clonidin e HCl Not Available Not Available Not Available gabapenti n 600 mg tablet 07/22 completed Medicati on ID: [id number] D uration Value: 30 Brand Name: gabapent in Send Method: E-Prescr ibed Sub s Allowed: subs OK Speci al Instruct ion: take 1 tablet by mouth three times a day Medi cationGe nericNam e: gabapent in Not Available Not Available Not Available atorvasta tin 20 mg tablet 07/11 completed Medicati on ID: [id number] D uration Value: 30 Brand Name: atorvast atin Sen d Method: E-Prescr ibed Sub s Allowed: subs OK Speci al Instruct ion: take 1 tablet by mouth once daily Me dication GenericN solo: atorvast atin Not Available Not Available Not Available sertralin e 100 mg tablet 2017 active Medicati on ID: [id number] D uration Value: 30 Brand Name: sertrali ne Send Method: E-Prescr ibed Sub s Allowed: subs OK Speci al Instruct ion: take 1 1/2 tablets by mouth once daily Me dication GenericN solo: sertrali ne Not Available Not Available Not Available sumatript an 50 mg tablet 03/14 completed Medicati on ID: [id number] D uration Value: 30 Brand Name: sumatrip to succinat e Send Method: E-Prescr ibed Sub s Allowed: subs OK Medic ationGen ericName : sumatrip to succinat e Not Available Not Available Not Available acyclovir 400 mg tablet 03/14 completed Medicati on ID: [id number] D uration Value: 30 Brand Name: acyclovi r Send Method: E-Prescr ibed Sub s Allowed: subs OK Speci al Instruct ion: take 1 tablet by mouth once daily Me dication GenericN solo: acyclovi r Not Available Not Available Not Available Vitamins B Complex capsule 11/02 completed Medicati on ID: [id number] D uration Value: 30 Brand Name: Vitamins B Complex Send Method: E-Prescr ibed Sub s Allowed: subs OK Medic ationGen ericName : Vitamins B Complex Not Available Not Available Not Available tramadol 50 mg tablet 11/02 completed Medicati on ID: [id number] D uration Value: 25 Brand Name: tramadol Send Method: E-Prescr ibed Sub s Allowed: subs OK Speci al Instruct ion: TK 1 TO 2 TS PO Q 6 H Medica tionGene ricName: tramadol Not Available Not Available Not Available clindamyc in 1 % topical gel 08/31 completed Medicati on ID: [id number] D uration Value: 20 Brand Name: clindamy michelle phosphat e Send Method: E-Prescr ibed Sub s Allowed: subs OK Medic ationGen ericName : clindamy michelle phosphat e Not Available Not Available Not Available trazodone 100 mg tablet 2017 active Medicati on ID: [id number] B rand Name: trazodon e Send Method: E-Prescr ibed Sub s Allowed: subs OK Medic ationGen ericName : trazodon e Not Available Not Available Not Available baclofen 10 mg tablet 08/31 completed Medicati on ID: [id number] D uration Value: 60 Brand Name: baclofen Send Method: E-Prescr ibed Sub s Allowed: subs OK Speci al Instruct ion: TK 2 TS PO HS AND 1 T EVERY MORNING Medicati onGeneri cName: baclofen Not Available Not Available Not Available triamcino lone acetonide 0.1 % topical ointment 03/14 completed Medicati on ID: [id number] D uration Value: 25 Brand Name: triamcin olone acetonid e Send Method: E-Prescr ibed Sub s Allowed: subs OK Medic ationGen ericName : triamcin olone acetonid e Not Available Not Available Not Available gabapenti n 300 mg capsule 11/19 completed Medicati on ID: [id number] D uration Value: 30 Reason: () Brand Name: gabapent in Send Method: E-Prescr ibed Sub s Allowed: subs OK Speci al Instruct ion: take 1 capsule by mouth three times a day Medi cationGe nericNam e: gabapent in Not Available Not Available Not Available [facility] [facility] 10 mg tablet 11/05 completed Medicati on ID: [id number] D uration Value: 30 Reason: () Brand [...] aerosol inhaler 07/11 completed Medicati on ID: [id number] D uration Value: 16 Brand Name: albutero l sulfate Send Method: E-Prescr ibed Sub s Allowed: subs SUSANNE Speci al Instruct ion: INL 2 PFS ITL Q 4 H PRF COUGH OR WHZ Medi cationGe nericNam e: albutero l sulfate Not Available Not Available Not Available spironola ctone 50 mg tablet 03/14 completed Medicati on ID: [id number] D uration Value: 30 Brand Name: spironol actone S end Method: E-Prescr ibed Sub s Allowed: subs SUSANNE Martin al Instruct ion: take 1 tablet by mouth twice a day with food Med icationG enericNa me: spironol actone Not Available Not Available Not Available amoxicill in 875 mg-potass ium clavulana te 125 mg tablet 03/14 completed Medicati on ID: [id number] B rand Name: amoxicil marlene-pot clavulan ate Send Method: E-Prescr ibed Sub s Allowed: subs OK Medic ationGen ericName : amoxicil marlene-pot clavulan ate Not Available Not Available Not Available Oyster Shell Calcium-5 00 500 mg (as carbonate 1,250 mg) tablet 2018 active Medicati on ID: [id number] D uration Value: 30 Brand Name: Oyster Shell Calcium 500 Send Method: E-Prescr ibed Sub s Allowed: subs OK Medic ationGen ericName : Oyster Shell Calcium 500 Not Available Not Available Not Available Premarin 0.625 mg/gram vaginal cream 2017 active Medicati on ID: [id number] D uration Value: 30 Brand Name: Premarin Send Method: E-Prescr ibed Sub s Allowed: subs OK Speci al Instruct ion: INSERT 2 GRAMS VAGINALL Y TWICE A WEEK Med icarejiG yuIzabela me: Premarin Not Available Not Available Not Available bupropion HCl XL 300 mg 24 hr tablet, extended release 2017 active Medicati on ID: [id number] D uration Value: 30 Brand Name: bupropio n HCl Send Method: E-Prescr ibed Sub s Allowed: subs OK Speci al Instruct ion: TAKE 1 TABLET BY MOUTH EVERY MORNING. Medicat ionGener icName: bupropio n HCl Not Available Not Available Not Available Fish Oil 340 mg-1,000 mg capsule 2018 active Medicati on ID: [id number] D uration Value: 30 Brand Name: Fish Oil Send Method: E-Prescr ibed Sub s Allowed: subs OK Medic ationGen ericName : Fish Oil Not Available Not Available Not Available Glucosami ne Chondroit Complx Advan 750 mg-100 mg-125 mg-1.65 mg tablet 11/02 completed Medicati on ID: [id number] D uration Value: 30 Brand Name: Glucos Chond Cplx Advanced Send Method: E-Prescr ibed Sub s Allowed: subs OK Speci al Instruct ion: TK 1 T PO D Medica tionGene ricName: Glucos Chond Cplx Advanced Not Available Not Available Not Available cholecalc iferol (vitamin D3) 50 mcg (2,000 unit) capsule 2018 active Medicati on ID: [id number] D uration Value: 30 Brand Name: cholecal ciferol (vitamin D3) Send Method: E-Prescr ibed Sub s Allowed: subs OK Medic ationGen ericName : cholecal ciferol (vitamin D3) Not Available Not Available Not Available dapsone 5 % topical gel 03/14 completed Medicati on ID: [id number] B rand Name: dapsone Send Method: E-Prescr ibed Sub s Allowed: subs OK Speci al Instruct ion: APPLY THIN LAYER EXTERNAL LY TO FACE EVERY DAY IN THE MORNING Medicati onGeneri cName: dapsone Not Available Not Available Not Available Myrbetriq 25 mg tablet,ex tended release 10/15 completed Medicati on ID: [id number] B rand Name: Mak q Send Method: E-Prescr ibed Sub s Allowed: subs OK Medic ationGen ericName : Myrbetri q Not Available Not Available Not Available Konsyl Sugar-Sotero e 6 gram oral powder packet 12/13 completed Medicati on ID: [id number] D uration Value: 30 Reason: () Brand Name: Konsyl Sugar-Fr ee Send Method: E-Prescr ibed Sub s Allowed: subs OK Medic ationGen ericName : Konsyl Sugar-Fr ee Not Available Not Available Not Available ProAir RespiClic k 90 mcg/actua tion breath activated 2017 active Medicati on ID: [id number] B rand Name: ProAir RespiCli ck Send [...] Disorder N Anesthesia Complications N Heart Attack (NC) N Other Skin Condition Y Diabetes N [...] ICD10 Code Diagnosis IMO Codes Diagnosis Note [id number] GOMEZ GOODMAN, RMA Allergy 100 [facility] 100 [facility] [place] [address] 06/25/2025 16:46:58 06/25/2025 17:10:05 Perennial allergic rhinitis [id number] J30.89 Health Concerns Section Related Observation LastModified by Organization Detai ls LastModified Time None Recorded Concern Status LastModified by Organization Details LastModified Time None Recorded Payers Encounter Date Sequence Insurance Name Policy Number Policy Gallagher Covered Member ID Gallagher Member ID Guarantor Name 06/25/2025 1 [place]: MEDICARE PPO BLUE (MEDICARE REPLACEMENT PPO) [id number] Tamera Salvador [id number] Tamera Salvador OBGyn Episode No OBEpisode recorded.
== END 2025-08-29 07:20 | disposition home or self-care (01) ==
LOC: HO.HPHYS 07:12
PROVIDERS: PCP Family Medicine; Visit Provider Physical Medicine & Rehabilitation
DX: M46.1 Sacroiliitis, not elsewhere classified (principal); M53.3 Sacrococcygeal disorders, not elsewhere classified
CPT/HCPCS: 27096

== ENCOUNTER 2025-08-29 07:12 | Outpatient (REF) | payer MEDICARE, SELFPAY ==
--- OUTSIDE RECORDS SUMMARY | 2025-08-29 07:22 | XMS_ITS | Data Portability ---
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 Name Role Phone IRINALORENZO WEIR Primary Care Provider Assessment Encounter Date Assessment [...] Decreased Aware of Vial Test Aware: Notes: [email or web address] Not available 06/25/2025 17:09:49 07/11/2025 07/11/2025 Tamera [...] By Organization Details Last Modified Time 07/11/2025 45839 - Discontinue allergy injections - Use Flonase [...] Address Organization Details Recorded Time Chronic rhinitis 99135966 Active 2017 Chronic rhinitis; Note: Date Diagnosed : 07/30/2018 12:02 PM (J31.0) Not Available [facility] 4 02:39:11 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 10129033 Active 2018 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, unspecifi ed lacrimal gland; Note: Date Diagnosed : 10/08/2018 12:03 PM (H04.229) Not Available [facility] 4 02:39:14 Bilateral earache 074389478 Active 2021 Otalgia, bilateral ; Note: Date Diagnosed : 08/31/2022 2:27 PM (H92.03) Otalgia , bilateral ; Note: Date Diagnosed : 07/30/2018 12:03 PM (H92.03) ; Start Date : 8 Not Available [facility] 4 02:39:28 Acute maxillary sinusitis 06457977 Active 2021 Acute maxillary sinusitis , unspecifi ed; Note: Date Diagnosed : 08/31/2022 2:33 PM (J01.00) Not Available [facility] 4 02:39:22 Bilateral temporoma ndibular joint pain [id number] 923890 Active 2021 Arthralgi a of bilateral temporoma ndibular joint; Note: Date Diagnosed : 08/31/2022 2:27 PM (M26.623) Not Available [facility] 4 02:39:12 Allergic rhinitis 49290752 Active 2022 Allergic rhinitis: Due to other [...] : 06/24/2021 3:07 PM (477. Not Available [facility] 4 01:02:06 Perennial allergic rhinitis 774417154 Active [address] [facility],[place] [address], [place], [address] , [facility] - [facility] 5 17:09:07 Chronic sinusitis 64874164 Active 2023 BRIAN JACKSON MD [address] [facility],[place] [address], [place], [address] , [facility] - [facility] 5 09:10:30 Deviated nasal septum 212248569 Active 2024 BRIAN JACKSON MD [address] [facility],[place] [address], [place], [address] , [facility] - [facility] 5 09:09:20 Problem Notes None recorded. Procedures Surgical History Date Name Laterality Status Provider Name and Address Organization Details Recorded Time 07/11/20 25 JMSNasal/Sinus Endoscopy-PRIOR surgical cavities completed BRIAN FERREIRA MD [address], [place], [address], [facility] - [facility] 07/11/2025 09:09:16 06/25/20 25 Allergy Immunotherapy Injections completed Eduardo Burks [address], [place], [address], [facility] - [facility] 06/25/2025 17:09:31 05/07/20 25 Allergy Immunotherapy Injections completed JOBY MERCADO RN [address] [place] [address], [phone], [facility] - [facility] 05/07/2025 17:07:34 04/16/20 25 Allergy Immunotherapy Injections completed GOMEZ CANTORZEC, RMA [address] [place] [address], [phone], [facility] - [facility] 04/16/2025 16:59:55 03/05/20 25 Allergy Immunotherapy Injections completed GOMEZ SAKSHIZEC, RMA [address] [place] [address], [phone], [facility] - [facility] 03/05/2025 17:01:03 02/06/20 25 Allergy Immunotherapy Injections completed GOMEZ KORZEC, RMA [address] [place] [address], [phone], [facility] - [facility] 02/05/2025 16:58:15 01/02/20 25 Allergy Immunotherapy Injections completed GOMEZ KORZEC, RMA [address], [place], [address], [facility] - [facility] 01/01/2025 17:46:59 12/05/19 25 Allergy Immunotherapy Injections completed GOMEZ KORZEC, RMA [address], [place], [address], [facility] - [facility] 12/04/2024 17:13:39 11/13/19 25 Allergy Immunotherapy Injections completed JOBY MERCADO RN [address], [place], [address], [place] [facility] 11/13/2024 16:55:31 10/02/19 25 Allergy Immunotherapy Injections completed JOBY MERCADO RN [address] [facility] [address] [place] [address], [phone], [place] [facility] 10/02/2024 17:09:55 09/19/20 24 JMSNasal/Sinus Endoscopy-PRIOR surgical cavities completed BRIAN FERREIRA MD [address], [place], [address], [place] [facility] 09/19/2024 12:20:47 08/14/20 24 Allergy Immunotherapy Injections completed GOMEZ GOODMAN RMAlex [address] [place] [address], [phone], [place] [facility] 08/14/2024 16:56:13 07/24/20 24 Allergy Immunotherapy Injections completed GOMEZ GOODMAN RMAlex [address] [facility] [address] [place] [address], [phone], [place] [facility] 07/24/2024 17:06:58 06/26/20 24 Allergy Immunotherapy Injections completed JOBY MERCADO RN [address] [facility] [address] [place] [address], [phone], [place] [facility] 06/26/2024 17:13:16 05/08/20 24 Allergy Immunotherapy Injections completed SILVIA HERNANDEZ [address] [place] [address], [address], [place] [facility] 05/08/2024 17:00:48 03/13/20 24 Allergy Immunotherapy Injections completed SILVIA HERNANDEZ [address] [place] [address], [phone], [place] [facility] 03/13/2024 17:11:42 02/14/20 24 Allergy Immunotherapy Injections completed SILVIA HERNANDEZ [address], [place], [address], [place] [facility] 02/14/2024 17:24:04 functional endoscopic sinus surgery completed BRIAN FERREIRA MD [address], [address], [facility] 09/19/2024 12:17:31 Imaging Results None recorded. Procedure Notes None recorded. Medical Equipment None Reported. Allergies Allergen ID Allergen Name Allergen Category Reaction Reaction Severity Criticality Documentation Date Start Date Code Code System Note Provider Name and Address Organization Details Recorded Time 316117 Product containin g penicilli n (product) medicatio n Not available Not available Not available 07/11/2025 59862 8001 SNOMED Winsome tadeo [facility] 5 08:52:16 886210 cat dander environme nt Not available Not available Not available 07/11/2025 Winsome tadeo [facility] 5 08:52:22 098892 Canis lupus familiari s extract environme nt Not available Not available Not available 07/11/2025 16050 4 RxNorm Winsome tadeo [facility] 5 08:52:27 282797 house dust allergeni c extract environme nt,medica tion Not available Not available Not available 07/11/2025 05373 9 RxNorm Winsome tadeo [facility] 5 08:52:33 482434 POLLEN EXTRACTS environme nt,medica tion Not available Not available Not available 07/11/2025 03955 6 RxNorm Winsome tadeo [facility] 5 08:52:39 79133 Penicilli n Not available Not available Not available Not available 02/06/2024 24139 RxNorm BRIAN DU MD [address], [address], [facility] 4 12:09:28 Medications Name Sig Start Date Stop Date Status Note LastModified by Organization Details LastModified Time methocarb meera 500 mg tablet 03/14 completed Medicati on ID: [id number] D uration Value: 7 Brand Name: methocar bamol Se nd Method: E-Prescr ibed Sub s Allowed: subs OK Speci al Instruct ion: take 1 tablet by mouth three times a day Medi cationGe nericNam e: methocar bamol Not Available Not Available Not Available clonidine HCl 0.1 mg tablet 07/11 completed Medicati on ID: [id number] D uration Value: 30 Brand Name: clonidin e HCl Send Method: E-Prescr ibed Sub s Allowed: subs OK Medic ationGen ericName : clonidin e HCl Not Available Not Available Not Available gabapenti n 600 mg tablet 07/22 completed Medicati on ID: [id number] D uration Value: 30 Brand Name: gabapent in Send Method: E-Prescr ibed Sub s Allowed: subs OK Speci al Instruct ion: take 1 tablet by mouth three times a day Medi cationGe nericNam e: gabapent in Not Available Not Available Not Available atorvasta tin 20 mg tablet 07/11 completed Medicati on ID: [id number] D uration Value: 30 Brand Name: atorvast atin Sen d Method: E-Prescr ibed Sub s Allowed: subs OK Speci al Instruct ion: take 1 tablet by mouth once daily Me dication GenericN solo: atorvast atin Not Available Not Available Not Available sertralin e 100 mg tablet 2017 active Medicati on ID: [id number] D uration Value: 30 Brand Name: sertrali ne Send Method: E-Prescr ibed Sub s Allowed: subs OK Speci al Instruct ion: take 1 1/2 tablets by mouth once daily Me dication GenericN solo: sertrali ne Not Available Not Available Not Available sumatript an 50 mg tablet 03/14 completed Medicati on ID: [id number] D uration Value: 30 Brand Name: sumatrip to succinat e Send Method: E-Prescr ibed Sub s Allowed: subs OK Medic ationGen ericName : sumatrip to succinat e Not Available Not Available Not Available acyclovir 400 mg tablet 03/14 completed Medicati on ID: [id number] D uration Value: 30 Brand Name: acyclovi r Send Method: E-Prescr ibed Sub s Allowed: subs OK Speci al Instruct ion: take 1 tablet by mouth once daily Me dication GenericN solo: acyclovi r Not Available Not Available Not Available Vitamins B Complex capsule 11/02 completed Medicati on ID: [id number] D uration Value: 30 Brand Name: Vitamins B Complex Send Method: E-Prescr ibed Sub s Allowed: subs OK Medic ationGen ericName : Vitamins B Complex Not Available Not Available Not Available tramadol 50 mg tablet 11/02 completed Medicati on ID: [id number] D uration Value: 25 Brand Name: tramadol Send Method: E-Prescr ibed Sub s Allowed: subs OK Speci al Instruct ion: TK 1 TO 2 TS PO Q 6 H Medica tionGene ricName: tramadol Not Available Not Available Not Available clindamyc in 1 % topical gel 08/31 completed Medicati on ID: [id number] D uration Value: 20 Brand Name: clindamy michelle phosphat e Send Method: E-Prescr ibed Sub s Allowed: subs OK Medic ationGen ericName : clindamy michelle phosphat e Not Available Not Available Not Available trazodone 100 mg tablet 2017 active Medicati on ID: [id number] B rand Name: trazodon e Send Method: E-Prescr ibed Sub s Allowed: subs OK Medic ationGen ericName : trazodon e Not Available Not Available Not Available baclofen 10 mg tablet 08/31 completed Medicati on ID: [id number] D uration Value: 60 Brand Name: baclofen Send Method: E-Prescr ibed Sub s Allowed: subs OK Speci al Instruct ion: TK 2 TS PO HS AND 1 T EVERY MORNING Medicati onGeneri cName: baclofen Not Available Not Available Not Available triamcino lone acetonide 0.1 % topical ointment 03/14 completed Medicati on ID: [id number] D uration Value: 25 Brand Name: triamcin olone acetonid e Send Method: E-Prescr ibed Sub s Allowed: subs OK Medic ationGen ericName : triamcin olone acetonid e Not Available Not Available Not Available gabapenti n 300 mg capsule 11/19 completed Medicati on ID: [id number] D uration Value: 30 Reason: () Brand Name: gabapent in Send Method: E-Prescr ibed Sub s Allowed: subs OK Speci al Instruct ion: take 1 capsule by mouth three times a day Medi cationGe nericNam e: gabapent in Not Available Not Available Not Available mont[address] st 10 mg tablet 11/05 completed Medicati on ID: [id number] D uration Value: 30 Reason: () Brand [...] aerosol inhaler 07/11 completed Medicati on ID: [id number] D uration Value: 16 Brand Name: albutero l sulfate Send Method: E-Prescr ibed Sub s Allowed: subs OK Speci al Instruct ion: INL 2 PFS ITL Q 4 H PRF COUGH OR WHZ Medi cationGe nericNam e: albutero l sulfate Not Available Not Available Not Available spironola ctone 50 mg tablet 03/14 completed Medicati on ID: [id number] D uration Value: 30 Brand Name: spironol actone S end Method: E-Prescr ibed Sub s Allowed: subs OK Speci al Instruct ion: take 1 tablet by mouth twice a day with food Med icationG enericNa me: spironol actone Not Available Not Available Not Available amoxicill in 875 mg-potass ium clavulana te 125 mg tablet 03/14 completed Medicati on ID: [id number] B rand Name: amoxicil marlene-pot clavulan ate Send Method: E-Prescr ibed Sub s Allowed: subs OK Medic ationGen ericName : amoxicil marlene-pot clavulan ate Not Available Not Available Not Available Oyster Shell Calcium-5 00 500 mg (as carbonate 1,250 mg) tablet 2018 active Medicati on ID: [id number] D uration Value: 30 Brand Name: Oyster Shell Calcium 500 Send Method: E-Prescr ibed Sub s Allowed: subs OK Medic ationGen ericName : Oyster Shell Calcium 500 Not Available Not Available Not Available Premarin 0.625 mg/gram vaginal cream 2017 active Medicati on ID: [id number] D uration Value: 30 Brand Name: Premarin Send Method: E-Prescr ibed Sub s Allowed: subs OK Speci al Instruct ion: INSERT 2 GRAMS VAGINALL Y TWICE A WEEK Med icationG enericNa me: Premarin Not Available Not Available Not Available bupropion HCl XL 300 mg 24 hr tablet, extended release 2017 active Medicati on ID: [id number] D uration Value: 30 Brand Name: bupropio n HCl Send Method: E-Prescr ibed Sub s Allowed: subs OK Asyai al Instruct ion: TAKE 1 TABLET BY MOUTH EVERY MORNING. Medicat ionGener icName: bupropio n HCl Not Available Not Available Not Available Fish Oil 340 mg-1,000 mg capsule 2018 active Medicati on ID: [id number] D uration Value: 30 Brand Name: Fish Oil Send Method: E-Prescr ibed Sub s Allowed: subs OK Medic ationGen ericName : Fish Oil Not Available Not Available Not Available Glucosami ne Chondroit Complx Advan 750 mg-100 mg-125 mg-1.65 mg tablet 11/02 completed Medicati on ID: [id number] D uration Value: 30 Brand Name: Glucos Chond Cplx Advanced Send Method: E-Prescr ibed Sub s Allowed: subs OK Speci al Instruct ion: TK 1 T PO D Medica tionGene ricName: Glucos Chond Cplx Advanced Not Available Not Available Not Available cholecalc iferol (vitamin D3) 50 mcg (2,000 unit) capsule 2018 active Medicati on ID: [id number] D uration Value: 30 Brand Name: cholecal ciferol (vitamin D3) Send Method: E-Prescr ibed Sub s Allowed: subs OK Medic ationGen ericName : cholecal ciferol (vitamin D3) Not Available Not Available Not Available dapsone 5 % topical gel 03/14 completed Medicati on ID: [id number] B rand Name: dapsone Send Method: E-Prescr ibed Sub s Allowed: subs OK Speci al Instruct ion: APPLY THIN LAYER EXTERNAL LY TO FACE EVERY DAY IN THE MORNING Medicati onGeneri cName: dapsone Not Available Not Available Not Available Myrbetriq 25 mg tablet,ex tended release 10/15 completed Medicati on ID: [id number] B rand Name: Myrbetri q Send Method: E-Prescr ibed Sub s Allowed: subs OK Medic ationGen ericName : Myrbetri q Not Available Not Available Not Available Konsyl Sugar-Sotero e 6 gram oral powder packet 12/13 completed Medicati on ID: [id number] D uration Value: 30 Reason: () Brand Name: Konsyl Sugar-Fr ee Send Method: E-Prescr ibed Sub s Allowed: subs OK Medic ationGen ericName : Konsyl Sugar-Fr ee Not Available Not Available Not Available ProAir RespiClic k 90 mcg/actua tion breath activated 2017 active Medicati on ID: [id number] B rand Name: ProAir RespiCli ck Send [...] Updated DateTime 07/11/2025 167.64 cm 27.1 kg/m2 75772.52 g 152/80 mm[Hg] Winsome Jalloh [place] - [facility] 07/11/2025 08:58:06 Social History None recorded. Functional [...] IMO Codes Diagnosis Note [id number] [facility] FRED[facility] Allergy [address] [place] [address],[address] [place] [address] 02/14/2024 16:55:15 02/14/2024 17:42:53 Perennial allergic rhinitis [id number] J30.89 [id number] [facility] Allergy [address] [place] [address],[address] [place] [address] 03/13/2024 16:47:34 03/14/2024 12:11:32 Perennial allergic rhinitis 507192708 J30.89 [id number] [facility] HAYES [facility] Allergy [address] [place] [address],[address] [place] [address] 05/08/2024 16:47:07 05/08/2024 17:29:33 Perennial allergic rhinitis 851082896 J30.89 [id number] [facility] [address] [facility],[address] [place] [address] 06/26/2024 17:12:15 06/26/2024 17:14:30 Perennial allergic rhinitis 584000646 J30.89 [id number] [facility] [address] [place] [address],[address] [place] [address] 07/24/2024 16:50:18 07/24/2024 17:07:31 Perennial allergic rhinitis 581274573 J30.89 [id number] JOBY MERCADO RN Allergy [address] [place] [address],[address] [place] [address] 08/14/2024 16:50:34 08/14/2024 16:57:02 Perennial allergic rhinitis 033756439 J30.89 [id number] BRIAN JACKSON MD [facility] [place] [address] [facility] [address] 09/19/2024 11:21:00 09/19/2024 16:26:16 Chronic sinusitis 11135167 J32.9 Allergic rhinitis 265643 04 J30.9 [id number] ROCHELLE HAYES, [facility] Allergy [address] [place] [address],[address] [place] [address] 10/02/2024 16:46:18 10/02/2024 17:10:44 Perennial allergic rhinitis 294182573 J30.89 [id number] JOBY MERCADO RN Allergy [address] [place] [address], [address] [place] [address] 11/13/2024 16:46:14 11/13/2024 16:56:04 Perennial allergic rhinitis 316122767 J30.89 [id number] ROCHELLE HAYES, [facility] Allergy [address] [place] [address], [address] [place] [address] 12/04/2024 17:12:17 12/04/2024 17:14:14 Perennial allergic rhinitis [id number] J30.89 [id number] GOMEZ [facility], [facility] Allergy [address] [place] [address], [address] [place] [address] 01/01/2025 16:46:51 01/01/2025 17:47:39 Perennial allergic rhinitis 791623392 J30.89 [id number] JOBY MERCADO RN Allergy [address] [place] [address], [address] [place] [address] 02/05/2025 16:46:03 02/05/2025 16:58:33 Perennial allergic rhinitis [id number] J30.89 [id number] ROC[facility] HAYES [facility] Allergy [address] [place] [address],[address] [place] [address] 03/05/2025 16:46:07 03/05/2025 17:01:29 Perennial allergic rhinitis [id number] J30.89 [id number] GOMEZ DÍAZ, [facility] Allergy [address] [place] [address],[address] [place] [address] 04/16/2025 16:48:45 04/16/2025 17:00:26 Perennial allergic rhinitis 017104123 J30.89 [id number] JOBY MERCADO RN Allergy 100 [facility] 100 [place] [address] 05/07/2025 16:47:55 05/07/2025 17:08:15 Perennial allergic rhinitis 709247515 J30.89 [id number] GOMEZ ARJUNReyes, RMA Allergy 100 [facility] [address] [place] [address] 06/25/2025 16:46:58 06/25/2025 17:10:05 Perennial allergic rhinitis 706341126 J30.89 [id number] BRIAN JACKSON MD [facility] [address] [place] [address] 07/11/2025 08:45:58 07/11/2025 09:10:59 Perennial allergic rhinitis 890533088 J30.89 Chronic sinusitis 509750 00 J32.9 J32.8 77995 Deviated nasal septum 12 4286956 J34.2 11723 Health Concerns Section Related Observation LastModified by Organization Detai ls LastModified Time None Recorded Concern Status LastModified by Organization Details LastModified Time None Recorded Advance Directives Directive None Recorded Payers Insurance Date Sequence Insurance Name Policy Number Policy Gallagher Covered Member ID Gallagher Member ID Guarantor Name 07/04/2024 1 [place] [id number] Dilan Ramos [id number] Tamera B Madeleine 07/03/2025 1 [place] [id number] Dilan Ramos [id number] Tamera B Madeleine 07/03/2025 1 [place] [id number] Tamera Madeleine [id number] Tamera B Madeleine 08/14/2024 1 *SELF PAY* Jose Eduardo Le Madeleine 11/20/2024 1 [facility] NET PLAN (MEDICAID HMO) [id number] Dilan Ramos [id number] Tamera B Madeleine 06/09/2024 PAYMENT PLAN Tamera Salvador 12/10/2024 1 *SELF PAY* Jose Eduardo Salvador 07/03/2025 2 [place] [id number] Tamera Salvador [id number] Tamera Salvador 07/11/2025 1 [place] (MEDICARE [place]PLACEMENT PPO) [id number] Tamera Salvador [id number] Tamera Salvador 07/03/2025 2 [place] [employer] Tamera Salvador [id number] Tamera Salvador Notes Date Note Type [...] and does not persist. BRIAN FERREIRA MD [address] [place] [address], [address], [facility] - [facility] 07/11/2025 09:10:50 OBGyn Episode No OBEpisode recorded.
--- OUTSIDE RECORDS SUMMARY | 2025-08-29 07:23 | XMS_ITS | Continuity of Care Document ---
Author Organization [place] - [facility], [facility] Address [address] [place] [address] Care Team Providers Care News Producer Name Role Phone LORENZO BRUNO Primary Care Provider [phone] Assessment Encounter Date Assessment Date Assessment LastModified [...] By Organization Details Last Modified Time 07/11/2025 71829 - Discontinue allergy injections - Use Flonase [...] Address Organization Details Recorded Time Chronic rhinitis 67622762 Active 2017 Chronic rhinitis; Note: Date Diagnosed : 07/30/2018 12:02 PM (J31.0) Not Available [facility] 4 02:39:11 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 10266084 Active 2018 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, unspecifi ed lacrimal gland; Note: Date Diagnosed : 10/08/2018 12:03 PM (H04.229) Not Available [facility] 4 02:39:14 Bilateral earache 751269213 Active 2021 Otalgia, bilateral ; Note: Date Diagnosed : 08/31/2022 2:27 PM (H92.03) Otalgia , bilateral ; Note: Date Diagnosed : 07/30/2018 12:03 PM (H92.03) ; Start Date : 8 Not Available [facility] 4 02:39:28 Acute maxillary sinusitis 39126723 Active 2021 Acute maxillary sinusitis , unspecifi ed; Note: Date Diagnosed : 08/31/2022 2:33 PM (J01.00) Not Available [facility] 4 02:39:22 Bilateral temporoma ndibular joint pain [id number] 173324 Active 2021 Arthralgi a of bilateral temporoma ndibular joint; Note: Date Diagnosed : 08/31/2022 2:27 PM (M26.623) Not Available [facility] 4 02:39:12 Allergic rhinitis 85082666 Active 2022 Allergic rhinitis: Due to other [...] : 06/24/2021 3:07 PM (477. Not Available [facility] 4 01:02:06 Perennial allergic rhinitis 329875223 Active 2023 Eduardo Burks [address] [place] [address], [place], [address] , [facility] - [facility] 5 17:09:07 Chronic sinusitis 72578268 Active 2023 BRIAN JACKSON MD [address], [place], [address] , [facility] [place] 09:10:30 Deviated nasal septum 091856746 Active 2024 BRIAN JACKSON MD [address], [place], [address] , [place] [facility] 09:09:20 Problem Notes None recorded. Procedures Surgical History Date Name Laterality Status Provider Name and Address Organization Details Recorded Time 07/11/20 25 JMSNasal/Sinus Endoscopy-PRIOR surgical cavities completed BRIAN FERREIRA MD [address], [place], [address], [place] [facility] 07/11/2025 09:09:16 06/25/20 25 Allergy Immunotherapy Injections completed Eduardo Burks [address] [facility] [place], [address], [facility] - [facility] 06/25/2025 17:09:31 05/07/20 25 Allergy Immunotherapy Injections completed JOBY MERCADO RN [address] [facility], [place], [address], [place] [facility] 05/07/2025 17:07:34 04/16/20 25 Allergy Immunotherapy Injections completed GOMEZ DÍAZC, RMA [address] [place] [address], [address], [place] [facility] 04/16/2025 16:59:55 03/05/20 25 Allergy Immunotherapy Injections completed GOMEZ DÍAZC, RMA [address], [place], [address], [place] [facility] 03/05/2025 17:01:03 02/06/20 25 Allergy Immunotherapy Injections completed GOMEZ CANTORZEC, RMA [address], [place], [address], [place] [facility] 02/05/2025 16:58:15 01/02/20 25 Allergy Immunotherapy Injections completed GOMEZ DÍAZC, RMA [address], [place], [address], [place] [facility] [place] 01/01/2025 17:46:59 12/05/19 25 Allergy Immunotherapy Injections completed GOMEZ GOODMAN A [address] [place] [address], [address], [facility] - [facility] [place] 12/04/2024 17:13:39 11/13/19 25 Allergy Immunotherapy Injections completed JOBY MERCADO RN [address] [place],[address], [place], [address], [place] [facility] 11/13/2024 16:55:31 10/02/19 25 Allergy Immunotherapy Injections completed JOBY MERCADO RN [address] [place],[address] [place] [address], [address], [place] [facility] 10/02/2024 17:09:55 09/19/20 24 JMSNasal/Sinus Endoscopy-PRIOR surgical cavities completed BRIAN FERREIRA MD [address] [place],[address] [place] [address], [address], [place] [facility] [place] 09/19/2024 12:20:47 08/14/20 24 Allergy Immunotherapy Injections completed GOMEZ GOODMAN [facility] [address] [place],[address], [address], [facility] - [facility] [place] 08/14/2024 16:56:13 07/24/20 24 Allergy Immunotherapy Injections completed GOMEZ GOODMAN Alex [address] [place],[address] [place] [address], [address], [facility] - [facility] [place] 07/24/2024 17:06:58 06/26/20 24 Allergy Immunotherapy Injections completed JOBY MERCADO RN [address] [place],[address] [place] [address], [address], [place] [facility] 06/26/2024 17:13:16 05/08/20 24 Allergy Immunotherapy Injections completed SILVIA HERNANDEZ [address], [place], [address], [place] [facility] 05/08/2024 17:00:48 06/19/20 24 Allergy Immunotherapy Injections completed SILVIA HERNANDEZ [address] [facility],[address], [address], [place] [facility] 03/13/2024 17:11:42 02/14/20 24 Allergy Immunotherapy Injections completed SILVIA HERNANDEZ [address] [place],[facility] [address], [place], [address], [facility] - [facility] 02/14/2024 17:24:04 functional endoscopic sinus surgery completed BRIAN FERREIRA MD [address] [facility],[address], [address], [facility] - [facility] 09/19/2024 12:17:31 Imaging Results None recorded. Procedure Notes None recorded. Medical Equipment None Reported. Allergies Allergen ID Allergen Name Allergen Category Reaction Reaction Severity Criticality Documentation Date Start Date Code Code System Note Provider Name and Address Organization Details Recorded Time 033893 Product containin g penicilli n (product) medicatio n Not available Not available Not available 07/11/2025 35716 8001 SNOMED Winsome tadeo [facility] 5 08:52:16 794947 cat dander environme nt Not available Not available Not available 07/11/2025 Winsome tadeo [place] - [facility] 5 08:52:22 823742 Canis lupus familiari s extract environme nt Not available Not available Not available 07/11/2025 95596 4 RxNorm Winsome tadeo [facility] 5 08:52:27 302841 house dust allergeni c extract environme nt,medica tion Not available Not available Not available 07/11/2025 93580 9 RxNorm Winsome tadeo [place] - [facility] 5 08:52:33 740726 POLLEN EXTRACTS environme nt,medica tion Not available Not available Not available 07/11/2025 60764 6 RxNorm Winsome tadeo [facility] 5 08:52:39 60142 Penicilli n Not available Not available Not available Not available 02/06/2024 71795 RxNorm BRIAN DU MD [address] [place] [address], [address] [place] [address] - [facility] 12:09:28 Medications Name Sig Start Date Stop Date Status Note LastModified by Organization Details LastModified Time methocarb meera 500 mg tablet 03/14 completed Medicati on ID: [id number] D uration Value: 7 Brand Name: methocar bamol Se nd Method: E-Prescr ibed Sub s Allowed: subs OK Speci al Instruct ion: take 1 tablet by mouth three times a day Medi cationGe nericNam e: methocar bamol Not Available Not Available Not Available clonidine HCl 0.1 mg tablet 07/11 completed Medicati on ID: [id number] D uration Value: 30 Brand Name: clonidin e HCl Send Method: E-Prescr ibed Sub s Allowed: subs OK Medic ationGen ericName : clonidin e HCl Not Available Not Available Not Available gabapenti n 600 mg tablet 07/22 completed Medicati on ID: [id number] D uration Value: 30 Brand Name: gabapent in Send Method: E-Prescr ibed Sub s Allowed: subs OK Speci al Instruct ion: take 1 tablet by mouth three times a day Medi cationGe nericNam e: gabapent in Not Available Not Available Not Available atorvasta tin 20 mg tablet 07/11 completed Medicati on ID: [id number] D uration Value: 30 Brand Name: atorvast atin Sen d Method: E-Prescr ibed Sub s Allowed: subs OK Speci al Instruct ion: take 1 tablet by mouth once daily Me dication GenericN solo: atorvast atin Not Available Not Available Not Available sertralin e 100 mg tablet 2017 active Medicati on ID: [id number] D uration Value: 30 Brand Name: sertrali ne Send Method: E-Prescr ibed Sub s Allowed: subs OK Speci al Instruct ion: take 1 1/2 tablets by mouth once daily Me dication GenericN solo: sertrali ne Not Available Not Available Not Available sumatript an 50 mg tablet 03/14 completed Medicati on ID: [id number] D uration Value: 30 Brand Name: jacky to succinat e Send Method: E-Prescr ibed Sub s Allowed: subs OK Medic ationGen ericName : jacky to succinat e Not Available Not Available Not Available acyclovir 400 mg tablet 03/14 completed Medicati on ID: [id number] D uration Value: 30 Brand Name: acyclovi r Send Method: E-Prescr ibed Sub s Allowed: subs OK Speci al Instruct ion: take 1 tablet by mouth once daily Me dication GenericN solo: acyclovi r Not Available Not Available Not Available Vitamins B Complex capsule 11/02 completed Medicati on ID: [id number] D uration Value: 30 Brand Name: Vitamins B Complex Send Method: E-Prescr ibed Sub s Allowed: subs OK Medic ationGen ericName : Vitamins B Complex Not Available Not Available Not Available tramadol 50 mg tablet 11/02 completed Medicati on ID: [id number] D uration Value: 25 Brand Name: tramadol Send Method: E-Prescr ibed Sub s Allowed: subs OK Speci al Instruct ion: TK 1 TO 2 TS PO Q 6 H Medica tionGene ricName: tramadol Not Available Not Available Not Available clindamyc in 1 % topical gel 08/31 completed Medicati on ID: [id number] D uration Value: 20 Brand Name: clindamy michelle phosphat e Send Method: E-Prescr ibed Sub s Allowed: subs OK Medic ationGen ericName : clindamy michelle phosphat e Not Available Not Available Not Available trazodone 100 mg tablet 2017 active Medicati on ID: [id number] B rand Name: trazodon e Send Method: E-Prescr ibed Sub s Allowed: subs OK Medic ationGen ericName : trazodon e Not Available Not Available Not Available baclofen 10 mg tablet 08/31 completed Medicati on ID: [id number] D uration Value: 60 Brand Name: baclofen Send Method: E-Prescr ibed Sub s Allowed: subs OK Speci al Instruct ion: TK 2 TS PO HS AND 1 T EVERY MORNING Medicati onGeneri cName: baclofen Not Available Not Available Not Available triamcino lone acetonide 0.1 % topical ointment 03/14 completed Medicati on ID: [id number] D uration Value: 25 Brand Name: triamcin olone acetonid e Send Method: E-Prescr ibed Sub s Allowed: subs OK Medic ationGen ericName : triamcin olone acetonid e Not Available Not Available Not Available gabapenti n 300 mg capsule 11/19 completed Medicati on ID: [id number] D uration Value: 30 Reason: () Brand Name: gabapent in Send Method: E-Prescr ibed Sub s Allowed: subs OK Speci al Instruct ion: take 1 capsule by mouth three times a day Medi cationGe nericNam e: gabapent in Not Available Not Available Not Available [facility] [facility] 10 mg tablet 11/05 completed Medicati on ID: [id number] D uration Value: 30 Reason: () Brand [...] aerosol inhaler 07/11 completed Medicati on ID: [id number] D uration Value: 16 Brand Name: albutero l sulfate Send Method: E-Prescr ibed Sub s Allowed: subs OK Speci al Instruct ion: INL 2 PFS ITL Q 4 H PRF COUGH OR WHZ Medi cationGe nericNam e: albutero l sulfate Not Available Not Available Not Available spironola ctone 50 mg tablet 03/14 completed Medicati on ID: [id number] D uration Value: 30 Brand Name: spironol actone S end Method: E-Prescr ibed Sub s Allowed: subs OK Speci al Instruct ion: take 1 tablet by mouth twice a day with food Med icationG enericNa me: spironol actone Not Available Not Available Not Available amoxicill in 875 mg-potass ium clavulana te 125 mg tablet 03/14 completed Medicati on ID: [id number] B rand Name: amoxicil marlene-pot clavulan ate Send Method: E-Prescr ibed Sub s Allowed: subs OK Medic ationGen ericName : amoxicil marlene-pot clavulan ate Not Available Not Available Not Available Oyster Shell Calcium-5 00 500 mg (as carbonate 1,250 mg) tablet 2018 active Medicati on ID: [id number] D uration Value: 30 Brand Name: Oyster Shell Calcium 500 Send Method: E-Prescr ibed Sub s Allowed: subs OK Medic ationGen ericName : Oyster Shell Calcium 500 Not Available Not Available Not Available Premarin 0.625 mg/gram vaginal cream 2017 active Medicati on ID: [id number] D uration Value: 30 Brand Name: Premarin Send Method: E-Prescr ibed Sub s Allowed: subs OK Speci al Instruct ion: INSERT 2 GRAMS VAGINALL Y TWICE A WEEK [facility] Premarin Not Available Not Available Not Available bupropion HCl XL 300 mg 24 hr tablet, extended release 2017 active Medicati on ID: [id number] D uration Value: 30 Brand Name: bupropio n HCl Send Method: E-Prescr ibed Sub s Allowed: subs OK Speci al Instruct ion: TAKE 1 TABLET BY MOUTH EVERY MORNING. Medicat ionGener icName: bupropio n HCl Not Available Not Available Not Available Fish Oil 340 mg-1,000 mg capsule 2018 active Medicati on ID: [id number] D uration Value: 30 Brand Name: Fish Oil Send Method: E-Prescr ibed Sub s Allowed: subs OK Medic ationGen ericName : Fish Oil Not Available Not Available Not Available Glucosami ne Chondroit Complx Advan 750 mg-100 mg-125 mg-1.65 mg tablet 11/02 completed Medicati on ID: [id number] D uration Value: 30 Brand Name: Glucos Chond Cplx Advanced Send Method: E-Prescr ibed Sub s Allowed: subs OK Speci al Instruct ion: TK 1 T PO D Medica tionGene ricName: Glucos Chond Cplx Advanced Not Available Not Available Not Available cholecalc iferol (vitamin D3) 50 mcg (2,000 unit) capsule 2018 active Medicati on ID: [id number] D uration Value: 30 Brand Name: cholecal ciferol (vitamin D3) Send Method: E-Prescr ibed Sub s Allowed: subs OK Medic ationGen ericName : cholecal ciferol (vitamin D3) Not Available Not Available Not Available dapsone 5 % topical gel 03/14 completed Medicati on ID: [id number] B rand Name: dapsone Send Method: E-Prescr ibed Sub s Allowed: subs OK Speci al Instruct ion: APPLY THIN LAYER EXTERNAL LY TO FACE EVERY DAY IN THE MORNING Medicati onGeneri cName: dapsone Not Available Not Available Not Available Myrbetriq 25 mg tablet,ex tended release 10/15 completed Medicati on ID: [id number] B rand Name: Myrbetri q Send Method: E-Prescr ibed Sub s Allowed: subs OK Medic ationGen ericName : Myrbetri q Not Available Not Available Not Available Konsyl Sugar-Sotero e 6 gram oral powder packet 12/13 completed Medicati on ID: [id number] D uration Value: 30 Reason: () Brand Name: Konsyl Sugar-Fr ee Send Method: E-Prescr ibed Sub s Allowed: subs OK Medic ationGen ericName : Konsyl Sugar-Fr ee Not Available Not Available Not Available ProAir RespiClic k 90 mcg/actua tion breath activated 2017 active Medicati on ID: [id number] B rand Name: ProAir RespiCli ck Send [...] Updated DateTime 07/11/2025 167.64 cm 27.1 kg/m2 54786.52 g 152/80 mm[Hg] Winsome Jalloh [place] - [facility] 07/11/2025 08:58:06 Social History None recorded. Functional [...] Disorder N Anesthesia Complications N Heart Attack (AL) N Other Skin Condition Y Diabetes N [...] ICD10 Code Diagnosis IMO Codes Diagnosis Note [id number] GOMEZ GOODMAN [facility] Allergy [address] [place] [address] 06/25/2025 16:46:58 06/25/2025 17:10:05 Perennial allergic rhinitis [id number] J30.89 [id number] BRIAN JACKSON MD [facility] [address] [address] 07/11/2025 08:45:58 07/11/2025 09:10:59 Perennial allergic rhinitis 507860521 J30.89 Chronic sinusitis 976276 00 J32.9 J32.8 56784 Deviated nasal septum 12 8761115 J34.2 16913 Health Concerns Section Related Observation LastModified by Organization Detai ls LastModified Time None Recorded Concern Status LastModified by Organization Details LastModified Time None Recorded Payers Encounter Date Sequence Insurance Name Policy Number Policy Gallagher Covered Member ID Gallagher Member ID Guarantor Name 07/11/2025 1 [id number] (MEDICARE [place]ACEMENT PPO) [id number] Tamera Le Madeleine [id number] Tamera Salvador Notes Date Note Type [...] and does not persist. BRIAN FERREIRA MD [address] [place] [address], [address], [place] - [facility] 07/11/2025 09:10:50 OBGyn Episode No OBEpisode recorded.
--- OUTSIDE RECORDS SUMMARY | 2025-08-29 07:23 | XMS_ITS | Data Portability ---
Author Organization [facility], [address] Address [address] [place] [address] Assessment No assessment recorded. Plan of Treatment Reminders Order Date Submit Date Provider Last Modified By Organization Details Last Modified Time Details Appointments None recorded. Lab rapid flu (A+B) 2024 025 [email or web address] 247 _[facility], [address] [place] [address], [id number], 5 11:00:23 SARS CoV 2 (COVID-19) Ag, QL, IA, upper respiratory specimen 2024 025 [email or web address] 247 _[facility], [address] [place] [address], [address], 5 11:00:24 SARS CoV 2 (COVID-19) Ag, QL, [place], upper respiratory specimen 2023 024 [email or web address] 247 _[facility], [address] [place] [address], [address], 4 17:28:53 rapid flu (A+B) 2021 022 [email or web address] _[facility], [address] [place] [address], [address], 19:17:32 Referral None recorded. Procedures None recorded. Surgeries None recorded. Imaging None recorded. Medication Orders albuterol sulfate HFA 90 mcg/actuati on aerosol inhaler 2024 025 [facility] [address] [place], [address], 5 11:00:26 doxycycline hyclate 100 mg capsule 2024 025 [facility] [address] [place], [address], 5 11:00:26 cephalexin 500 mg capsule [address]24 [address] [address], [address] [place], [address], 5 09:42:01 benzonatate 200 mg capsule 2023 [address]24 [address], [address] [place], [address], 5 11:57:06 amoxicillin 500 mg capsule [address]/[facility]armacy #2476, [address] [place], [address], 5 11:56:55 prednisone 20 mg tablet 2023 024 [facility] [address] [place], [address], 4 16:50:29 triamcinolo ne acetonide 0.1 % topical cream 2023 024 [facility]/Pharmacy #2476, [address] [place], [address], 4 16:51:30 Medrol (Mark) 4 mg tablets in a dose pack 2021 022 [email or web address] 2 [facility]/Pharmacy #0838, [address] [place] [address], [address], 16:07:12 doxycycline hyclate 100 mg capsule 2021 Verna heller 2 [facility]/Pharmacy #6130, [address] [facility], [place], [address], 16:04:20 Patient TargetsNo targets recorded. Patient Instructions Encounter Date Encounter Id Patient Instructions Last Modified By Organization Details Last Modified Time 09/06/2022 [id number] cough: care instructions Not available 09/06/2022 19:17:32 [...] Emergency Department. Not available 09/06/2022 19:21:27 04/28/2024 [id number] Eczema: Care Instructions [email or web address] Not available 04/28/2024 16:52:03 06/15/2024 [id number] coronavirus (covid-19): care instructions [email or web address] Not available 06/15/2024 17:28:51 If you test [...] masking (see below). For travel guidance, see [facility] s Travel webpage. [email or web address] Not available 06/15/2024 17:26:53 10/05/2024 [id number] ingrown toenail: care instructions [email or web address] Not available 10/05/2024 12:28:18 10/20/2024 [id number] You can take ove r the counter tylenol or ibuprofen per package instructions for the pain. See printed instructions. Follow-up with your doctor if no improvement in 1 week. Seek Emergency Medical evaluation for any worsening symptoms. [email or web address] Not available 10/20/2024 11:00:30 Reason for Referral None Reported. Results Created Date Observation Date Name Description Value Unit Range Abnormal Flag Note LastModifiedBy Organization Detail LastModifiedTime 09/06/20 22 09/06/2022 rapid flu (A+B) Unknown Analyte Normal = Negati ve Not Available [facility] [address] [place] [address], [address], 09/06/2022 18:41:37 09/06/20 22 09/06/2022 rapid flu (A+B) Unknown Analyte Normal = Negati ve Not Available [facility], [address], 09/06/2022 18:41:37 09/06/20 22 09/06/2022 rapid flu (A+B) Unknown Analyte negati ve Not Available [facility] ie [address], [address], 09/06/2022 18:41:37 09/06/20 22 09/06/2022 rapid flu (A+B) Unknown Analyte negati ve Not Available [facility], [address], 09/06/2022 18:41:37 06/15/20 24 06/15/2024 SARS CoV 2 (COVI D-19) Ag, QL, [place], upper respi rator y speci men Unknown Analyte positi ve Not Available [facility], [address], 06/15/2024 17:01:21 06/15/20 24 06/15/2024 SARS CoV 2 (COVI D-19) Ag, QL, IA, upper respi rator y speci men Unknown Analyte yes Not Available [address], [address], 06/15/2024 17:01:21 10/20/19 25 10/20/2024 SARS CoV 2 (COVI D-19) Ag, QL, IA, upper respi rator y speci men Unknown Analyte negati ve Not Available [facility], [address], 10/20/2024 09:44:11 10/20/19 25 10/20/2024 SARS CoV 2 (COVI D-19) Ag, QL, IA, upper respi rator y speci men Unknown Analyte yes Not Available [address], [address], 10/20/2024 09:44:11 10/20/19 25 10/20/2024 rapid flu (A+B) Unknown Analyte negati ve Not Available [address], [address], 10/20/2024 09:43:55 10/20/1910/20/2024 rapid flu (A+B) Unknown Analyte negati ve Not Available [facility] [address] [place], [address], 10/20/2024 09:43:55 10/20/1910/20/2024 rapid flu (A+B) Unknown Analyte yes Not Available [address] [place], [address], 10/20/2024 09:43:55 Result Notes None recorded. Problems Name Problem SNOMED Code Status Onset Date Resolution Date Notes Provider Name and Address Organization Details Recorded Time Cholesterol measurement Active Stephanie Dow null, [place] - [facility] 5 12:00:04 Anxiety 74327341 Active 2021 Dasia Thurman null, PA - [facility] 2 18:39:05 Depressive disorder 67215032 Active 2021 Dasia Thurman null, PA - [facility] 2 18:39:11 Hyperlipidemia 15489696 Active 2021 Dasia Thurman null, PA - [facility] 2 18:39:29 Acne 67729144 Active 2023 Gretchen Gasca null, PA - [facility] 4 16:08:06 Atopic dermatitis 26486264 Active 2023 Santiago Cooper, TIM [address] [place], [address] [facility] [place] - [facility] 4 16:50:45 Problem [...] mass index (BMI) Body weight Oxygen saturation Heart rate Body temperature Systolic And Diastolic Provider Name and Address Organization Details Last Updated DateTime 5 167.64 cm 27.8 kg/m2 51266.8 9 g 97 % 65 /min 98.5 [degF] 133/80 mm[Hg] Stephanie Dow PA - [facility] 5 11:56:05 Date Recorded Body height Body mass index (BMI) Body weight Oxygen saturation Heart rate Body temperature Systolic And Diastolic Provider Name and Address Organization Details Last Updated DateTime 5 167.64 cm 27.9 kg/m2 41497.4 8 g 98 % 64 /min 98.5 [degF] 135/86 mm[Hg] Stephanie Alarcon'uJan J PA - [facility] 5 09:41:17 Date Recorded Body height Body mass index (BMI) Body weight Pain severity - 0-10 verbal numeric rating [Score] - Reported Respiratory rate Body temperature Heart rate Oxygen saturation Systolic And Diastolic Provider Name and Address Organization Details Last Updated DateTime 4 167.64 cm 27.8 kg/m2 65395.8 9 g 9 18 /min 96.8 [degF] 75 /min 98 % 142/90 mm[Hg] Gretchen Gasca PA - [facility] 4 16:11:40 Date Recorded Body height Body mass index (BMI) Body weight Body temperature Heart rate Oxygen saturation Systolic And Diastolic Provider Name and Address Organization Details Last Updated DateTime 4 167.64 cm 27.8 kg/m2 46685.8 9 g 98.6 [degF] 63 /min 98 % 135/87 mm[Hg] Stephanie DorianMartinaJuan J PA - [facility] 4 16:47:47 Date Recorded Body height Body mass index (BMI) Body weight Oxygen saturation Heart rate Respiratory rate Body temperature Systolic And Diastolic Provider Name and Address Organization Details Last Updated DateTime 2 168.91 cm 27.8 kg/m2 02613.6 6 g 99 % 69 /min 20 /min 98.3 [degF] 150/87 mm[Hg] Dasia Thurman PA - [facility] 2 18:41:13 Social History Question Answer Notes LastModified by [employer] ion Details LastModified Time Tobacco Smoking Status Never Smoker Gretchen tadeo PA - [facility] 04/28/2024 16:08:37 Have You Had A Flu Shot This Season? Yes Information not available 04/28/2024 If No, Would You Like A Flu Shot Today? No Information not available 04/28/2024 What Is Your Relationship Status? Information not available 06/15/2024 Have You Recently Traveled Abroad? No Information not available 06/15/2024 Sex: Unknown Functional Status Question Answer Note LastModified by Organizat ion Details LastModified Time Do you use [...] Time Father No current problems or disability [email or web address] Not available 08/25 18:39:34 Father Hyperlipidem ia [email or web address] Not available 09/06 18:39:54 Mother No current problems or disability [email or web address] Not available 08/25 18:39:34 Mother Hyperlipidem ia [email or web address] Not available 09/06 18:40:00 Medical History No medical history recorded. Gynecological History Statement/Question Response Is there any chance of ? No LMP N/A Obstetrics History GPAL:G 0 P 0 0 0 0 Past Encounters Encounter ID Performer Location Encounter Start Date Encounter Closed Date Diagnosis/Indication Diagnosis SNOMED-CT Code Diagnosis ICD10 Code Diagnosis IMO Codes Diagnosis Note [id number] [address] [place] [address] [address] [facility] [address] [place] [phone] 01/04/2022 13:22:54 01/04/2022 18:33:[id number] [place] [address] [address] [facility] [address] [place] [phone] 05/12/2018 12:42:08 05/12/2018 13:09:[id number] [place] [address] [address] [facility] [address] [place] [id number] 10/04/2021 08:19:35 10/04/2021 09:58:[id number] [place] [address] [address] [facility] [address] [place] [phone] 12/02/2018 16:06:13 12/02/2018 16:20:23 [id number] Shilpi Funez [place] [address] [facility] [address] [place] [phone] 09/06/2022 18:27:21 09/06/2022 19:17:59 Cough 68149034 R05.9 [id number] Santiago Cooper [place] [address] [facility] [address] [place] [id number] 04/28/2024 15:33:41 04/28/2024 16:55:03 Atopic dermatitis 81328363 L20.9 Based on your exam and presentati [...] skin3. Fever > 101.04. Joint Pain5. Swelling [id number] [place]ANO [place] [address] [address] 06/15/2024 15:28:11 06/15/2024 17:51:57 COVID-19 356596650 U07.1 Black Elderberry Syrup:1-2 tsp 2-3 times a day for 5 days as needed for coughing.S ambucol Black Elderberry Original Syrup (available at [employer] )[employer] Black Elderberry Syrup, 5.4-Ounce Bottle (available at [employer] or [employer]) Use a cool mist humidifier in the [...] Brand)Thro at Coat Tea ( by [employer] ) Clear broth soup: Vegetable, Chicken [...] Chicken or Beef as tolerated. Acute lymphangitis 80392 05 L03.91 Cough 88188526 R05.9 [id number] [place] [address] [address] 10/05/2024 11:25:06 10/05/2024 12:30:37 Ingrowing nail of toe of right foot 1814677604 2342317 L60.0 infected toe nailRx abxTake your antibiotic [...] needed for worsening symptoms or no improvemen t. [id number] [place] [address] [address] 10/20/2024 09:27:28 10/20/2024 11:01:55 Cough 12726718 R05.9 CoughBlack Elderberry Syrup:1-2 tsp 2-3 times a day for 5 days as needed for coughing.S ambucol Black Elderberry Original Syrup (available at [employer] )[employer] Black Elderberry Syrup, 5.4-Ounce Bottle (available at [employer] or [employer]) Use a cool mist humidifier in the room that you sleep to add moisture to the air, which should soothe the airways and help loosen any mucus that may be present. Acute bron chitis with bronchospasm 08795629 J20.9 Health Concerns Section Related Observation LastModified by Organization Detai ls LastModified Time None Recorded Concern Status LastModified by Organization Details LastModified Time None Recorded Advance Directives Directive None Recorded Payers Insurance Date Sequence Insurance Name Policy Number Policy Gallagher Covered Member ID Gallagher Member ID Guarantor Name 10/05/2024 1 [place] Tamera Madeleine [id number] Tamera Madeleine 10/05/2024 1 [facility] (HMO) Tamera Madeleine [id number] Tamera Madeleine 10/20/2024 1 [place]IC[place]: [email or web address] Tamera B Madeleine [id number] Tamera Madeleine 10/05/2024 1 [facility] (MEDICAID HMO) [facility] Tamera Madeleine [id number] Tamera Madeleine 12/17/2024 2 [place] [facility] Tamera Madeleine [id number] Tamera Madeleine Notes Date Note Type Note Provider Name and Address Organization Details Recorded Time 2 text/html CoughReported by PatientHPIFor quality, patient reportsproductive cough. For timing, patient reportsworseningbut reportsconstant. For severity, patient reportsmild. For associated symptoms, patient reportsno fever,no chills,no chest pain,no heartburn,no nausea,no vomiting,no edema,no agitation, andno wheezing. Pt c/o cough and congestion and chills x 10 days. Shilpi Funez MD [facility] [place], [address], PA - [facility] 09/06/2022 19:27:21 4 [...] For severity, patient reportsmoderate. For duration, patient [id number] months. For alleviating factors, patient reportsnothing gives relief. For associated symptoms, patient reportsno feverandno fatigue. For treatment history, patient reportsprescription topical treatment ___ with improvement. Santiago Cooper NP [address] [place], [address], [place] - [facility] 04/28/2024 16:56:26 4 text/html 63 yo F c/o fever, diarrea, headaches, and sore throat x 4 days. No sick contacts. JEFFREY SOLORZANO MD [address] [place], [address], [place] - [facility] 06/15/2024 19:23:43 5 text/html ToesReported by [email or web address] yo femalec/o R toenail pain x 2 weeksR foot 2nd toe self clipped her toenails 2 weeks ago No feverNo chillsNo nauseaNo vomitingNo bleedingNo dischargeNo rash tried warm soaks ROS as noted in the HPI Reginald Yap, DO [address] [place], [address], [place] - [facility] 10/05/2024 12:29:08 5 text/html 63 y F c/o cough,congested,some headaches,sore throat earache (right) and fever for 3 days now. Hx of asthma. She needs her Albuterol refilled. JEFFREY SOLORZANO MD [address] [place], [address], [place] - [facility] 10/20/2024 11:00:56 OBGyn Episode No OBEpisode recorded.
--- OUTSIDE RECORDS SUMMARY | 2025-08-29 07:23 | XMS_ITS | Continuity of Care Document ---
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, unspecifi ed lacrimal gland; Note: Date Diagnosed : 10/08/2018 12:03 PM (H04.229) Not Available [facility] 4 02:39:14 Bilateral earache 753743402 Active 2021 Otalgia, bilateral ; Note: Date Diagnosed : 08/31/2022 2:27 PM (H92.03) Otalgia , bilateral ; Note: Date Diagnosed : 07/30/2018 12:03 PM (H92.03) ; Start Date : 8 Not Available [facility] 4 02:39:28 Acute maxillary sinusitis 90881394 Active 2021 Acute maxillary sinusitis , unspecifi ed; Note: Date Diagnosed : 08/31/2022 2:33 PM (J01.00) Not Available [facility] 4 02:39:22 Bilateral temporoma ndibular joint pain [id number] 570323 Active 2021 Arthralgi a of bilateral temporoma ndibular joint; Note: Date Diagnosed : 08/31/2022 2:27 PM (M26.623) Not Available [facility] 4 02:39:12 Allergic rhinitis 45864972 Active 2022 Allergic rhinitis: Due to other [...] 06/24/2021 3:07 PM (477. Not Available [facility] 4 01:02:06 Perennial allergic rhinitis 052653716 Active 2023 Eduardo Burks [address] [place] [address],[place] [address], [place], [address] , [facility] - [facility] 5 17:09:07 Chronic sinusitis 92060962 Active 2023 BRIAN JACKSON MD [address] [place], [place] [address], [address] , [facility] - [facility] 5 09:10:30 Deviated nasal septum 672990563 Active 2024 BRIAN JACKSON MD [address] [place] [address],[place] [address], [place], [address] , [facility] - [facility] 5 09:09:20 Problem Notes None recorded. Procedures Surgical History Date Name Laterality Status Provider Name and Address Organization Details Recorded Time 07/11/20 25 JMSNasal/Sinus Endoscopy-PRIOR surgical cavities completed BRIAN FERREIRA MD [address] [place] [address],[place] [address], [place], [address], [facility] - [facility] 07/11/2025 09:09:16 06/25/20 25 Allergy Immunotherapy Injections completed Eduardo Burks [address] [place] [address],[address], [place], [address], [place] - [facility] 06/25/2025 17:09:31 05/07/20 25 Allergy Immunotherapy Injections completed JOBY MERCADO RN [address], [place], [address], [place] [facility] 05/07/2025 17:07:34 04/16/20 25 Allergy Immunotherapy Injections completed GOMEZ KORZEC, RMA [address], [place], [address], [place] [facility] 04/16/2025 16:59:55 03/05/20 25 Allergy Immunotherapy Injections completed GOMEZ KORZEC, RMA [address], [place], [address], [place] [facility] 03/05/2025 17:01:03 02/06/20 25 Allergy Immunotherapy Injections completed GOMEZ ARJUNC, RMA [address], [place], [address], [place] [facility] 02/05/2025 16:58:15 01/02/20 25 Allergy Immunotherapy Injections completed GOMEZ KORZEC, RMA [address], [place], [address], [place] [facility] 01/01/2025 17:46:59 12/05/19 25 Allergy Immunotherapy Injections completed GOMEZ KORZEC, RMA [address], [place], [address], [place] [facility] 12/04/2024 17:13:39 11/13/19 25 Allergy Immunotherapy Injections completed JOBY MERCADO RN [address], [place], [address], [place] [facility] 11/13/2024 16:55:31 10/02/19 25 Allergy Immunotherapy Injections completed JOBY MERCADO RN [address], [place], [address], [place] [facility] 10/02/2024 17:09:55 09/19/20 24 JMSNasal/Sinus Endoscopy-PRIOR surgical cavities completed [facility] [place],[address] [place] [address], [address], [facility] - [facility] 09/19/2024 12:20:47 08/14/20 24 Allergy Immunotherapy Injections completed GOMEZ GOODMAN RMA [address], [address], [facility] - [facility] 08/14/2024 16:56:13 07/24/20 24 Allergy Immunotherapy Injections completed GOMEZ GOODMAN A [address] [facility] [place],[address] [place] [address], [address], [facility] - [facility] 07/24/2024 17:06:58 06/26/20 24 Allergy Immunotherapy Injections completed JOBY MERCADO RN [address] [facility] [place],[address], [address], [facility] - [facility] 06/26/2024 17:13:16 05/08/20 24 Allergy Immunotherapy Injections completed SILVIA HERNANDEZ [address] [facility] [place],[address] [place] [address], [address], [facility] - [facility] 05/08/2024 17:00:48 03/13/20 24 Allergy Immunotherapy Injections completed SILVIA HERNANDEZ [address] [facility] [place],[address], [address], [facility] - [facility] 03/13/2024 17:11:42 02/14/20 24 Allergy Immunotherapy Injections completed SILVIA HERNANDEZ [address] [facility] [place],[address], [address], [facility] - [facility] 02/14/2024 17:24:04 functional endoscopic sinus surgery completed BRIAN FERREIRA MD [address] [facility] [place],[address] [place] [address], [address], [facility] - [facility] 09/19/2024 12:17:31 Imaging Results None recorded. Procedure Notes None recorded. Medical Equipment None Reported. Allergies Allergen ID Allergen Name Allergen Category Reaction Reaction Severity Criticality Documentation Date Start Date Code Code System Note Provider Name and Address Organization Details Recorded Time 720255 Product containin g penicilli n (product) medicatio n Not available Not available Not available 07/11/2025 77547 8001 SNOMED Winsome Shubham [place], [place] - [facility] 5 08:52:16 231774 cat dander environme nt Not available Not available Not available 07/11/2025 Winsome Jalloh sh[place], [place] - [facility] 5 08:52:22 434929 Canis lupus familiari s extract environme nt Not available Not available Not available 07/11/2025 98142 4 RxNorm Winsome Jalloh sh[place], [place] - [facility] 5 08:52:27 375295 house dust allergeni c extract environme nt,medica tion Not available Not available Not available 07/11/2025 22185 9 RxNorm Winsome Jalloh [place], [place] - [facility] 5 08:52:33 262194 POLLEN EXTRACTS environme nt,medica tion Not available Not available Not available 07/11/2025 70563 6 RxNorm Winsome tadeo, [place] - [facility] 5 08:52:39 91985 Penicilli n Not available Not available Not available Not available 02/06/2024 37156 RxNorm BRIAN DU MD [address] [place] [address], [address] [place] [address] - [facility] 4 12:09:28 Medications Name Sig Start Date Stop Date Status Note LastModified by Organization Details LastModified Time methocarb meera 500 mg tablet 03/14 completed Medicati on ID: [id number] D uration Value: 7 Brand Name: methocar bamol Se nd Method: E-Prescr ibed Sub s Allowed: subs OK Speci al Instruct ion: take 1 tablet by mouth three times a day Medi cationGe nericNam e: methocar bamol Not Available Not Available Not Available clonidine HCl 0.1 mg tablet 07/11 completed Medicati on ID: [id number] D uration Value: 30 Brand Name: clonidin e HCl Send Method: E-Prescr ibed Sub s Allowed: subs OK Medic ationGen ericName : clonidin e HCl Not Available Not Available Not Available gabapenti n 600 mg tablet 07/22 completed Medicati on ID: [id number] D uration Value: 30 Brand Name: gabapent in Send Method: E-Prescr ibed Sub s Allowed: subs OK Speci al Instruct ion: take 1 tablet by mouth three times a day Medi cationGe nericNam e: gabapent in Not Available Not Available Not Available atorvasta tin 20 mg tablet 07/11 completed Medicati on ID: [id number] D uration Value: 30 Brand Name: atorvast atin Sen d Method: E-Prescr ibed Sub s Allowed: subs OK Speci al Instruct ion: take 1 tablet by mouth once daily Me dication GenericN solo: atorvast atin Not Available Not Available Not Available sertralin e 100 mg tablet 2017 active Medicati on ID: [id number] D uration Value: 30 Brand Name: sertrali ne Send Method: E-Prescr ibed Sub s Allowed: subs OK Speci al Instruct ion: take 1 1/2 tablets by mouth once daily Me dication GenericN solo: sertrali ne Not Available Not Available Not Available sumatript an 50 mg tablet 03/14 completed Medicati on ID: [id number] D uration Value: 30 Brand Name: sumatrip to succinat e Send Method: E-Prescr ibed Sub s Allowed: subs OK Medic ationGen ericName : sumatrip to succinat e Not Available Not Available Not Available acyclovir 400 mg tablet 03/14 completed Medicati on ID: [id number] D uration Value: 30 Brand Name: acyclovi r Send Method: E-Prescr ibed Sub s Allowed: subs OK Speci al Instruct ion: take 1 tablet by mouth once daily Me dication GenericN solo: acyclovi r Not Available Not Available Not Available Vitamins B Complex capsule 11/02 completed Medicati on ID: [id number] D uration Value: 30 Brand Name: Vitamins B Complex Send Method: E-Prescr ibed Sub s Allowed: subs OK Medic ationGen ericName : Vitamins B Complex Not Available Not Available Not Available tramadol 50 mg tablet 11/02 completed Medicati on ID: [id number] D uration Value: 25 Brand Name: tramadol Send Method: E-Prescr ibed Sub s Allowed: subs OK Speci al Instruct ion: TK 1 TO 2 TS PO Q 6 H Medica tionGene ricName: tramadol Not Available Not Available Not Available clindamyc in 1 % topical gel 08/31 completed Medicati on ID: [id number] D uration Value: 20 Brand Name: clindamy michelle phosphat e Send Method: E-Prescr ibed Sub s Allowed: subs OK Medic ationGen ericName : clindamy michelle phosphat e Not Available Not Available Not Available trazodone 100 mg tablet 2017 active Medicati on ID: [id number] B rand Name: trazodon e Send Method: E-Prescr ibed Sub s Allowed: subs OK Medic ationGen ericName : trazodon e Not Available Not Available Not Available baclofen 10 mg tablet 08/31 completed Medicati on ID: [id number] D uration Value: 60 Brand Name: baclofen Send Method: E-Prescr ibed Sub s Allowed: subs OK Speci al Instruct ion: TK 2 TS PO HS AND 1 T EVERY MORNING Medicati onGeneri cName: baclofen Not Available Not Available Not Available triamcino lone acetonide 0.1 % topical ointment 03/14 completed Medicati on ID: [id number] D uration Value: 25 Brand Name: triamcin olone acetonid e Send Method: E-Prescr ibed Sub s Allowed: subs OK Medic ationGen ericName : triamcin olone acetonid e Not Available Not Available Not Available gabapenti n 300 mg capsule 11/19 completed Medicati on ID: [id number] D uration Value: 30 Reason: () Brand Name: gabapent in Send Method: E-Prescr ibed Sub s Allowed: subs OK Speci al Instruct ion: take 1 capsule by mouth three times a day Medi cationGe nericNam e: gabapent in Not Available Not Available Not Available [address] [facility] 10 mg tablet 11/05 completed Medicati on ID: [id number] D uration Value: 30 Reason: () Brand [...] aerosol inhaler 07/11 completed Medicati on ID: [id number] D uration Value: 16 Brand Name: albutero l sulfate Send Method: E-Prescr ibed Sub s Allowed: subs SUSANNE Speci al Instruct ion: INL 2 PFS ITL Q 4 H PRF COUGH OR WHZ Medi cationGe nericNam e: albutero l sulfate Not Available Not Available Not Available spironola ctone 50 mg tablet 03/14 completed Medicati on ID: [id number] D uration Value: 30 Brand Name: spironol actone S end Method: E-Prescr ibed Sub s Allowed: subs SUSANNE Martni al Instruct ion: take 1 tablet by mouth twice a day with food Med icationG enericNa me: spironol actone Not Available Not Available Not Available amoxicill in 875 mg-potass ium clavulana te 125 mg tablet 03/14 completed Medicati on ID: [id number] B rand Name: amoxicil marlene-pot clavulan ate Send Method: E-Prescr ibed Sub s Allowed: subs OK Medic ationGen ericName : amoxicil marlene-pot clavulan ate Not Available Not Available Not Available Oyster Shell Calcium-5 00 500 mg (as carbonate 1,250 mg) tablet 2018 active Medicati on ID: [id number] D uration Value: 30 Brand Name: Oyster Shell Calcium 500 Send Method: E-Prescr ibed Sub s Allowed: subs OK Medic ationGen ericName : Oyster Shell Calcium 500 Not Available Not Available Not Available Premarin 0.625 mg/gram vaginal cream 2017 active Medicati on ID: [id number] D uration Value: 30 Brand Name: Premarin Send Method: E-Prescr ibed Sub s Allowed: subs OK Speci al Instruct ion: INSERT 2 GRAMS VAGINALL Y TWICE A WEEK Med icarejiG yuIzabela me: Premarin Not Available Not Available Not Available bupropion HCl XL 300 mg 24 hr tablet, extended release 2017 active Medicati on ID: [id number] D uration Value: 30 Brand Name: bupropio n HCl Send Method: E-Prescr ibed Sub s Allowed: subs OK Speci al Instruct ion: TAKE 1 TABLET BY MOUTH EVERY MORNING. Medicat ionGener icName: bupropio n HCl Not Available Not Available Not Available Fish Oil 340 mg-1,000 mg capsule 2018 active Medicati on ID: [id number] D uration Value: 30 Brand Name: Fish Oil Send Method: E-Prescr ibed Sub s Allowed: subs OK Medic ationGen ericName : Fish Oil Not Available Not Available Not Available Glucosami ne Chondroit Complx Advan 750 mg-100 mg-125 mg-1.65 mg tablet 11/02 completed Medicati on ID: [id number] D uration Value: 30 Brand Name: Glucos Chond Cplx Advanced Send Method: E-Prescr ibed Sub s Allowed: subs OK Speci al Instruct ion: TK 1 T PO D Medica tionGene ricName: Glucos Chond Cplx Advanced Not Available Not Available Not Available cholecalc iferol (vitamin D3) 50 mcg (2,000 unit) capsule 2018 active Medicati on ID: [id number] D uration Value: 30 Brand Name: cholecal ciferol (vitamin D3) Send Method: E-Prescr ibed Sub s Allowed: subs OK Medic ationGen ericName : cholecal ciferol (vitamin D3) Not Available Not Available Not Available dapsone 5 % topical gel 03/14 completed Medicati on ID: [id number] B rand Name: dapsone Send Method: E-Prescr ibed Sub s Allowed: subs OK Speci al Instruct ion: APPLY THIN LAYER EXTERNAL LY TO FACE EVERY DAY IN THE MORNING Medicati onGeneri cName: dapsone Not Available Not Available Not Available Myrbetriq 25 mg tablet,ex tended release 10/15 completed Medicati on ID: [id number] B rand Name: Mak q Send Method: E-Prescr ibed Sub s Allowed: subs OK Medic ationGen ericName : Myrbetri q Not Available Not Available Not Available Konsyl Sugar-Sotero e 6 gram oral powder packet 12/13 completed Medicati on ID: [id number] D uration Value: 30 Reason: () Brand Name: Konsyl Sugar-Fr ee Send Method: E-Prescr ibed Sub s Allowed: subs OK Medic ationGen ericName : Konsyl Sugar-Fr ee Not Available Not Available Not Available ProAir RespiClic k 90 mcg/actua tion breath activated 2017 active Medicati on ID: [id number] B rand Name: ProAir RespiCli ck Send [...] Disorder N Anesthesia Complications N Heart Attack (SC) N Other Skin Condition Y Diabetes N [...] ICD10 Code Diagnosis IMO Codes Diagnosis Note [id number] GOMEZ GOODMAN, RMA Allergy 100 [facility] 100 [facility] [place] [address] 06/25/2025 16:46:58 06/25/2025 17:10:05 Perennial allergic rhinitis [id number] J30.89 Health Concerns Section Related Observation LastModified by Organization Detai ls LastModified Time None Recorded Concern Status LastModified by Organization Details LastModified Time None Recorded Payers Encounter Date Sequence Insurance Name Policy Number Policy Gallagher Covered Member ID Gallagher Member ID Guarantor Name 06/25/2025 1 [employer]: MEDICARE PPO BLUE (MEDICARE REPLACEMENT PPO) [id number] Tamera Salvador [id number] Tamera Salvador OBGyn Episode No OBEpisode recorded.
== END 2025-08-29 07:13 | disposition home or self-care (01) ==
LOC: HO.HPHYSR 07:12
PROVIDERS: PCP Family Medicine; Visit Provider Physical Medicine & Rehabilitation
DX: M46.1 Sacroiliitis, not elsewhere classified (principal); M53.3 Sacrococcygeal disorders, not elsewhere classified
CPT/HCPCS: 27096; J2003; J3301; Q9967